=== PATIENT | female | born 1950 | race Caucasian/White ===

== ENCOUNTER 2017-10-30 11:18 | Outpatient (REF) | payer MEDICARE, MEDICAID, SELFPAY ==
[2017-10-30 11:32] LABS: Absolute Basophil Count 0.03 k/cumm (0.0-0.2); Absolute Eosinophil Count 0.26 k/cumm (0.0-0.7); Absolute Lymphocyte Count 3.15 k/cumm (1.2-3.4); Absolute Monocyte Count 0.71 k/cumm (0.11-0.7); Absolute Neutrophil Count 4.14 k/cumm (1.2-6.7); Basophils % 0.4; Eosinophils % 3.1; HCT 36.1 % (36.0-46.0); HGB 11.9 g/dL (12.0-15.5); Immature Grans % 1.2; Lymphocytes % 37.5; Mean Corpuscular Hemoglobin 35.2 pg (27.0-33.0); Mean Corpuscular Volume 106.8 fL (80-95); Mean Platelet Volume 10.6 fL (8.0-11.0); Monocytes % 8.5; Neutrophils % 49.3; Platelet Count 249 x1000/uL (130-400); RBC 3.38 m/cumm (4.00-5.20); RBC Distribution Width 13.7 % (11.7-14.6); White Blood Cell Count 8.39 k/cumm (4.4-10.8)
[2017-10-30 11:48] LABS: Diff Comment RBC Morph Reviewed
[2017-10-30 11:49] LABS: Anisocytosis 1+; Macrocytosis 2+
[2017-10-30 11:54] LABS: ALT 10 U/L (12-78); AST 18 U/L (15-37); Albumin 2.5 g/dL (3.4-5.0); Alkaline Phosphatase 109 U/L (46-116); Anion Gap 1.9 mmol/L (3-11); BUN 26 mg/dL (7-18); Bilirubin, Total 0.2 mg/dL (0.2-1.0); CO2 34.1 mmol/L (21.0-32.0); CREATININE 1.15 mg/dL (0.55-1.02); Calcium 9.2 mg/dL (8.5-10.1); Chloride 98 mmol/L (98-107); Estimated GFR 47.07 (mL/min/1.73m2); Glucose 184 mg/dL (70-100); Magnesium 2.1 mg/dL (1.8-2.4); Potassium 4.7 mmol/L (3.5-5.1); Sodium 134 mmol/L (136-145); Total Protein 6.6 g/dL (6.4-8.2)
== END 2017-10-30 11:19 ==
LOC: LBN 11:18
PROVIDERS: PCP Family Medicine; Visit Provider Family Medicine
DX: I10 Essential (primary) hypertension (principal); R53.83 Other fatigue; R25.2 Cramp and spasm
CPT/HCPCS: 80053; 83735; 85025

== ENCOUNTER 2017-11-04 13:49 | Outpatient (REF) | payer MEDICARE, MEDICAID, SELFPAY | END 2017-11-04 14:09 | LOC: LBN 13:49 | PROVIDERS: PCP Family Medicine; Visit Provider Family Medicine | DX: R19.7 Diarrhea, unspecified (principal) | CPT/HCPCS: 87324 ==

== ENCOUNTER 2018-01-25 22:28 | Outpatient (REF) | payer MEDICARE, MEDICAID, SELFPAY | END 2018-01-25 22:48 | LOC: LBN 22:28 | PROVIDERS: PCP Family Medicine; Visit Provider Family Medicine | DX: N39.0 Urinary tract infection, site not specified (principal) | CPT/HCPCS: 87077; 87086; 87186 ==

== ENCOUNTER 2018-01-26 12:44 | Outpatient (REF) | payer MEDICARE, MEDICAID, SELFPAY ==
[2018-01-26 13:08] LABS: Abs Immature Grans 0.06 k/cumm (0.0-0.09); Absolute Basophil Count 0.05 k/cumm (0.0-0.2); Absolute Eosinophil Count 0.08 k/cumm (0.0-0.7); Absolute Monocyte Count 0.92 k/cumm (0.11-0.7); Absolute Neutrophil Count 11.52 k/cumm (1.2-6.7); Basophils % 0.3; Eosinophils % 0.5; HCT 40.6 % (36.0-46.0); HGB 12.8 g/dL (12.0-15.5); Immature Grans % 0.4; Lymphocytes % 20.1; Mean Corp. HGB Concentration 31.5 g/dL (32.0-36.0); Mean Corpuscular Hemoglobin 32.9 pg (27.0-33.0); Mean Corpuscular Volume 104.4 fL (80-95); Mean Platelet Volume 11.3 fL (8.0-11.0); Monocytes % 5.8; Neutrophils % 72.9; Platelet Count 306 x1000/uL (130-400); RBC 3.89 m/cumm (4.00-5.20); RBC Distribution Width 13.1 % (11.7-14.6)
[2018-01-26 13:09] LABS: Absolute Lymphocyte Count 3.18 k/cumm (1.2-3.4)
[2018-01-26 13:28] LABS: ALT 14 U/L (12-78); AST 9 U/L (15-37); Albumin 3.1 g/dL (3.4-5.0); Alkaline Phosphatase 173 U/L (46-116); Anion Gap 10.2 mmol/L (3-11); BUN 36 mg/dL (7-18); Bilirubin, Total 0.3 mg/dL (0.2-1.0); CO2 29.8 mmol/L (21.0-32.0); CREATININE 1.36 mg/dL (0.55-1.02); Chloride 106 mmol/L (98-107); Estimated GFR 38.78 (mL/min/1.73m2); Glucose 370 mg/dL (70-100); Potassium 4.3 mmol/L (3.5-5.1); Sodium 146 mmol/L (136-145); Total Protein 7.8 g/dL (6.4-8.2)
[2018-01-26 14:37] LABS: ESR 72 MM/HR (0-30)
[2018-01-27 08:18] LABS: Hemoglobin A1C 8.1 % (4.5-6.2)
== END 2018-01-26 13:04 ==
LOC: LBN 12:44
PROVIDERS: PCP Family Medicine; Visit Provider Family Medicine
DX: I10 Essential (primary) hypertension (principal); F31.9 Bipolar disorder, unspecified; R73.09 Other abnormal glucose; R53.81 Other malaise; R63.4 Abnormal weight loss; M79.604 Pain in right leg; M79.605 Pain in left leg
CPT/HCPCS: 80053; 85652; 83036; 84443; 85025

== ENCOUNTER 2018-02-03 17:39 | Inpatient (IN) | payer MEDICARE, MEDICAID, SELFPAY ==
[2018-02-03] VITALS (105 sets, daily range): BP systolic 53–106; BP diastolic 30–71; PULSE 94–164; RESP 10–41; TEMP 36.4–37.3; O2SAT 73–98
--- NOTE | 2018-02-03 17:44 | DI.CT_ITS ---
SYMPTOM/DIAGNOSIS: UNRESPONSIVE, R/O ACUTE CVA NONCONTRAST HEAD CT: No intracranial hemorrhage or skull fracture is seen. A tube is seen in the nasal cavity and oral pharynx. Atrophy is again noted, grossly stable. IMPRESSION: No acute abnormality.
--- NOTE | 2018-02-03 17:52 | ED.GENADUL_ITS ---
Discharge Plan Disposition Patient Disposition: [facility] INPATIENT Condition: Critical Discharge Details Chief Complaint: Diabetes Clinical Impression: Hyperglycemic hyperosmolar nonketotic coma, HCAP (healthcare-associated pneumonia), Hypoxia, Altered mental status, UTI (urinary tract infection), Septic shock Reason For Visit: non responsive Primary Care Provider: Chasity Vidal ED Provider: [place] Home Meds and New Rx's Prescriptions: No Action lorazepam [Ativan] 0.5 MG tablet 0.5 mg PO TID Qty: 75 RF: 4 quetiapine [Seroquel] 200 MG tablet 300 tab PO BID RF: 0 tiotropium bromide [Spiriva with HandiHaler] 18 MCG capsule, w/inhalation device 1 puff Inhalation DAILY RF: 0 sennosides [senna] 8.6 MG tablet 1 tab PO QAM RF: 0 budesonide-formoterol [Symbicort] 10.2 GM HFA aerosol inhaler 1 inh PO BID RF: 0 nystatin 60 GM powder 2 gm Topical TID Qty: 1 RF: 0 valproic acid 250 mg Capsule 250 mg PO HS RF: 0 citalopram 20 mg Tablet 20 mg PO DAILY RF: 0 ergocalciferol (vitamin D2) [Vitamin D2] 50,000 unit Capsule 50,000 unit PO DIRECTED RF: 0 nitrofurantoin monohyd/m-cryst [Macrobid] 100 mg Capsule 100 mg PO BID RF: 0 divalproex [Depakote ER] 500 MG tablet extended release 24 hr 500 mg PO QAM RF: 0 multivit, iron, min no.8, FA [Therapeutic-M] 1 TAB tablet 1 tab PO DAILY RF: 0 Medical Decision Making 67-year-old female with history of dementia, schizophrenia and diabetes who presents from the [facility] after being found unresponsive with shallow respirations and hypotension. EMS states blood sugar read as high. Vitals per EMS heart rate 120s, blood pressure 80s/40s, O2 sat 80s. Patient arrived to the ED arousable to voice and pain and following some commands. Heart rate 120s, systolic blood pressure 60s, respiratory rate 30s, difficult to obtain O2 sat in the 80s-90s at times. Patient placed on nonrebreather initially. Accucheck HI. 2 IVs placed, bolus IV fluids, labs, urinalysis, stat CT head, chest x-ray. EKG notes a rate of 147, sinus tachycardia, T wave inversion in V2 [address] depression in V2. No acute ST elevation. QTc 547. QRS 122. Stat CT head negative. ABG notes a pH of 7.29, PCO2 45, PO2 61, O2 sat 80%, bicarb 22. Pt placed on nasal bipap - O2 sat 94%. 1844 -- Labs reviewed and noted a white blood cell count of 20, hemoglobin 13, bands 4 INR 2, sodium 136, potassium 4.9, chloride 113, bicarb 25, anion gap 17 , BUN 115, creatinine 3.97, lactate 5.7, troponin 0.13. 1899 -- Delay in obtaining glucose read, lab called and was 1220. Presentation appears consistent with hyperosmolar hyperglycemic state. Patient on second liter and SBP 70s, will place central line. Insulin bolus and drip ordered. 1929 -- central line placed. JANIE Quintanilla d/eleni hospitalist while I was placing central line - pt accepted for admission to ICU. Will start levophed for septic shock due to UTI, pneumonia and associated HHS. Patient O2 sat remains low 88% on nasal BiPAP. Had been as high as 91% on nasal BiPAP. Will give albuterol neb and placed on BiPAP to see if patient tolerates. 2024 -- O2 sat 96% on bipap/neb. No history of CHF endorsed by EMS on patient arrival. Upon search of patient's records, there is a history of CHF. Patient was given 2 L of normal saline due to hypotension. Her lung sounds were diminished at the bases but no obvious crackles were noted. Medical Records Medical records reviewed: Yes I reviewed the patient's medical records. Lab Data Lab results reviewed: Yes I reviewed the patient's lab results. 02/03/18 19:40 Blood Blood Culture - Pending 02/03/18 19:00 Urine - Reflex from Ua Urine Culture - Pending 02/03/18 19:13 Blood Blood Culture - Pending Laboratory Tests Range/Units 02/03/18 02/03/18 02/03/18 18:00 18:00 18:00 WBC (4.4-10.8) k/cumm 20.84 H RBC (4.00-5.20) m/cumm 4.18 Hgb (12.0-15.5) g/dL 13.8 Hct (36.0-46.0) % 44.5 MCV (80-95) fL 106.5 H MCH (27.0-33.0) pg 33.0 MCHC (32.0-36.0) g/dL 31.0 L RDW (11.7-14.6) % 14.2 Plt Count (130-400) x1000/uL 236 MPV (8.0-11.0) fL 13.0 H Immature Gran % 0.0 Neutrophils % 75.0 Lymphocytes % 19.0 Monocytes % 2.0 Eosinophils % 0.0 Basophils % 0.0 Absolute Neutrophils (1.2-6.7) k/cumm 16.46 H Band Neutrophils % 4.0 Absolute Lymphocytes (1.2-3.4) k/cumm 3.96 H Absolute Monocytes (0.11-0.7) k/cumm 0.42 Absolute Eosinophils (0.0-0.7) k/cumm 0.00 Absolute Basophils (0.0-0.2) k/cumm 0.00 Differential Comment Manual differential Atypical Lymphocytes 0 RBC Morphology See below Polychromasia Present Macrocytosis 1+ PT (9.3-10.8) sec INR (1.0-3.5) APTT (21.0-31.4) sec Sample Site pCO2 (34-47) mmHg pO2 (83-108) mmHg O2 Saturation (94-98) % ABG pH (7.35-7.45) ABG HCO3 (22-28) mmol/L ABG Total CO2 (22-29) mmol/L ABG Base Excess (-3-3) mmol/L Oxygen Liter Flow L FiO2 % Sodium (136-145) mmol/L 156 H* Potassium (3.5-5.1) mmol/L 4.9 Chloride (98-107) mmol/L 113 H Carbon Dioxide (21.0-32.0) mmol/L 25.8 Anion Gap (3-11) mmol/L 17.2 H BUN (7-18) mg/dL 115 H* Creatinine (0.55-1.02) mg/dL 3.97 H* Estimated GFR/1.73 m2 (mL/min/1.73m2) 11.27 Glucose (70-100) mg/dL 1220 H* Lactate (0.6-1.4) mmol/L 5.7 H Calcium (8.5-10.1) mg/dL 10.2 H Magnesium (1.8-2.4) mg/dL 3.0 H Total Bilirubin (0.2-1.0) mg/dL 0.2 AST (15-37) U/L 10 L ALT (12-78) U/L 16 Alkaline Phosphatase (46-116) U/L 201 H Ammonia (11-32) umol/L Troponin I (0.00-0.06) ng/mL 0.13 H Total Protein (6.4-8.2) g/dL 8.1 Albumin (3.4-5.0) g/dL 2.4 L Lipase (73-393) U/L 98 TSH (0.358-3.74) uIU/mL Urine Color (Yellow) Urine Clarity Urine pH (5-8) Ur Specific [place] (1.005-1.025) Urine Protein (Negative) mg/dL Urine Ketones (Negative) mg/dL Urine Blood (Negative) Urine Nitrite (Negative) Urine Bilirubin (Negative) Urine Urobilinogen (Up TO 0.2) EU/dL Ur Leukocyte Esterase (Negative) Urine RBC (0-2) Urine WBC (0-5) HPF Ur Epithelial Cells (Negative) HPF Urine Crystals (Negative) HPF Urine Bacteria (Negative) HPF Urine Casts (Negative) LPF Urine Mucus (Negative) Urine Other (Negative) Ur Culture Indicated? Urine Glucose (Negative) mg/dL Range/Units 02/03/18 02/03/18 02/03/18 18:00 18:00 18:00 WBC (4.4-10.8) k/cumm RBC (4.00-5.20) m/cumm Hgb (12.0-15.5) g/dL Hct (36.0-46.0) % MCV (80-95) fL MCH (27.0-33.0) pg MCHC (32.0-36.0) g/dL RDW (11.7-14.6) % Plt Count (130-400) x1000/uL MPV (8.0-11.0) fL Immature Gran % Neutrophils % Lymphocytes % Monocytes % Eosinophils % Basophils % Absolute Neutrophils (1.2-6.7) k/cumm Band Neutrophils % Absolute Lymphocytes (1.2-3.4) k/cumm Absolute Monocytes (0.11-0.7) k/cumm Absolute Eosinophils (0.0-0.7) k/cumm Absolute Basophils (0.0-0.2) k/cumm Differential Comment Atypical Lymphocytes RBC Morphology Polychromasia Macrocytosis PT (9.3-10.8) sec 18.7 H INR (1.0-3.5) 2.0 APTT (21.0-31.4) sec 26.1 Sample Site Left radial pCO2 (34-47) mmHg 45 pO2 (83-108) mmHg 61 L O2 Saturation (94-98) % 88 L ABG pH (7.35-7.45) 7.29 L ABG HCO3 (22-28) mmol/L 22 ABG Total CO2 (22-29) mmol/L 23 ABG Base Excess (-3-3) mmol/L -4.0 L Oxygen Liter Flow L Nrb FiO2 % 15 Sodium (136-145) mmol/L Potassium (3.5-5.1) mmol/L Chloride (98-107) mmol/L Carbon Dioxide (21.0-32.0) mmol/L Anion Gap (3-11) mmol/L BUN (7-18) mg/dL Creatinine (0.55-1.02) mg/dL Estimated GFR/1.73 m2 (mL/min/1.73m2) Glucose (70-100) mg/dL Lactate (0.6-1.4) mmol/L Calcium (8.5-10.1) mg/dL Magnesium (1.8-2.4) mg/dL Total Bilirubin (0.2-1.0) mg/dL AST (15-37) U/L ALT (12-78) U/L Alkaline Phosphatase (46-116) U/L Ammonia (11-32) umol/L Troponin I (0.00-0.06) ng/mL Total Protein (6.4-8.2) g/dL Albumin (3.4-5.0) g/dL Lipase (73-393) U/L TSH (0.358-3.74) uIU/mL 0.54 Urine Color (Yellow) Urine Clarity Urine pH (5-8) Ur Specific [place] (1.005-1.025) Urine Protein (Negative) mg/dL Urine Ketones (Negative) mg/dL Urine Blood (Negative) Urine Nitrite (Negative) Urine Bilirubin (Negative) Urine Urobilinogen (Up TO 0.2) EU/dL Ur Leukocyte Esterase (Negative) Urine RBC (0-2) Urine WBC (0-5) HPF Ur Epithelial Cells (Negative) HPF Urine Crystals (Negative) HPF Urine Bacteria (Negative) HPF Urine Casts (Negative) LPF Urine Mucus (Negative) Urine Other (Negative) Ur Culture Indicated? Urine Glucose (Negative) mg/dL Range/Units 02/03/18 02/03/18 19:00 19:55 WBC (4.4-10.8) k/cumm RBC (4.00-5.20) m/cumm Hgb (12.0-15.5) g/dL Hct (36.0-46.0) % MCV (80-95) fL MCH (27.0-33.0) pg MCHC (32.0-36.0) g/dL RDW (11.7-14.6) % Plt Count (130-400) x1000/uL MPV (8.0-11.0) fL Immature Gran % Neutrophils % Lymphocytes % Monocytes % Eosinophils % Basophils % Absolute Neutrophils (1.2-6.7) k/cumm Band Neutrophils % Absolute Lymphocytes (1.2-3.4) k/cumm Absolute Monocytes (0.11-0.7) k/cumm Absolute Eosinophils (0.0-0.7) k/cumm Absolute Basophils (0.0-0.2) k/cumm Differential Comment Atypical Lymphocytes RBC Morphology Polychromasia Macrocytosis PT (9.3-10.8) sec INR (1.0-3.5) APTT (21.0-31.4) sec Sample Site pCO2 (34-47) mmHg pO2 (83-108) mmHg O2 Saturation (94-98) % ABG pH (7.35-7.45) ABG HCO3 (22-28) mmol/L ABG Total CO2 (22-29) mmol/L ABG Base Excess (-3-3) mmol/L Oxygen Liter Flow L FiO2 % Sodium (136-145) mmol/L Potassium (3.5-5.1) mmol/L Chloride (98-107) mmol/L Carbon Dioxide (21.0-32.0) mmol/L Anion Gap (3-11) mmol/L BUN (7-18) mg/dL Creatinine (0.55-1.02) mg/dL Estimated GFR/1.73 m2 (mL/min/1.73m2) Glucose (70-100) mg/dL Lactate (0.6-1.4) mmol/L Calcium (8.5-10.1) mg/dL Magnesium (1.8-2.4) mg/dL Total Bilirubin (0.2-1.0) mg/dL AST (15-37) U/L ALT (12-78) U/L Alkaline Phosphatase (46-116) U/L Ammonia (11-32) umol/L 53 H Troponin I (0.00-0.06) ng/mL Total Protein (6.4-8.2) g/dL Albumin (3.4-5.0) g/dL Lipase (73-393) U/L TSH (0.358-3.74) uIU/mL Urine Color (Yellow) Yellow Urine Clarity Sl cloudy Urine pH (5-8) 5.5 Ur Specific [place] (1.005-1.025) 1.010 Urine Protein (Negative) mg/dL Negative Urine Ketones (Negative) mg/dL Negative Urine Blood (Negative) Moderate H Urine Nitrite (Negative) Positive H Urine Bilirubin (Negative) Negative Urine Urobilinogen (Up TO 0.2) EU/dL 0.2 Ur Leukocyte Esterase (Negative) Trace H Urine RBC (0-2) >50 H Urine WBC (0-5) HPF 5-10 Ur Epithelial Cells (Negative) HPF Few Urine Crystals (Negative) HPF Negative Urine Bacteria (Negative) HPF Many Urine Casts (Negative) LPF Negative Urine Mucus (Negative) Negative Urine Other (Negative) Negative Ur Culture Indicated? Yes Urine Glucose (Negative) mg/dL >=1000 H ECG Data Attestation: I personally reviewed and interpreted this ECG (s) as follows: HPI General Mode of arrival: EMS . Date/Time Provider Initiated Documentation: 02/03/18 17:44 . Limitations to Documentation: altered mental status . Information obtained by: EMS . HPI Narrative: Patient is a 67-year-old female with history of dementia, diabetes, schizophrenia who presents from the [facility] after found unresponsive with shallow respirations. Patient was noted to have a high blood sugar reading. Per EMS, HR 120s, BP per EMS 80/60s. Unable to obtain IV per EMS. Patient was placed on nonrebreather for O2 sat 80s. Related Data Home Medications Medication Instructions Recorded Confirmed quetiapine [Seroquel] 300 tab PO BID 07/04/13 02/03/18 sennosides [senna] 1 tab PO QAM 07/04/13 02/03/18 tiotropium bromide [Spiriva with 1 puff INHALATION DAILY 07/04/13 02/03/18 HandiHaler] divalproex [Depakote ER] 500 mg PO QAM 10/03/16 02/03/18 multivit, iron, min no.8, FA 1 tab PO DAILY 10/03/16 02/03/18 [Therapeutic-M] budesonide-formoterol [Symbicort] 1 inh PO BID 01/16/17 02/03/18 nystatin 2 gm TOPICAL TID #1 jar 01/19/17 lorazepam [Ativan] 0.5 mg PO TID #75 tab-cap 04/20/17 02/03/18 citalopram 20 mg PO DAILY 02/03/18 02/03/18 ergocalciferol (vitamin D2) 50,000 unit PO DIRECTED 02/03/18 02/03/18 [Vitamin D2] nitrofurantoin monohyd/m-cryst 100 mg PO BID 02/03/18 02/03/18 [Macrobid] valproic acid 250 mg PO HS 02/03/18 02/03/18 Previous Rx's Medication Instructions Recorded nystatin 2 gm TOPICAL TID #1 jar 01/19/17 Allergies Allergy/AdvReac Type Severity Reaction Status Date / Time No Known Allergies Allergy Unverified 02/03/18 19:10 General Stated Complaint: AMS/LOC BHAVESH: 2 Review of Systems Review of Systems Unobtainable due to mental status PFSH Alzheimer's dementia (Chronic) Diabetes (Chronic) Schizophrenia (Chronic) History of ankle surgery (Acute) Medical History Alzheimer's dementia (Chronic) Diabetes (Chronic) Schizophrenia (Chronic) Social History Smoking/Tobacco Use Status: Former Tobacco Use Surgical History History of ankle surgery (Acute) Social History Smoking/Tobacco Use Status: Former Tobacco Use Exam Const General: ill appearing Orientation: other (arousable to voice and pain) HENDC Head: normal to inspection Ears: external ears normal Face and sinus: normal facial exam Mouth: mucous membranes dry Eyes Conjunctivae: conjunctival abnormality bilaterally discharge purulent Pupils: PERRL Neck Neck: normal visual inspection Lymphatic: no lymphadenopathy noted Chest Chest: normal inspection of the chest Resp Auscultation: clear to auscultation bilaterally Cardio Rate: tachycardic Rhythm: regular rhythm GI Inspection: normal to inspection Palpation: soft, not firm, no guarding, no hepatosplenomegaly, no masses and nontender Skin General skin exam: no rashes or lesions noted Neuro General: moves all extremities and other (unresponsive but arousable to voice and pain) Extrem General: normal to inspection and no edema Psych Thought Process: normal Course Vital Signs Temperature 97.5 F L 02/03/18 17:40 Pulse 126 H 02/03/18 17:40 Respiratory Rate 38 H 02/03/18 17:40 Blood Pressure 106/58 L 02/03/18 17:40 Pulse Oximetry 93 L 02/03/18 17:40 Temperature 97.5 F L 02/03/18 17:40 Pulse 126 H 02/03/18 17:40 Respiratory Rate 38 H 02/03/18 17:40 Respiratory Effort 02/03/18 17:44 Blood Pressure 106/58 L 02/03/18 17:40 Pulse Oximetry 93 L 02/03/18 17:40 Oxygen Delivery Method Non-Rebreather 02/03/18 17:40 Procedures Central Line Placement Right Femoral: Time Out Performed: Yes Patient Placed on Monitor/Pulse Ox: Yes Prep: mask, gown and gloves Central Line Prep: Chlorhexidine scrub Local Anesthetic: Lidocaine 1% Central Line Lumen Inserted: triple Post Procedure: good blood return, all ports aspirated, flushed, capped and sutured in place with 3-0 nylon Patient Tolerated Procedure: well Complications: none Critical Care Time Critical Care Time: Yes Total Critical Care Time: 120
[2018-02-03] MEDS: Normal Saline 1,000 ML 1000 ML IV ×3 (18:00→22:18)
[2018-02-03 18:07] LABS: Lactate-non-spesis 5.7 mmol/L (0.6-1.4)
[2018-02-03 18:10] LABS: Abs Immature Grans 0.05 k/cumm (0.0-0.09); FIO2 15 %; FIO2L NRB L; HCT 44.5 % (36.0-46.0); HGB 13.8 g/dL (12.0-15.5); Mean Corpuscular Volume 106.5 fL (80-95); Platelet Count 236 x1000/uL (130-400); RBC 4.18 m/cumm (4.00-5.20); RBC Distribution Width 14.2 % (11.7-14.6); Site Left Radial; White Blood Cell Count 20.84 k/cumm (4.4-10.8)
[2018-02-03 18:11] LABS: HCO3 22 mmol/L (22-28); pCO2 45 mmHg (34-47); pH 7.29 (7.35-7.45); pO2 61 mmHg (83-108); sO2 88 % (94-98); tCO2 23 mmol/L (22-29)
--- NOTE | 2018-02-03 18:14 | DI.RAD_ITS ---
SYMPTOM/DIAGNOSIS: UNRESPONSIVE PORTABLE CHEST: Comparison is made with 18 Mar 2016. Multiple leads are seen overlying the chest. The heart size is normal. Increased densities are again noted at the left lung base which could represent a combination of infiltrate, effusion or atelectasis. The lungs are not well inflated. IMPRESSION: Limited exam. Question of left lower lobe infiltrate.
[2018-02-03 18:25] LABS: PTT Activated 26.1 sec (21.0-31.4); Prothrombin Time 18.7 sec (9.3-10.8)
[2018-02-03 18:26] LABS: ALT 16 U/L (12-78); AST 10 U/L (15-37); Albumin 2.4 g/dL (3.4-5.0); Alkaline Phosphatase 201 U/L (46-116); Anion Gap 17.2 mmol/L (3-11); Bilirubin, Total 0.2 mg/dL (0.2-1.0); CO2 25.8 mmol/L (21.0-32.0); Calcium 10.2 mg/dL (8.5-10.1); Chloride 113 mmol/L (98-107); Estimated GFR 11.27 (mL/min/1.73m2); Lipase 98 U/L (73-393); Potassium 4.9 mmol/L (3.5-5.1); Total Protein 8.1 g/dL (6.4-8.2)
[2018-02-03 18:29] LABS: Absolute Lymphocyte Count 3.96 k/cumm (1.2-3.4); Atypical Lymphocytes % 0
[2018-02-03 18:30] LABS: Absolute Monocyte Count 0.42 k/cumm (0.11-0.7); Diff Comment Manual Differential; Macrocytosis 1+; Polychromasia Present
--- NOTE | 2018-02-03 18:30 | RESPIRATORY ---
Patient placed on nasal CPAP to provide some form of positive pressure. Patient unable to protect airway, not following command and only responds to sternal rub and for this reason, BiPAP not considered. CPAP pressure set to 16 with a 10Lpm oxygen bleed in, small nasal mask used. SpO2 via ear probe 94%
[2018-02-03 18:32] LABS: BUN 115 mg/dL (7-18); CREATININE 3.97 mg/dL (0.55-1.02)
[2018-02-03 18:33] LABS: Sodium 156 mmol/L (136-145)
--- NOTE | 2018-02-03 18:33 | DI.VRAD_ITS ---
EXAM: CT Head Without Contrast EXAM DATE/TIME: 02/03/2018 5:46 PM CLINICAL HISTORY: 67 years old, female; Signs and symptoms; Coma or unconsciousness and other: Unresponsive; Additional info: R/O acute CVA TECHNIQUE: Axial computed tomography images of the head/brain without contrast. Coronal and sagittal reformatted images were created and reviewed. COMPARISON: CT HEAD WITHOUT CONTRAST 10/03/2016 2:18 PM FINDINGS: Brain: Chronic lacunar infarct versus prominent VR space within the inferior right basal ganglia. Age-related involutional changes and chronic microvascular ischemic disease. No evidence for acute transcortical infarct. No mass effect or midline shift. No extra-axial collection. No acute intracranial hemorrhage. Basal cisterns are patent. Ventricles: Normal. No ventriculomegaly. Bones/joints: Normal. No acute fracture. Sinuses: Normal as visualized. No acute sinusitis. Mastoid air cells: Tympanomastoid cavities are clear. Orbits: Bilateral cataract surgery. Soft tissues: Normal. IMPRESSION: No evidence for acute transcortical infarct, acute intracranial hemorrhage, or mass effect. [place] Stroke Program Early CT Score (ASPECTS) = 10 Dictated and Authenticated by: Ugo Osorio MD. Ordering:RUDY SHEETS MD
[2018-02-03 18:52] LABS: Glucose 1220 mg/dL (70-100)
[2018-02-03] MEDS: Insulin REGULAR-Human 100 UNITS/ML UNIT 7 UNITS IV (19:02)
--- NOTE | 2018-02-03 19:03 | DI.VRAD_ITS ---
EXAM: XR Chest, 1 View EXAM DATE/TIME: 02/03/2018 6:14 PM CLINICAL HISTORY: 67 years old, female; Condition or disease; Other: Unresponsive TECHNIQUE: XR of the chest, 1 view. COMPARISON: [place] PORTABLE CHEST ONE VIEW 01/16/2017 9:32 PM FINDINGS: Lungs: Left lower lobe airspace opacity may represent atelectasis, pneumonia, or combination of both. Pleural space: No pneumothorax. No sizable pleural effusion. Heart/Mediastinum: Mild cardiomegaly. Bones/joints: Unremarkable. IMPRESSION: Left lower lobe airspace opacity may represent atelectasis, pneumonia, or combination of both. Dictated and Authenticated by: Ugo Osorio MD. Ordering:STALIN ROOT MD
[2018-02-03 19:30] LABS: Bilirubin Negative (Negative); Blood Moderate (Negative); Clarity Sl Cloudy; Glucose >=1000 mg/dL (Negative); Ketones Negative (Negative); Leukocyte Esterase Trace (Negative); Nitrite Positive (Negative); Urobilinogen 0.2 EU/dL (Up TO 0.2); pH 5.5 (5-8)
[2018-02-03 19:39] LABS: Bacteria Many HPF (Negative); C & S Indicated? Yes; Casts Negative LPF (Negative); Crystals Negative HPF (Negative); Epithelial Cells Few HPF (Negative); Mucus Negative (Negative); Other Cells Negative (Negative); RBC >50 (0-2)
[2018-02-03] MEDS: Albuterol/Ipratropium 3 ML UPD VIAL UPD (19:40)
[2018-02-03] MEDS: PIPERACILLIN/TAZO 3.375 GM in Normal Saline 50 ML IVPB (19:53)
[2018-02-03] MEDS: Normal Saline Flush 10 ML SYR IVP ×3 (19:54→22:29)
[2018-02-03] MEDS: Albuterol 2.5 MG/3 ML INH SOLN VIAL ×2 (20:04→20:07)
[2018-02-03 20:13] LABS: TSH 0.54 uIU/mL (0.358-3.74)
[2018-02-03 20:23] LABS: Ammonia 53 umol/L (11-32)
[2018-02-03 20:24] LABS: Anion Gap 17.4 mmol/L (3-11); CO2 20.6 mmol/L (21.0-32.0); CREATININE 3.48 mg/dL (0.55-1.02); Calcium 8.4 mg/dL (8.5-10.1); Chloride 123 mmol/L (98-107); Estimated GFR 13.12 (mL/min/1.73m2)
[2018-02-03 20:33] LABS: NT-proBNP 2212 pg/mL
[2018-02-03 20:38] LABS: BUN 103 mg/dL (7-18); Glucose 839 mg/dL (70-100); Sodium 161 mmol/L (136-145)
[2018-02-03 20:39] LABS: Potassium 2.9 mmol/L (3.5-5.1)
[2018-02-03] MEDS: POTASSIUM CHLORIDE 10 MEQ/100 ML BAG 100 MEQ IVPB (20:48)
[2018-02-03 20:50] LABS: HCO3 17 mmol/L (22-28); pCO2 41 mmHg (34-47); pH 7.23 (7.35-7.45); pO2 69 mmHg (83-108); sO2 90 % (94-98); tCO2 16 mmol/L (22-29)
[2018-02-03 20:52] LABS: FIO2 60 %; FIO2L BiPAP L; Site Left Radial
--- NOTE | 2018-02-03 21:22 | HPE_ITS ---
Date of service: 02/03/18 Time of Service: 21:18 Assessment and Plan (1) Sepsis: Current visit: Yes Status: Acute Patient meets criteria for sepsis and has required vasopressors in addition to high volume iv fluids. Blood and urine cultures have been sent and patient has been started on Zosyn and Vancomycin for treatment of HCAP. Continue hemodynamic support, aggressive iv fluid hydration for her HHNK, and LUIS. Monitor hourly urine output, repeat her BMP every couple hours w/ repeat troponin and lactate levels. Respiratory support w/ BIPAP and if she fails this then proceed w/ intubation. Add stress dose hydrocortison per surviving sepsis campaing findings. (2) Diabetic hyperosmolar non-ketotic state: Current visit: Yes Status: Acute not clear as to why she was not on any diabetic meds at the long term except a note from Dr. Ronquillo in Dec 02, 2017 indicating that she has been diet controlled w/ reported A1c of 6.9% in July 2017. It could be that her infections caused her to precipitously elevate her glucose and d/t her dementia she was not able to communicate or be aware of how dehydrated she was getting to go into gluocse over 1200 and severe hyperosmolar state w/ LUIS. I will continue aggressive iv fluid hydration however I will repeat her BMP every couple hours and will change her fluids to hypotonic solutions w/ add KCL. I will continue her insulin drip although her UA was negative for ketones. (3) HCAP (healthcare-associated pneumonia): Current visit: Yes Status: Acute continue suportive care w/ BIPAP, aerosolized bronchodilators, iv antibiotics (Vancomycin and Zosyn). If needed proceed w/ intubation and mechanical ventilation. She remains a full code and apparently no guardian was ever set up for her. (4) UTI (urinary tract infection): Current visit: Yes Status: Acute iv fluids and antibiotics as above. (5) Acute kidney injury (nontraumatic): Current visit: Yes Status: Acute monitoring of UO hourly, monitor BMP every couple hours, aggressive iv fluid hydration. if not improving then check renal ultrasound. (6) Elevated troponin I level: Current visit: Yes Status: Acute Probably due to demand ischemia. We will follow her troponin levels and check an echocardiogram in the morning. Treat her underlying sepsis and hyperosmolar hyperglycemic nonketotic state. History of Present Illness Chief Complaint: altered LOC, hyperglycemia, hypotension, hypoxemia Narrative: 67-year-old female resident of the [facility] in [facility] with a past medical history significant for dementia, schizophrenia, diabetes mellitus (not currently on medical treatment) presented to the emergency room after being found unresponsive with shallow respirations and hypotension. EMS report her blood sugars is reading high and her vital signs and showing tachycardia in the 120s and a low blood pressure of 80s over 40s and hypoxemia with oxygen saturation in the 80s. Upon arrival to emergency department she was found to be arousable to voice and pain and follow some simple commands but was not coherent. Heart rate was in the 120 sinus tachycardia and her systolic blood pressure was in the 60s and her respirations were labored and tachypneic in the 30s. Further workup in the emergency room included routine labs including a CBC demonstrating a leukocytosis of 20,000 with 4 bands and elevated INR of 2 and severe hyperglycemia with glucose of 1220 mg/dL and a CMP that showed severe hyponatremia with a serum sodium of 156, chloride 113, CO2 25.8, anion gap of 17.2, and acute kidney injury with a BUN of 115 and creatinine 3.97. Urinalysis was suggestive of UTI with many bacteria with 5-10 white blood cells and positive nitrites but the urinalysis was negative for ketones. Urine glucose was greater than 1000. Blood lactate was elevated at 5.7. Arterial blood gas showed a pH of 7.29 with a PCO2 of 45 PO2 of 61 and bicarbonate of 22. Cardiac troponin I level was elevated at 0.13. Transaminases and lipase are all normal. Alkaline phosphatase was elevated at 201. Total bilirubin was normal at 0.2. Radiologic studies include a chest x-ray and a CT scan of the head. Noncontrast CT scan of the head showed old chronic lacunar infarcts within the inferior right basal ganglia as well as age-related involutional changes and chronic microvascular ischemic disease but no evidence for acute transcortical infarct and no mass-effect or midline shift. No acute intracranial hemorrhage was seen. Chest x-ray was suggestive of a left lower lobe pneumonia versus atelectasis. Treatment in the emergency room included a bolus of IV fluids and initiation of an insulin drip and initiation of nasal BiPAP. Oxygen saturation came up to 96 % patient was started on a norepinephrine drip for hemodynamic support after placement of central line by Dr. [place]. Patient is now admitted to the intensive care unit for treatment of sepsis and healthcare acquired pneumonia as well as hypovolemic shock and hyperosmolar non-ketotic hyperglycemia. Review of Systems Review of Systems Unobtainable due to mental status PFSH COPD (chronic obstructive pulmonary disease) (Chronic) Essential hypertension (Chronic) Breast cancer (Inactive) Alzheimer's dementia (Chronic) Diabetes (Chronic) Schizophrenia (Chronic) History of ankle surgery (Acute) Medical History Alzheimer's dementia (Chronic) Diabetes (Chronic) Schizophrenia (Chronic) Social History Smoking/Tobacco Use Status: Former Tobacco Use Surgical History History of ankle surgery (Acute) Social History Smoking/Tobacco Use Status: Former Tobacco Use Meds Home Medications Medication Instructions Recorded Confirmed Type quetiapine [Seroquel] 300 tab PO BID 07/04/13 02/03/18 History sennosides [senna] 1 tab PO QAM 07/04/13 02/03/18 History tiotropium bromide [Spiriva with 1 puff INHALATION DAILY 07/04/13 02/03/18 History HandiHaler] divalproex [Depakote ER] 500 mg PO QAM 10/03/16 02/03/18 History multivit, iron, min no.8, FA 1 tab PO DAILY 10/03/16 02/03/18 History [Therapeutic-M] budesonide-formoterol [Symbicort] 1 inh PO BID 01/16/17 02/03/18 History nystatin 2 gm TOPICAL TID #1 jar 01/19/17 Rx lorazepam [Ativan] 0.5 mg PO TID #75 tab-cap 04/20/17 02/03/18 History citalopram 20 mg PO DAILY 02/03/18 02/03/18 History ergocalciferol (vitamin D2) 50,000 unit PO DIRECTED 02/03/18 02/03/18 History [Vitamin D2] nitrofurantoin monohyd/m-cryst 100 mg PO BID 02/03/18 02/03/18 History [Macrobid] valproic acid 250 mg PO HS 02/03/18 02/03/18 History Allergies Allergy/AdvReac Type Severity Reaction Status Date / Time No Known Allergies Allergy Unverified 02/03/18 19:10 Exam Const General: acute distress moderate (tachypneic and tachycardic) and combative Nutritional Appearance: average body habitus Orientation: obtunded Limitations: altered mental status [facility] Head: normal to inspection, no palpable skull fracture, normocephalic and atraumatic General nose exam: external nose normal and nares normal Face and sinus: normal facial exam Mouth: other (dry mucous membranes) Teeth and gingiva: edentulous Eyes Periorbital: periorbital findings normal Eyelids: eyelids normal Conjunctivae: conjunctivae normal Sclera: sclerae normal Cornea: corneas normal Pupils: PERRL Neck Neck: normal visual inspection, full ROM, no lymphadenopathy, no meningeal signs , trachea midline and supple Carotids: normal carotid upstroke Chest Chest: normal inspection of the chest and normal palpation of entire chest wall Resp Effort & Inspection: respiratory distress, tachypneic and uses accessory muscles Auscultation: bronchovesicular breath sounds bilaterally and crackles bilaterally Cardio Jugular venous pressure: no JVD Palpation: normal PMI Rate: tachycardic Rhythm: regular rhythm Heart Sounds: no gallops and no murmurs Pulses: brachial pulses present, radial pulses present, posterior tibial pulses present bilaterally 1+ and diminished and dorsalis pedis pulses present bilaterally 1+ and diminished GI Inspection: normal to inspection Palpation: soft and no hepatosplenomegaly Percussion: normal to percussion Auscultation: hypoactive bowel sounds Skin General skin exam: excoriation(s) (right pretibia) Neuro General: moves all extremities and no focal motor deficits Cranial Nerves: no nystagmus, facial strength normal, tongue midline, gag reflex normal, able to rotate head bilaterally and able to elevate shoulders bilaterally Cognition: abnormal cognition (moans to noxious stimuli but does not answer questions nor does she spontaneously open her eyes and does not regard the examiner; GCS=8 ([id number])) Speech: abnormal speech garbled Motor: muscle tone normal throughout Sensory Exam: no sensory deficits noted Extrem General: no joint enlargement, no clubbing, cyanosis or edema, no pedal edema and vascular access (right femoral CVP present) Psych Appearance: disheveled Mental Status: other (agitated and restless) Speech and Movement: other (incoherent noises; no intelligible speech) Mood: other (agitated and restless) Other: obtunded Results Imaging Chest x-ray: image reviewed (IMPRESSION: Left lower lobe airspace opacity may represent atelectasis, pneumonia, or combination of both. Dictated and Authenticated by: Ugo Osorio MD.) Additional studies: CT chest: IMPRESSION: No evidence for acute transcortical infarct, acute intracranial hemorrhage, or mass effect. [place] Stroke Program Early CT Score (ASPECTS) = 10 Dictated and Authenticated by: Ugo Osorio MD. EKG: image reviewed (Sinus tachycardia at a rate of 127 bpm with right bundle branch block with concordant ST T wave changes across the anterior precordial leads similar to previous ECG dated January 16, 2017 with the exception that the heart rate is now faster) Labs : 02/03/18 18:00 02/04/18 04:05 Laboratory Results - last 24 hr 02/03/18 02/03/18 02/03/18 18:00 18:00 18:00 WBC 20.84 H RBC 4.18 Hgb 13.8 Hct 44.5 MCV 106.5 H MCH 33.0 MCHC 31.0 L RDW 14.2 Plt Count 236 MPV 13.0 H Immature Gran % 0.0 Neutrophils % 75.0 Lymphocytes % 19.0 Monocytes % 2.0 Eosinophils % 0.0 Basophils % 0.0 Absolute Neutrophils 16.46 H Band Neutrophils 4.0 Absolute Lymphocytes 3.96 H Absolute Monocytes 0.42 Absolute Eosinophils 0.00 Absolute Basophils 0.00 Differential Comment Manual differential Atypical Lymphocytes 0 RBC Morphology See below Polychromasia Present Macrocytosis 1+ PT INR APTT Sample Site pCO2 pO2 O2 Saturation ABG pH ABG HCO3 ABG Total CO2 ABG Base Excess Oxygen Liter Flow FiO2 Sodium 156 H* Potassium 4.9 Chloride 113 H Carbon Dioxide 25.8 Anion Gap 17.2 H BUN 115 H* Creatinine 3.97 H* Estimated GFR/1.73 m2 11.27 Glucose 1220 H* Lactate 5.7 H Calcium 10.2 H Magnesium 3.0 H Total Bilirubin 0.2 AST 10 L ALT 16 Alkaline Phosphatase 201 H Ammonia Troponin I 0.13 H NT-Pro-B Natriuret Pep Total Protein 8.1 Albumin 2.4 L Lipase 98 TSH Urine Color Urine Clarity Urine pH Ur Specific [place] Urine Protein Urine Ketones Urine Blood Urine Nitrite Urine Bilirubin Urine Urobilinogen Ur Leukocyte Esterase Urine RBC Urine WBC Ur Epithelial Cells Urine Crystals Urine Bacteria Urine Casts Urine Mucus Urine Other Ur Culture Indicated? Urine Glucose 02/03/18 02/03/18 02/03/18 18:00 18:00 18:00 WBC RBC Hgb Hct MCV MCH MCHC RDW Plt Count MPV Immature Gran % Neutrophils % Lymphocytes % Monocytes % Eosinophils % Basophils % Absolute Neutrophils Band Neutrophils Absolute Lymphocytes Absolute Monocytes Absolute Eosinophils Absolute Basophils Differential Comment Atypical Lymphocytes RBC Morphology Polychromasia Macrocytosis PT 18.7 H INR 2.0 APTT 26.1 Sample Site Left radial pCO2 45 pO2 61 L O2 Saturation 88 L ABG pH 7.29 L ABG HCO3 22 ABG Total CO2 23 ABG Base Excess -4.0 L Oxygen Liter Flow Nrb FiO2 15 Sodium Potassium Chloride Carbon Dioxide Anion Gap BUN Creatinine Estimated GFR/1.73 m2 Glucose Lactate Calcium Magnesium Total Bilirubin AST ALT Alkaline Phosphatase Ammonia Troponin I NT-Pro-B Natriuret Pep Total Protein Albumin Lipase TSH 0.54 Urine Color Urine Clarity Urine pH Ur Specific [place] Urine Protein Urine Ketones Urine Blood Urine Nitrite Urine Bilirubin Urine Urobilinogen Ur Leukocyte Esterase Urine RBC Urine WBC Ur Epithelial Cells Urine Crystals Urine Bacteria Urine Casts Urine Mucus Urine Other Ur Culture Indicated? Urine Glucose 02/03/18 02/03/18 02/03/18 19:00 19:55 19:55 WBC RBC Hgb Hct MCV MCH MCHC RDW Plt Count MPV Immature Gran % Neutrophils % Lymphocytes % Monocytes % Eosinophils % Basophils % Absolute Neutrophils Band Neutrophils Absolute Lymphocytes Absolute Monocytes Absolute Eosinophils Absolute Basophils Differential Comment Atypical Lymphocytes RBC Morphology Polychromasia Macrocytosis PT INR APTT Sample Site pCO2 pO2 O2 Saturation ABG pH ABG HCO3 ABG Total CO2 ABG Base Excess Oxygen Liter Flow FiO2 Sodium 161 H* Potassium 2.9 L* D Chloride 123 H Carbon Dioxide 20.6 L Anion Gap 17.4 H BUN 103 H* Creatinine 3.48 H Estimated GFR/1.73 m2 13.12 Glucose 839 H* D Lactate Calcium 8.4 L Magnesium Total Bilirubin AST ALT Alkaline Phosphatase Ammonia Troponin I NT-Pro-B Natriuret Pep 2212 H Total Protein Albumin Lipase TSH Urine Color Yellow Urine Clarity Sl cloudy Urine pH 5.5 Ur Specific [place] 1.010 Urine Protein Negative Urine Ketones Negative Urine Blood Moderate H Urine Nitrite Positive H Urine Bilirubin Negative Urine Urobilinogen 0.2 Ur Leukocyte Esterase Trace H Urine RBC >50 H Urine WBC 5-10 Ur Epithelial Cells Few Urine Crystals Negative Urine Bacteria Many Urine Casts Negative Urine Mucus Negative Urine Other Negative Ur Culture Indicated? Yes Urine Glucose >=1000 H 02/03/18 02/03/18 19:55 20:47 WBC RBC Hgb Hct MCV MCH MCHC RDW Plt Count MPV Immature Gran % Neutrophils % Lymphocytes % Monocytes % Eosinophils % Basophils % Absolute Neutrophils Band Neutrophils Absolute Lymphocytes Absolute Monocytes Absolute Eosinophils Absolute Basophils Differential Comment Atypical Lymphocytes RBC Morphology Polychromasia Macrocytosis PT INR APTT Sample Site Left radial pCO2 41 pO2 69 L O2 Saturation 90 L ABG pH 7.23 L ABG HCO3 17 L ABG Total CO2 16 L ABG Base Excess Oxygen Liter Flow Bipap FiO2 60 Sodium Potassium Chloride Carbon Dioxide Anion Gap BUN Creatinine Estimated GFR/1.73 m2 Glucose Lactate Calcium Magnesium Total Bilirubin AST ALT Alkaline Phosphatase Ammonia 53 H Troponin I NT-Pro-B Natriuret Pep Total Protein Albumin Lipase TSH Urine Color Urine Clarity Urine pH Ur Specific [place] Urine Protein Urine Ketones Urine Blood Urine Nitrite Urine Bilirubin Urine Urobilinogen Ur Leukocyte Esterase Urine RBC Urine WBC Ur Epithelial Cells Urine Crystals Urine Bacteria Urine Casts Urine Mucus Urine Other Ur Culture Indicated? Urine Glucose Last Vital Signs Temp 36.4 C L 02/03/18 17:40 Pulse 103 H 02/03/18 20:31 Resp 31 H 02/03/18 20:31 BP 94/54 L 02/03/18 20:31 Pulse Ox 95 02/03/18 21:10
[2018-02-03] MEDS: VANCOMYCIN 1,000 MG in Normal Saline 250 ML 250 MG IV (22:12)
[2018-02-03 22:17] LABS: Lactate-non-spesis 6.2 mmol/L (0.6-1.4)
[2018-02-03 22:34] LABS: Anion Gap 16.9 mmol/L (3-11); CO2 19.1 mmol/L (21.0-32.0); CREATININE 3.32 mg/dL (0.55-1.02); Calcium 8.9 mg/dL (8.5-10.1); Chloride 124 mmol/L (98-107); Estimated GFR 13.85 (mL/min/1.73m2); Potassium 3.5 mmol/L (3.5-5.1)
[2018-02-03 22:47] LABS: BUN 103 mg/dL (7-18); Glucose 707 mg/dL (70-100); Sodium 160 mmol/L (136-145)
[2018-02-03 22:51] LABS: Troponin I 0.13 ng/mL (0.00-0.06)
[2018-02-03] MEDS: POTASSIUM CHLORIDE/0.45% NACL 1,000 ML 1000 MEQ IV (23:27)
[2018-02-04] VITALS (111 sets, daily range): BP systolic 83–132; BP diastolic 46–89; PULSE 92–128; RESP 5–41; TEMP 36.1–37.3; O2SAT 85–98
[2018-02-04 00:33] LABS: Anion Gap 16.4 mmol/L (3-11); CO2 20.6 mmol/L (21.0-32.0); CREATININE 3.29 mg/dL (0.55-1.02); Calcium 8.8 mg/dL (8.5-10.1); Chloride 126 mmol/L (98-107); Estimated GFR 13.99 (mL/min/1.73m2); Potassium 3.5 mmol/L (3.5-5.1)
[2018-02-04 00:36] LABS: BUN 99 mg/dL (7-18); Glucose 568 mg/dL (70-100)
[2018-02-04 00:37] LABS: Sodium 163 mmol/L (136-145)
[2018-02-04] MEDS: Hydrocortisone SOD SUC. 100 MG VIAL 50 MG IVP ×5 (00:40→23:34)
[2018-02-04] MEDS: Normal Saline Flush 10 ML SYR IVP ×5 (00:41→23:37)
[2018-02-04 01:15] LABS: Glucose 472 mg/dL (70-100)
[2018-02-04 02:30] LABS: CREATININE 3.03 mg/dL (0.55-1.02); Calcium 8.9 mg/dL (8.5-10.1); Chloride 126 mmol/L (98-107); Estimated GFR 15.39 (mL/min/1.73m2); Glucose 425 mg/dL (70-100); Potassium 4.4 mmol/L (3.5-5.1)
[2018-02-04 02:37] LABS: BUN 95 mg/dL (7-18); Sodium 162 mmol/L (136-145); Troponin I 0.18 ng/mL (0.00-0.06)
[2018-02-04 04:22] LABS: Anion Gap 13.2 mmol/L (3-11); CO2 22.8 mmol/L (21.0-32.0); CREATININE 2.87 mg/dL (0.55-1.02); Calcium 8.5 mg/dL (8.5-10.1); Chloride 125 mmol/L (98-107); Estimated GFR 16.38 (mL/min/1.73m2); Glucose 378 mg/dL (70-100); Potassium 4.2 mmol/L (3.5-5.1)
[2018-02-04 04:24] LABS: BUN 91 mg/dL (7-18); Sodium 161 mmol/L (136-145)
[2018-02-04] MEDS: PIPERACILLIN/TAZO 3.375 GM in Normal Saline 50 ML IVPB ×2 (05:49→18:53)
[2018-02-04] MEDS: POTASSIUM CHLORIDE/0.45% NACL 1,000 ML 250 MEQ IV (05:49)
[2018-02-04 07:45] LABS: Prothrombin Time 19.5 sec (9.3-10.8)
[2018-02-04 09:28] LABS: HCT 37.5 % (36.0-46.0); HGB 11.5 g/dL (12.0-15.5); Mean Corp. HGB Concentration 30.7 g/dL (32.0-36.0); Mean Corpuscular Hemoglobin 32.6 pg (27.0-33.0); Mean Corpuscular Volume 106.2 fL (80-95); Platelet Count 195 x1000/uL (130-400); RBC 3.53 m/cumm (4.00-5.20); RBC Distribution Width 13.7 % (11.7-14.6)
[2018-02-04 09:29] LABS: HCO3 19 mmol/L (22-28); pCO2 42 mmHg (34-47); pH 7.26 (7.35-7.45); pO2 86 mmHg (83-108); sO2 97 % (94-98); tCO2 18 mmol/L (22-29)
[2018-02-04 09:31] LABS: Site Right Radial
[2018-02-04 09:33] LABS: FIO2 60 %
[2018-02-04 09:35] LABS: Lactate-non-spesis 2.6 mmol/L (0.6-1.4)
[2018-02-04 09:53] LABS: Calcium 8.2 mg/dL (8.5-10.1); Glucose 292 mg/dL (70-100)
[2018-02-04 09:55] LABS: Albumin 1.6 g/dL (3.4-5.0); Alkaline Phosphatase 117 U/L (46-116); BUN 86 mg/dL (7-18); Bilirubin, Total 0.2 mg/dL (0.2-1.0); CREATININE 2.61 mg/dL (0.55-1.02); Estimated GFR 18.28 (mL/min/1.73m2); Potassium 4.8 mmol/L (3.5-5.1); Sodium 159 mmol/L (136-145); Total Protein 6.2 g/dL (6.4-8.2)
[2018-02-04 09:56] LABS: ALT 13 U/L (12-78); AST 20 U/L (15-37); Anion Gap 12.4 mmol/L (3-11); CO2 21.6 mmol/L (21.0-32.0); Chloride 125 mmol/L (98-107); Troponin I 0.14 ng/mL (0.00-0.06)
[2018-02-04 09:58] LABS: White Blood Cell Count 26.93 k/cumm (4.4-10.8)
[2018-02-04 09:59] LABS: Absolute Neutrophil Count 18.58 k/cumm (1.2-6.7)
--- NOTE | 2018-02-04 10:02 | NUR.NOTE ---
0950 hrs, 04 Feb 2018; I received a call from [facility] Lab r/t Critical lab results for Kalina; Na 159, BUN 86, CR 2,61, Trop 0.14 WBC 26.93. Temo of Lab notes that the cells are morphining, like a Septic type reaction. I passed this information to Dr Canas and Desmond RN/ICU.Nursing Note:
[2018-02-04 10:04] LABS: Absolute Lymphocyte Count 2.96 k/cumm (1.2-3.4); Absolute Monocyte Count 0.54 k/cumm (0.11-0.7)
[2018-02-04 10:05] LABS: Diff Comment Manual Differential; Nucleated RBC 1 /100WBC
[2018-02-04 10:06] LABS: Hypochromasia 1+; Macrocytosis 1+
--- NOTE | 2018-02-04 10:40 | DI.RAD_ITS ---
SYMPTOM/DIAGNOSIS: R/O CHF, PATIENT IN SEPTIC SHOCK PORTABLE CHEST: Comparison is made with portable chest dated 03 Feb 2018. Multiple lines are again noted over chest. The lungs are not well inflated. There has been interval increase in densities seen at the right lower lobe. The left basilar densities also appear to have increased which could represent an increase in effusion. The pulmonary nodule is visible in the inferior aspect of the right upper lobe. IMPRESSION: Increasing bibasilar densities, infiltrates and/or effusions.
[2018-02-04] MEDS: POTASSIUM CHLORIDE/0.45% NACL 1,000 ML 150 MEQ IV (10:47)
--- NOTE | 2018-02-04 12:03 | PHARADMIT ---
Addendum entered by Wilmer Stinson III 02/11/18 09:59: PATIENT IS UNRESPONSIVE, ON COMFORT MEASURES No VS No Labs Received one dose Morphine 4mg sc @0011 Original Note: Addendum entered by Ashlyn Connolly 02/10/18 10:47: patient has been transitioned to [employer] palliative consult done pt comfortable per nursing Original Note: Addendum entered by Fern Mott 02/09/18 17:12: Pharmacy Note Subjective Objective BP-88/57 HR-103 RR-27 K+3.4(up) Na-147 Cl-111 WBC-20.13(up) Assessment oxacillin (day3) and meropenem (day4) continue 1 time furosemide dose ivp today, IV K+ replacement blood and sputum cultures from yesterday still pending Plan continue to watch VS, labs, culture results, and for med changes possible VILMA and repeat swallow eval once more stable discussion about addressing nutritional needs (PEG tube ?) Original Note: Addendum entered by Fern Mott 02/08/18 15:51: Pharmacy Note Subjective still has a wet congested cough per morning report Objective BP-105/55 HR-100 RR-30 K+2.7(down) Na-150(down) Cl-114(down) SCr-1.53(down) Assessment vanco changed to oxacillin yesterday to cover MSSA (day 2 today) meropenem continues (day 3) hydrocortisone dose decreased to 25 mg q12h IV K+ and mag replacement Plan continue to watch VS and labs and culture results- new blood culture done today discussion about addressing nutritional needs (PEG tube ?) Patient will need VILMA ([facility] ?) and swallow evaluation once more stable Original Note: Addendum entered by Wilmer Stinson III 02/07/18 11:02: Pharmacy Note Subjective Patient is slow recovery from sepsis. BP & K+ are still low, Sodium high. is running D5W to bring sodium down, but with her also on IV steroids FSBS are high Objective Temp:37.6C BP-109/54 K+2.8 Na-153 FSBS-357 SCr-1.70 WBC-=11.39 H&H-10.2/32 Albumin-1.2 Assessment Vancomycin trough at 9PM tonight (day 5) Merpenem for ESBL E.Coli continues. MD to ordered PPi Plan MD is wanting for sepsis to clear before addresing nutritional needs (PEG tube ?) Patient will need VILMA ([facility] ?) and swallow evaluation once able. Watch Vancomycin Original Note: Addendum entered by Wilmer Stinson III 02/06/18 12:38: Pharmacy Note Subjective ESBL E.Coli detected, Zosyn DC'd Meropenem started. HHNK-resolved Objective VS-OK BP-106/53 Temp-38.1C Na-157 Cl- 119 K+2.6 SCr-2.02 WBC-14.66 H&H-OK Plts-133 (dropping), wgt-69.5 kg (up 6.5 kg since admission) No BM Assessment Vasopresin & Levophed was used to maintain BP, dc'd now. Vancomycin for HCAP, Heparin SC for DVT roph. Plan Patient appears to be improving, Watch Lytes, SCr, Vanvco trough Original Note: Addendum entered by Fern Mott 02/05/18 16:56: Pharmacy Note Subjective Objective BP-111/56 HR-93 Tmax-38 Na-158 [id number] BUN-88(up) SCr-2.32(down) WBC-22.15(down) BG-463 Assessment zosyn and vanco continue hydrocortisone dose decreased to 25 mg Q6H 30 mg total insulin glargine ordered this morning, 20 mg insulin glargine ordered BID blood cultures growing gram positive cocci, urine culture grew E.coli and gram negative storm Plan continue to watch VS, labs and for med changes, order vanco trough when needed Original Note: Admission Pharmacy Clinical Review hypovolemic shock, HHNK, pneumonia Code Status Full Code Current Weight 63 kg Renally Cleared and Narrow Therapeutic Index Meds crcl ~16ml/min QTc Value / Action Taken 547. pip/kita listed as CR BP Control, Fever 109/69 afebrile Electrolytes reviewed Na 162, DVT Prophylaxis no, will ask MD Opiate Usage / Scheduled Bowel Regimen Ordered na Plt/SCr for Heparin / Enoxaparin 195/3.03 INR for Warfarin 2.0 H/H stable, WBC/Bands 11.5/37.5 Antibiotic appropriateness vanco, pip/tazo for HAP Cultures and Sensitivities UC prelim dram neg storm, BC pending Surgical ABX d/c within 24 hr na DM control / Insulin Dosing FS 255, on insulin infusion Heart Failure (Check EF%) ([id number]'s, B-Block, Diuretics) IV to PO Switch Home Meds Reviewed Tiotropium prescribing information cautions that concurrent use of any other anticholinergic drugs should be avoided due to the risk for additive/excessive anticholinergic effects.1 valproate-induced augmentation of lorazepam effects. Home Meds Not Ordered quetiapine [Seroquel] 300 tab PO BID 07/04/13 [History Confirmed 02/03/18] sennosides [senna] 1 tab PO QAM 07/04/13 [History Confirmed 02/03/18] tiotropium bromide [Spiriva with HandiHaler] 1 puff INHALATION DAILY divalproex [Depakote ER] 500 mg PO QAM 10/03/16 multivit, iron, min no.8, FA [Therapeutic-M] 1 tab PO DAILY 10/03/16 budesonide-formoterol [Symbicort] 1 inh PO BID 01/16/17 nystatin 2 gm TOPICAL TID #1 jar 01/19/17 [Rx] lorazepam [Ativan] 0.5 mg PO TID #75 tab-cap 04/20/17 citalopram 20 mg PO DAILY 02/03/18 [History Confirmed 02/03/18] ergocalciferol (vitamin D2) [Vitamin D2] 50,000 unit PO DIRECTED 02/03/18 nitrofurantoin monohyd/m-cryst [Macrobid] 100 mg PO BID 02/03/18 valproic acid 250 mg PO HS 02/03/18 [History Confirmed 02/03/18] Comments
--- NOTE | 2018-02-04 12:30 | MERGE_ITS ---
*[facility]* *[facility]* [address] [place] [address] Date of study: 02/04/2018 Transthoracic Echocardiography M-mode, complete 2D, complete spectral Doppler, and color Doppler *STUDY CONCLUSIONS* Summary: 1. Left ventricle: The cavity size was normal. Wall thickness was at the upper limits of normal. Systolic function was normal. The estimated ejection fraction was 60-65%. Wall motion was normal; there were no regional wall motion abnormalities. 2. Right ventricle: The cavity size was dilated. Systolic function was low normal. 3. Ventricular septum: The contour showed systolic flattening. These changes are consistent with RV pressure overload. 4. Pulmonary arteries: Pulmonary systolic pressure was increased, in the range of 50mm Hg to 55mm Hg. 5. Inferior vena cava: The vessel was normal in size. The respirophasic diameter changes were in the normal range (greater than or equal to 50%), consistent with normal central venous pressure. *PATIENT PRESENTATION* Height: 162.6cm ((64in) ) S/D Pressure: 126 / 72 Weight: 62.6kg ((137.7lb) ) BSA: 1.69m^2 Test start time: 12:40 PM. Test stop time: 01:40 PM. PERFORMING Unknown PERFORMING [facility] ORDERING Vickey Staton REFERRING Vickey Staton ASSEMBLY PERSON RT Tato (R)(CT), WAGNER *PROCEDURE DATA* Procedure information: The patient was identified by two identifiers. This study was interpreted by [facility]. Pertinent images and digital data are archived for permanent storage and are available for subsequent review. Comparison was made to the study of 02/16/2014. Study status: Routine. Transthoracic echocardiography. M-mode, complete 2D, complete spectral Doppler, and color Doppler. A Transthoracic Echocardiogram was performed. Scanning was performed from the parasternal, apical, subcostal, and suprasternal notch acoustic windows. Images were obtained using an [id number] cardiac ultrasound machine. Image quality was adequate. Study completion: The patient tolerated the procedure well. There were no complications. History: PMH: Evaluate LV function. Patient with hypovolemic shock. *CARDIAC ANATOMY* Left ventricle: The cavity size was normal. Wall thickness was at the upper limits of normal. Systolic function was normal. The estimated ejection fraction was 60-65%. Wall motion was normal; there were no regional wall motion abnormalities. Findings consistent with diastolic dysfunction. There was no evidence of elevated ventricular filling pressure by Doppler parameters. Aortic valve: Trileaflet; mildly thickened leaflets. Mobility was not restricted. Doppler: Transvalvular velocity was within the normal range. There was no stenosis. There was no significant regurgitation. VTI ratio of LVOT to aortic valve: 0.56. Valve area (VTI): 1.7cm^2. Indexed valve area (VTI): 1cm^2/m^2. Peak velocity ratio of LVOT to aortic valve: 0.59. Valve area (Vmax): 1.8cm^2. Indexed valve area (Vmax): 1.1cm^2/m^2. Mean velocity ratio of LVOT to aortic valve: 0.56. Valve area (Vmean): 1.7cm^2. Indexed valve area (Vmean): 1cm^2/m^2. Mean gradient (S): 6.8mm Hg. Peak gradient (S): 12.2mm Hg. Aorta: Aortic root: The aortic root was normal in size. Ascending aorta: The ascending aorta was normal in size. Mitral valve: Structurally normal valve. Mobility was not restricted. Doppler: Transvalvular velocity was within the normal range. There was no evidence for stenosis. There was no significant regurgitation. Valve area by pressure half-time: 4.1cm^2. Indexed valve area by pressure half-time: 2.4cm^2/m^2. Left atrium: The atrium was normal in size. Right ventricle: The cavity size was dilated. Systolic function was low normal. Ventricular septum: The contour showed systolic flattening. These changes are consistent with RV pressure overload. Pulmonic valve: Poorly visualized. Doppler: Transvalvular velocity was within the normal range. There was no evidence for stenosis. There was no significant regurgitation. Tricuspid valve: Structurally normal valve. Doppler: Transvalvular velocity was within the normal range. There was no evidence for stenosis. There was mild regurgitation. Pulmonary artery: Poorly visualized. Pulmonary systolic pressure was increased, in the range of 50mm Hg to 55mm Hg. Right atrium: The atrium was normal in size. Pericardium: There was no pericardial effusion. Systemic veins: Inferior vena cava: The vessel was normal in size. The respirophasic diameter changes were in the normal range (greater than or equal to 50%), consistent with normal central venous pressure. Measurements Left ventricle Value Reference LV ID, ED, PLAX 4.0 cm 3.5 - 6.0 LV ID, ES, PLAX 2.6 cm 2.1 - 4.0 LV PW thickness, ED, PLAX 1.0 cm LV end-diastolic volume, 1-p A4C 70 ml LV ejection fraction, 1-p A4C 65 % LV e', lateral 0.086 m/sec LV E/e', lateral 8 Ventricular septum Value Reference IVS thickness, ED, PLAX 1.0 cm LVOT Value Reference LVOT ID, A-P 2.0 cm LVOT area 3.1 cm^2 LVOT peak velocity, S 1.03 m/sec LVOT mean velocity, S 0.69 m/sec LVOT VTI, S 14.5 cm LVOT peak gradient, S 4.2 mm Hg LVOT mean gradient, S 2.2 mm Hg Stroke volume (SV), LVOT DP 45 ml Stroke index (SV/bsa), LVOT DP 27 ml/m^2 Aortic valve Value Reference Aortic valve peak velocity, S 1.7 m/sec Aortic valve mean velocity, S 1.23 m/sec Aortic valve VTI, S 26.0 cm Aortic mean gradient, S 6.8 mm Hg Aortic peak gradient, S 12.2 mm Hg VTI ratio, LVOT/AV 0.56 Aortic valve area, VTI 1.7 cm^2 Velocity ratio, peak, LVOT/AV 0.59 Aortic valve area, peak velocity 1.8 cm^2 Velocity ratio, mean, LVOT/AV 0.56 Aortic valve area, mean velocity 1.7 cm^2 Aortic valve area/bsa, mean velocity 1 cm^2/m^2 Aorta Value Reference Aortic root ID, ED 3.0 cm Ascending aorta ID, A-P, S 3.1 cm RVOT Value Reference RVOT VTI, S 15.8 cm Left atrium Value Reference LA ID, A-P, ES 3.6 cm LA ID/bsa, A-P 2.1 cm/m^2 <=2.2 LA area, ES, A4C 12.2 cm^2 8.8 - 23.4 LA area, ES, A2C 12 cm^2 LA volume, ES, 2-p 32 ml LA volume/bsa, ES, 2-p 19 ml/m^2 LA/aortic root ratio 1.22 Mitral valve Value Reference Mitral E-wave peak velocity 0.7 m/sec Mitral A-wave peak velocity 0.92 m/sec Mitral deceleration time 187 ms 150 - 230 Mitral pressure half-time 54 ms Mitral E/A ratio, peak 0.76 Mitral valve area, PHT, DP 4.1 cm^2 Tricuspid valve Value Reference Tricuspid regurg peak velocity 3.5 m/sec Tricuspid peak RV-RA gradient 49.1 mm Hg Right atrium Value Reference RA area, ES, A4C 12.2 cm^2 8.3 - 19.5 Legend: (L) and (H) chayito values outside specified reference range. I have personally reviewed the images and have reviewed and edited the reported findings. Electronically signed by Gavin Keane 02/04/2018 14:59
--- NOTE | 2018-02-04 13:22 | PDOC.CMIN ---
- If Service Date Differs Date of service: 02/04/18 Time of Service: 08:30 Care Management Initial Assess REASON FOR HOSPITALIZATION:: Sepsis, DKA, HCAP, LUIS, elevated troponin, UTI PAST MEDICAL HISTORY/PAST SURGICAL HISTORY:: DM, Dementia, schizophrenia, hypercalcemia. anemia, breast cancer, lung nodules, COPD. PREVIOUS FUNCTIONAL STATUS/SOCIAL/FAMILY SUPPORTS:: Pt resides at [facility] in [place]. Pt previously resided at [place], until she could no longer be managed there. Pt has been a resident of The [facility] since 2016. CM contacted the [facility] and identified pending guardian and current DPOA which is brother Miguelito. His number is [phone]. Kalina can be physcially agressive at times. CURRENT FUNCTIONAL STATUS:: Kalina is not alert at the time of CM visit. She is on bipap when CM enters the room. CM contacted the [facility] and reviewed code status last Advance directive on file is that she is a full code. CM contacted agent Miguelito Perez and he would like his sister to have full treatment including intubation. Miguelito has questions r/t care he states that he will be here this evening to visit the patient. CM did review clinical status and treatment with Brother and he agrees to current plan. He would like to be notified if there are any changes. ADVANCE DIRECTIVES:: On file - son Wilver is not available, Her second agent is Miguelito her brother. Has patient been provided with information about the portal?: No Did the patient sign up for the portal?: No CODE STATUS:: Full Code INSURANCE COVERAGE / FINANCIAL ISSUES:: Medicare, Medicaid CURRENT HOME/COMMUNITY SERVICES/EQUIPMENT:: Tri lives at the [facility] and will return there when she is medically ready. PRIMARY CARE PHYSICIAN:: POTENTIAL DISCHARGE NEEDS:: Transition to the [facility] when medically ready, will need transportation PATIENT/FAMILY EDUCATION NEEDS:: Education, limitations and discharge planning. ANTICIPATED BARRIERS TO DISCHARGE:: None at this time. TRANSPORTATION:: To be determined prior to disposition and coordinated by CM PLAN:: Tri is currently receiving care in the ICU she is not verbal with CM at this time. She is receiving broad spectrim antibiotics and medications to support her blood pressure. She is currently on BIPAP. The [facility] has been updated and advance directives placed in chart. Brother Miguelito is here with her and has been updated by primary nurse and CM. CM to continue to provide support to patient, family and care team ongoing discharge planning and disposition.
--- NOTE | 2018-02-04 14:10 | INITIAL_ITS ---
- If Service Date Differs Date of service: 02/04/18 Time of Service: 08:30 Care Management Initial Assess REASON FOR HOSPITALIZATION:: Sepsis, DKA, HCAP, LUIS, elevated troponin, UTI PAST MEDICAL HISTORY/PAST SURGICAL HISTORY:: DM, Dementia, schizophrenia, hypercalcemia. anemia, breast cancer, lung nodules, COPD. PREVIOUS FUNCTIONAL STATUS/SOCIAL/FAMILY SUPPORTS:: Pt resides at [facility] in [place]. Pt previously resided at [place], until she could no longer be managed there. Pt has been a resident of The [facility] since 2016. CM contacted the [facility] and identified pending guardian and current DPOA which is brother Miguelito. His number is [phone]. Kalina can be physcially agressive at times. CURRENT FUNCTIONAL STATUS:: Kalina is not alert at the time of CM visit. She is on bipap when CM enters the room. CM contacted the [facility] and reviewed code status last Advance directive on file is that she is a full code. CM contacted agent Miguelito Perez and he would like his sister to have full treatment including intubation. Miguelito has questions r/t care he states that he will be here this evening to visit the patient. CM did review clinical status and treatment with Brother and he agrees to current plan. He would like to be notified if there are any changes. ADVANCE DIRECTIVES:: On file - son Wilver is not available, Her second agent is Miguelito her brother. Has patient been provided with information about the portal?: No Did the patient sign up for the portal?: No CODE STATUS:: Full Code INSURANCE COVERAGE / FINANCIAL ISSUES:: Medicare, Medicaid CURRENT HOME/COMMUNITY SERVICES/EQUIPMENT:: Tri lives at the [facility] and will return there when she is medically ready. PRIMARY CARE PHYSICIAN:: POTENTIAL DISCHARGE NEEDS:: Transition to the [facility] when medically ready, will need transportation PATIENT/FAMILY EDUCATION NEEDS:: Education, limitations and discharge planning. ANTICIPATED BARRIERS TO DISCHARGE:: None at this time. TRANSPORTATION:: To be determined prior to disposition and coordinated by CM PLAN:: Tri is currently receiving care in the ICU she is not verbal with CM at this time. She is receiving broad spectrim antibiotics and medications to support her blood pressure. She is currently on BIPAP. The [facility] has been updated and advance directives placed in chart. Brother Miguelito is here with her and has been updated by primary nurse and CM. CM to continue to provide support to patient, family and care team ongoing discharge planning and disposition.
[2018-02-04 15:26] LABS: Lactate-non-spesis 1.6 mmol/L (0.6-1.4)
[2018-02-04] MEDS: Albuterol/Ipratropium 3 ML UPD VIAL UPD ×2 (15:29→23:37)
[2018-02-04 16:18] LABS: Anion Gap 13.3 mmol/L (3-11); CO2 22.7 mmol/L (21.0-32.0); CREATININE 2.39 mg/dL (0.55-1.02); Calcium 8.2 mg/dL (8.5-10.1); Chloride 126 mmol/L (98-107); Estimated GFR 20.23 (mL/min/1.73m2); Glucose 88 mg/dL (70-100); Magnesium 1.8 mg/dL (1.8-2.4); Potassium 4.9 mmol/L (3.5-5.1)
[2018-02-04 16:23] LABS: BUN 84 mg/dL (7-18)
[2018-02-04 16:24] LABS: Sodium 162 mmol/L (136-145)
[2018-02-04] MEDS: Furosemide 20 MG/2 ML VIAL 10 MG IV (16:43)
[2018-02-04] MEDS: DEXTROSE 5%-WATER 1,000 ML 75 ML IV (16:44)
[2018-02-04] MEDS: Enoxaparin 30 MG/0.3 ML SYR SC (16:45)
--- NOTE | 2018-02-04 18:03 | PGE_ITS ---
Date of Service Date of service: 02/04/18 Time of Service: 09:00 Assessment and Plan (1) Septic shock: Current visit: Yes Status: Resolved Required 2 pressors. Blood cultures pending. Urince C&S w/ GNR >100,000 CFU. Continue broad spectrum antibiotics. Monitor lactates, WBC, vitals. (2) Sepsis: Current visit: Yes Status: Acute As above. Continue broad spectrum antibiotics (zosyn, vancomycin, stress dose steroids). Bandemia is rather impressive - and, if continues to worsen, I would consult hem/onc. (3) UTI (urinary tract infection): Current visit: Yes Status: Acute As above. Has a benítez. (4) HCAP (healthcare-associated pneumonia): Current visit: Yes Status: Acute As above. Keep on BiPAP tonight. (5) Diabetic hyperosmolar non-ketotic state: Current visit: Yes Status: Resolved Off of insulin gtt as of the time I am writing this note at 6 pm. Transitioned to sliding scale insulin. A1C of 10 indicates that the patient will likely require insulin on discharge. (6) Elevated troponin I level: Current visit: Yes Status: Acute In setting of LUIS and sepsis, unlikely to be of clinical significance. No further ischemic workup at this time. (7) COPD (chronic obstructive pulmonary disease): Current visit: No Status: Chronic In Acute exacerbation. Continue BiPAP, steroids, nebs, antibiotics (8) Acute kidney injury (nontraumatic): Current visit: Yes Status: Acute with multiple acid-base disorder, due to sepsis, dehydration of HHNK. Baseline creatinine is closer to 1.2. IVF presently on hold as the patient is clinically fluid overloaded. Will monitor serial creatinines and volume status. (9) Toxic metabolic encephalopathy: Current visit: Yes Status: Acute Likely part of sepsis, seems to be improving. Continue to monitor. (10) Dementia: Current visit: No Status: Chronic Resident of retirement at baseline. Will monitor behaviors. (11) Anemia: Current visit: No Status: Chronic Macrocytic. H/H near baseline. Checking B12 levels now would not yield is clinically significant results (inflammatory marker). (12) Breast cancer: Current visit: No Status: Inactive Follow up as outpatient (13) DVT prophylaxis: Current visit: Yes Status: Acute Lovenox (14) Discharge planning issues: Current visit: Yes Status: Acute Guardianship in process of application. Full code. Subjective Interval history since last seen: The patient remains on BiPAP, withdraws from pain/noxious stimuli. She was on both levophed and vasopressin, but was able to be weaned off of both pressors. Nursing notes several wounds (present on admission): R heel pressure wound, R tibial surface, R thigh burn, L coccyx wound. The patient is nonverbal with us. Exam Narrative Exam Narrative: General: Middle aged female, appears older than her stated age, laying in bed, on BiPAP, not following commands, withdraws from pain ; tracking HEENT: Tracking, EOMI; dry yellow crust in Bilateral eyes Heart: RRR, no m/r/g, tachycardic Lungs: Ronchi and rales B GI: abdomen soft, nontender, nondistended Extremities: trace edema B feet, +1 pedal pulses B, feet warm, pale, no clubbing /cyanosis. Long toenails. R heel pressure wound. R thigh wound (?ca), R tibial surface excoriations. Objective Objective Clinical Data: Abnormal lab results 02/03/18 02/03/18 02/03/18 Range/Units 18:00 18:00 18:00 WBC 20.84 H (4.4-10.8) k/cumm RBC (4.00-5.20) m/cumm Hgb (12.0-15.5) g/dL MCV 106.5 H (80-95) fL MCHC 31.0 L (32.0-36.0) g/dL MPV 13.0 H (8.0-11.0) fL Absolute Neutrophils 16.46 H (1.2-6.7) k/cumm Absolute Lymphocytes 3.96 H (1.2-3.4) k/cumm PT (9.3-10.8) sec pO2 (83-108) mmHg O2 Saturation (94-98) % ABG pH (7.35-7.45) ABG HCO3 (22-28) mmol/L ABG Total CO2 (22-29) mmol/L ABG Base Excess (-3-3) mmol/L Sodium 156 H* (136-145) mmol/L Potassium (3.5-5.1) mmol/L Chloride 113 H (98-107) mmol/L Carbon Dioxide (21.0-32.0) mmol/L Anion Gap 17.2 H (3-11) mmol/L BUN 115 H* (7-18) mg/dL Creatinine 3.97 H* (0.55-1.02) mg/dL Glucose 1220 H* (70-100) mg/dL Hemoglobin A1c (4.5-6.2) % Lactate 5.7 H (0.6-1.4) mmol/L Calcium 10.2 H (8.5-10.1) mg/dL Magnesium 3.0 H (1.8-2.4) mg/dL AST 10 L (15-37) U/L Alkaline Phosphatase 201 H (46-116) U/L Ammonia (11-32) umol/L Troponin I 0.13 H (0.00-0.06) ng/mL NT-Pro-B Natriuret Pep ( - 299) pg/mL Total Protein (6.4-8.2) g/dL Albumin 2.4 L (3.4-5.0) g/dL Urine Blood (Negative) Urine Nitrite (Negative) Ur Leukocyte Esterase (Negative) Urine RBC (0-2) Urine Glucose (Negative) mg/dL Total Valproic Acid (50-100) ug/mL 02/03/18 02/03/18 02/03/18 Range/Units 18:00 18:00 19:00 WBC (4.4-10.8) k/cumm RBC (4.00-5.20) m/cumm Hgb (12.0-15.5) g/dL MCV (80-95) fL MCHC (32.0-36.0) g/dL MPV (8.0-11.0) fL Absolute Neutrophils (1.2-6.7) k/cumm Absolute Lymphocytes (1.2-3.4) k/cumm PT 18.7 H (9.3-10.8) sec pO2 61 L (83-108) mmHg O2 Saturation 88 L (94-98) % ABG pH 7.29 L (7.35-7.45) ABG HCO3 (22-28) mmol/L ABG Total CO2 (22-29) mmol/L ABG Base Excess -4.0 L (-3-3) mmol/L Sodium (136-145) mmol/L Potassium (3.5-5.1) mmol/L Chloride (98-107) mmol/L Carbon Dioxide (21.0-32.0) mmol/L Anion Gap (3-11) mmol/L BUN (7-18) mg/dL Creatinine (0.55-1.02) mg/dL Glucose (70-100) mg/dL Hemoglobin A1c (4.5-6.2) % Lactate (0.6-1.4) mmol/L Calcium (8.5-10.1) mg/dL Magnesium (1.8-2.4) mg/dL AST (15-37) U/L Alkaline Phosphatase (46-116) U/L Ammonia (11-32) umol/L Troponin I (0.00-0.06) ng/mL NT-Pro-B Natriuret Pep ( - 299) pg/mL Total Protein (6.4-8.2) g/dL Albumin (3.4-5.0) g/dL Urine Blood Moderate H (Negative) Urine Nitrite Positive H (Negative) Ur Leukocyte Esterase Trace H (Negative) Urine RBC >50 H (0-2) Urine Glucose >=1000 H (Negative) mg/dL Total Valproic Acid (50-100) ug/mL 02/03/18 02/03/18 02/03/18 Range/Units 19:55 19:55 19:55 WBC (4.4-10.8) k/cumm RBC (4.00-5.20) m/cumm Hgb (12.0-15.5) g/dL MCV (80-95) fL MCHC (32.0-36.0) g/dL MPV (8.0-11.0) fL Absolute Neutrophils (1.2-6.7) k/cumm Absolute Lymphocytes (1.2-3.4) k/cumm PT (9.3-10.8) sec pO2 (83-108) mmHg O2 Saturation (94-98) % ABG pH (7.35-7.45) ABG HCO3 (22-28) mmol/L ABG Total CO2 (22-29) mmol/L ABG Base Excess (-3-3) mmol/L Sodium 161 H* (136-145) mmol/L Potassium 2.9 L* D (3.5-5.1) mmol/L Chloride 123 H (98-107) mmol/L Carbon Dioxide 20.6 L (21.0-32.0) mmol/L Anion Gap 17.4 H (3-11) mmol/L BUN 103 H* (7-18) mg/dL Creatinine 3.48 H (0.55-1.02) mg/dL Glucose 839 H* D (70-100) mg/dL Hemoglobin A1c (4.5-6.2) % Lactate (0.6-1.4) mmol/L Calcium 8.4 L (8.5-10.1) mg/dL Magnesium (1.8-2.4) mg/dL AST (15-37) U/L Alkaline Phosphatase (46-116) U/L Ammonia 53 H (11-32) umol/L Troponin I (0.00-0.06) ng/mL NT-Pro-B Natriuret Pep 2212 H ( - 299) pg/mL Total Protein (6.4-8.2) g/dL Albumin (3.4-5.0) g/dL Urine Blood (Negative) Urine Nitrite (Negative) Ur Leukocyte Esterase (Negative) Urine RBC (0-2) Urine Glucose (Negative) mg/dL Total Valproic Acid (50-100) ug/mL 02/03/18 02/03/18 02/03/18 Range/Units 20:47 21:55 22:00 WBC (4.4-10.8) k/cumm RBC (4.00-5.20) m/cumm Hgb (12.0-15.5) g/dL MCV (80-95) fL MCHC (32.0-36.0) g/dL MPV (8.0-11.0) fL Absolute Neutrophils (1.2-6.7) k/cumm Absolute Lymphocytes (1.2-3.4) k/cumm PT (9.3-10.8) sec pO2 69 L (83-108) mmHg O2 Saturation 90 L (94-98) % ABG pH 7.23 L (7.35-7.45) ABG HCO3 17 L (22-28) mmol/L ABG Total CO2 16 L (22-29) mmol/L ABG Base Excess (-3-3) mmol/L Sodium 160 H* (136-145) mmol/L Potassium (3.5-5.1) mmol/L Chloride 124 H (98-107) mmol/L Carbon Dioxide 19.1 L (21.0-32.0) mmol/L Anion Gap 16.9 H (3-11) mmol/L BUN 103 H* (7-18) mg/dL Creatinine 3.32 H (0.55-1.02) mg/dL Glucose 707 H* (70-100) mg/dL Hemoglobin A1c (4.5-6.2) % Lactate 6.2 H (0.6-1.4) mmol/L Calcium (8.5-10.1) mg/dL Magnesium (1.8-2.4) mg/dL AST (15-37) U/L Alkaline Phosphatase (46-116) U/L Ammonia (11-32) umol/L Troponin I 0.13 H (0.00-0.06) ng/mL NT-Pro-B Natriuret Pep ( - 299) pg/mL Total Protein (6.4-8.2) g/dL Albumin (3.4-5.0) g/dL Urine Blood (Negative) Urine Nitrite (Negative) Ur Leukocyte Esterase (Negative) Urine RBC (0-2) Urine Glucose (Negative) mg/dL Total Valproic Acid (50-100) ug/mL 02/04/18 02/04/18 02/04/18 Range/Units 00:10 01:02 02:00 WBC (4.4-10.8) k/cumm RBC (4.00-5.20) m/cumm Hgb (12.0-15.5) g/dL MCV (80-95) fL MCHC (32.0-36.0) g/dL MPV (8.0-11.0) fL Absolute Neutrophils (1.2-6.7) k/cumm Absolute Lymphocytes (1.2-3.4) k/cumm PT (9.3-10.8) sec pO2 (83-108) mmHg O2 Saturation (94-98) % ABG pH (7.35-7.45) ABG HCO3 (22-28) mmol/L ABG Total CO2 (22-29) mmol/L ABG Base Excess (-3-3) mmol/L Sodium 163 H* (136-145) mmol/L Potassium (3.5-5.1) mmol/L Chloride 126 H (98-107) mmol/L Carbon Dioxide 20.6 L (21.0-32.0) mmol/L Anion Gap 16.4 H (3-11) mmol/L BUN 99 H* (7-18) mg/dL Creatinine 3.29 H (0.55-1.02) mg/dL Glucose 568 H* 472 H (70-100) mg/dL Hemoglobin A1c (4.5-6.2) % Lactate (0.6-1.4) mmol/L Calcium (8.5-10.1) mg/dL Magnesium (1.8-2.4) mg/dL AST (15-37) U/L Alkaline Phosphatase (46-116) U/L Ammonia (11-32) umol/L Troponin I 0.18 H (0.00-0.06) ng/mL NT-Pro-B Natriuret Pep ( - 299) pg/mL Total Protein (6.4-8.2) g/dL Albumin (3.4-5.0) g/dL Urine Blood (Negative) Urine Nitrite (Negative) Ur Leukocyte Esterase (Negative) Urine RBC (0-2) Urine Glucose (Negative) mg/dL Total Valproic Acid (50-100) ug/mL 02/04/18 02/04/18 02/04/18 Range/Units 02:00 04:05 06:23 WBC (4.4-10.8) k/cumm RBC (4.00-5.20) m/cumm Hgb (12.0-15.5) g/dL MCV (80-95) fL MCHC (32.0-36.0) g/dL MPV (8.0-11.0) fL Absolute Neutrophils (1.2-6.7) k/cumm Absolute Lymphocytes (1.2-3.4) k/cumm PT 19.5 H (9.3-10.8) sec pO2 (83-108) mmHg O2 Saturation (94-98) % ABG pH (7.35-7.45) ABG HCO3 (22-28) mmol/L ABG Total CO2 (22-29) mmol/L ABG Base Excess (-3-3) mmol/L Sodium 162 H* 161 H* (136-145) mmol/L Potassium (3.5-5.1) mmol/L Chloride 126 H 125 H (98-107) mmol/L Carbon Dioxide (21.0-32.0) mmol/L Anion Gap 15.0 H 13.2 H (3-11) mmol/L BUN 95 H* 91 H* (7-18) mg/dL Creatinine 3.03 H 2.87 H (0.55-1.02) mg/dL Glucose 425 H 378 H (70-100) mg/dL Hemoglobin A1c (4.5-6.2) % Lactate (0.6-1.4) mmol/L Calcium (8.5-10.1) mg/dL Magnesium (1.8-2.4) mg/dL AST (15-37) U/L Alkaline Phosphatase (46-116) U/L Ammonia (11-32) umol/L Troponin I (0.00-0.06) ng/mL NT-Pro-B Natriuret Pep ( - 299) pg/mL Total Protein (6.4-8.2) g/dL Albumin (3.4-5.0) g/dL Urine Blood (Negative) Urine Nitrite (Negative) Ur Leukocyte Esterase (Negative) Urine RBC (0-2) Urine Glucose (Negative) mg/dL Total Valproic Acid (50-100) ug/mL 02/04/18 02/04/18 02/04/18 Range/Units 09:10 09:10 09:10 WBC 26.93 H* (4.4-10.8) k/cumm RBC 3.53 L (4.00-5.20) m/cumm Hgb 11.5 L D (12.0-15.5) g/dL MCV 106.2 H (80-95) fL MCHC 30.7 L (32.0-36.0) g/dL MPV 13.0 H (8.0-11.0) fL Absolute Neutrophils 18.58 H (1.2-6.7) k/cumm Absolute Lymphocytes (1.2-3.4) k/cumm PT (9.3-10.8) sec pO2 (83-108) mmHg O2 Saturation (94-98) % ABG pH (7.35-7.45) ABG HCO3 (22-28) mmol/L ABG Total CO2 (22-29) mmol/L ABG Base Excess (-3-3) mmol/L Sodium 159 H* (136-145) mmol/L Potassium (3.5-5.1) mmol/L Chloride 125 H (98-107) mmol/L Carbon Dioxide (21.0-32.0) mmol/L Anion Gap 12.4 H (3-11) mmol/L BUN 86 H* (7-18) mg/dL Creatinine 2.61 H (0.55-1.02) mg/dL Glucose 292 H (70-100) mg/dL Hemoglobin A1c 10.0 H (4.5-6.2) % Lactate (0.6-1.4) mmol/L Calcium 8.2 L (8.5-10.1) mg/dL Magnesium (1.8-2.4) mg/dL AST (15-37) U/L Alkaline Phosphatase 117 H (46-116) U/L Ammonia (11-32) umol/L Troponin I 0.14 H (0.00-0.06) ng/mL NT-Pro-B Natriuret Pep ( - 299) pg/mL Total Protein 6.2 L (6.4-8.2) g/dL Albumin 1.6 L (3.4-5.0) g/dL Urine Blood (Negative) Urine Nitrite (Negative) Ur Leukocyte Esterase (Negative) Urine RBC (0-2) Urine Glucose (Negative) mg/dL Total Valproic Acid (50-100) ug/mL 02/04/18 02/04/18 02/04/18 Range/Units 09:10 09:15 09:31 WBC (4.4-10.8) k/cumm RBC (4.00-5.20) m/cumm Hgb (12.0-15.5) g/dL MCV (80-95) fL MCHC (32.0-36.0) g/dL MPV (8.0-11.0) fL Absolute Neutrophils (1.2-6.7) k/cumm Absolute Lymphocytes (1.2-3.4) k/cumm PT (9.3-10.8) sec pO2 (83-108) mmHg O2 Saturation (94-98) % ABG pH 7.26 L (7.35-7.45) ABG HCO3 19 L (22-28) mmol/L ABG Total CO2 18 L (22-29) mmol/L ABG Base Excess (-3-3) mmol/L Sodium (136-145) mmol/L Potassium (3.5-5.1) mmol/L Chloride (98-107) mmol/L Carbon Dioxide (21.0-32.0) mmol/L Anion Gap (3-11) mmol/L BUN (7-18) mg/dL Creatinine (0.55-1.02) mg/dL Glucose (70-100) mg/dL Hemoglobin A1c (4.5-6.2) % Lactate 2.6 H (0.6-1.4) mmol/L Calcium (8.5-10.1) mg/dL Magnesium (1.8-2.4) mg/dL AST (15-37) U/L Alkaline Phosphatase (46-116) U/L Ammonia (11-32) umol/L Troponin I (0.00-0.06) ng/mL NT-Pro-B Natriuret Pep ( - 299) pg/mL Total Protein (6.4-8.2) g/dL Albumin (3.4-5.0) g/dL Urine Blood (Negative) Urine Nitrite (Negative) Ur Leukocyte Esterase (Negative) Urine RBC (0-2) Urine Glucose (Negative) mg/dL Total Valproic Acid 12.0 L (50-100) ug/mL 02/04/18 02/04/18 Range/Units 15:20 15:20 WBC (4.4-10.8) k/cumm RBC (4.00-5.20) m/cumm Hgb (12.0-15.5) g/dL MCV (80-95) fL MCHC (32.0-36.0) g/dL MPV (8.0-11.0) fL Absolute Neutrophils (1.2-6.7) k/cumm Absolute Lymphocytes (1.2-3.4) k/cumm PT (9.3-10.8) sec pO2 (83-108) mmHg O2 Saturation (94-98) % ABG pH (7.35-7.45) ABG HCO3 (22-28) mmol/L ABG Total CO2 (22-29) mmol/L ABG Base Excess (-3-3) mmol/L Sodium 162 H* (136-145) mmol/L Potassium (3.5-5.1) mmol/L Chloride 126 H (98-107) mmol/L Carbon Dioxide (21.0-32.0) mmol/L Anion Gap 13.3 H (3-11) mmol/L BUN 84 H* (7-18) mg/dL Creatinine 2.39 H (0.55-1.02) mg/dL Glucose (70-100) mg/dL Hemoglobin A1c (4.5-6.2) % Lactate 1.6 H (0.6-1.4) mmol/L Calcium 8.2 L (8.5-10.1) mg/dL Magnesium (1.8-2.4) mg/dL AST (15-37) U/L Alkaline Phosphatase (46-116) U/L Ammonia (11-32) umol/L Troponin I (0.00-0.06) ng/mL NT-Pro-B Natriuret Pep ( - 299) pg/mL Total Protein (6.4-8.2) g/dL Albumin (3.4-5.0) g/dL Urine Blood (Negative) Urine Nitrite (Negative) Ur Leukocyte Esterase (Negative) Urine RBC (0-2) Urine Glucose (Negative) mg/dL Total Valproic Acid (50-100) ug/mL Vital Signs Temperature 37.2 C 02/04/18 12:47 Temperature Source Temporal Artery Scan 02/04/18 12:47 Pulse 120 H 02/04/18 17:00 Pulse 119 H 02/04/18 17:00 Respiratory Rate 27 H 02/04/18 17:00 Respiratory Effort 02/04/18 12:47 Respiratory Depth Normal 02/04/18 12:47 Respiratory Pattern Tachypnea 02/04/18 12:47 Blood Pressure 116/67 02/04/18 17:00 Blood Pressure Mean 77 02/04/18 17:00 Blood Pressure Position Left Lateral 02/04/18 12:47 Pulse Oximetry 95 02/04/18 17:00 Oxygen Delivery Method Bi-pap 02/04/18 15:29 Oxygen Flow Rate 10 02/03/18 21:30 Fraction of Inspired Oxygen (FIO2) 70 02/04/18 15:35 Pain Level 0 02/04/18 00:00 Intake & Output 02/03/18 02/04/18 02/04/18 23:59 11:59 23:59 Intake Total 4178.205 / 4178.205 1247.997 / 1247.997 385.560 / 385.560 Output Total 435 / 435 375 / 375 Balance 4178.205 / 4178.205 812.997 / 812.997 10.560 / 10.560 Weight 63 kg 63 kg Intake: IV 4178.205 / 4178.205 1247.997 / 1247.997 385.560 / 385.560 Oral 0 / 0 Output: Urine 435 / 435 375 / 375 Other: Urine Color Pale Yellow Yellow Yellow Urine Appearance Cloudy Clear Clear Sediment Comment h/o breast cancer with left sided mastectomy Benítez intact and draining clear concentrated yellow urine with sediment. Benítez intact and draining clear concentrated yellow urine with sediment. Laboratory Results WBC 26.93 k/cumm (4.4-10.8) H* 02/04/18 09:10 RBC 3.53 m/cumm (4.00-5.20) L 02/04/18 09:10 Hgb 11.5 g/dL (12.0-15.5) L D 02/04/18 09:10 Hct 37.5 % (36.0-46.0) 02/04/18 09:10 MCV 106.2 fL (80-95) H 02/04/18 09:10 MCH 32.6 pg (27.0-33.0) 02/04/18 09:10 MCHC 30.7 g/dL (32.0-36.0) L 02/04/18 09:10 RDW 13.7 % (11.7-14.6) 02/04/18 09:10 Plt Count 195 x1000/uL (130-400) 02/04/18 09:10 MPV 13.0 fL (8.0-11.0) H 02/04/18 09:10 Immature Gran % See Differential 02/04/18 09:10 Neutrophils % 3.0 02/04/18 09:10 Lymphocytes % 11.0 02/04/18 09:10 Monocytes % 2.0 02/04/18 09:10 Eosinophils % 0.0 02/04/18 09:10 Basophils % 0.0 02/04/18 09:10 Absolute Neutrophils 18.58 k/cumm (1.2-6.7) H 02/04/18 09:10 Band Neutrophils 66.0 % 02/04/18 09:10 Absolute Lymphocytes 2.96 k/cumm (1.2-3.4) 02/04/18 09:10 Absolute Monocytes 0.54 k/cumm (0.11-0.7) 02/04/18 09:10 Absolute Eosinophils 0.00 k/cumm (0.0-0.7) 02/04/18 09:10 Absolute Basophils 0.00 k/cumm (0.0-0.2) 02/04/18 09:10 Metamyelocytes 14.0 % 02/04/18 09:10 Myelocytes 4.0 % 02/04/18 09:10 Nucleated RBCs 1 /100WBC 02/04/18 09:10 Differential Comment Manual differential 02/04/18 09:10 Atypical Lymphocytes 0 02/03/18 18:00 RBC Morphology See below 02/04/18 09:10 Polychromasia Present 02/03/18 18:00 Hypochromasia 1+ 02/04/18 09:10 Macrocytosis 1+ 02/04/18 09:10 PT 19.5 sec (9.3-10.8) H 02/04/18 06:23 INR 2.0 (1.0-3.5) 02/04/18 06:23 APTT 26.1 sec (21.0-31.4) 02/03/18 18:00 Sample Site Right radial 02/04/18 09:31 pCO2 42 mmHg (34-47) 02/04/18 09:31 pO2 86 mmHg (83-108) 02/04/18 09:31 O2 Saturation 97 % (94-98) 02/04/18 09:31 ABG pH 7.26 (7.35-7.45) L 02/04/18 09:31 ABG HCO3 19 mmol/L (22-28) L 02/04/18 09:31 ABG Total CO2 18 mmol/L (22-29) L 02/04/18 09:31 ABG Base Excess mmol/L (-3-3) 02/04/18 09:31 Oxygen Liter Flow Bipap L 02/03/18 20:47 FiO2 60 % 02/04/18 09:31 Sodium 162 mmol/L (136-145) H* 02/04/18 15:20 Potassium 4.9 mmol/L (3.5-5.1) 02/04/18 15:20 Chloride 126 mmol/L (98-107) H 02/04/18 15:20 Carbon Dioxide 22.7 mmol/L (21.0-32.0) 02/04/18 15:20 Anion Gap 13.3 mmol/L (3-11) H 02/04/18 15:20 BUN 84 mg/dL (7-18) H* 02/04/18 15:20 Creatinine 2.39 mg/dL (0.55-1.02) H 02/04/18 15:20 Estimated GFR/1.73 m2 20.23 (mL/min/1.73m2) 02/04/18 15:20 Glucose 88 mg/dL (70-100) D 02/04/18 15:20 Hemoglobin A1c 10.0 % (4.5-6.2) H 02/04/18 09:10 Lactate 1.6 mmol/L (0.6-1.4) H 02/04/18 15:20 Calcium 8.2 mg/dL (8.5-10.1) L 02/04/18 15:20 Magnesium 1.8 mg/dL (1.8-2.4) 02/04/18 15:20 Total Bilirubin 0.2 mg/dL (0.2-1.0) 02/04/18 09:10 AST 20 U/L (15-37) 02/04/18 09:10 ALT 13 U/L (12-78) 02/04/18 09:10 Alkaline Phosphatase 117 U/L (46-116) H 02/04/18 09:10 Ammonia 53 umol/L (11-32) H 02/03/18 19:55 Troponin I 0.14 ng/mL (0.00-0.06) H 02/04/18 09:10 NT-Pro-B Natriuret Pep 2212 pg/mL (-299) H 02/03/18 19:55 Total Protein 6.2 g/dL (6.4-8.2) L 02/04/18 09:10 Albumin 1.6 g/dL (3.4-5.0) L 02/04/18 09:10 Lipase 98 U/L (73-393) 02/03/18 18:00 TSH 0.54 uIU/mL (0.358-3.74) 02/03/18 18:00 Urine Color Yellow (Yellow) 02/03/18 19:00 Urine Clarity Sl cloudy 02/03/18 19:00 Urine pH 5.5 (5-8) 02/03/18 19:00 Ur Specific [place] 1.010 (1.005-1.025) 02/03/18 19:00 Urine Protein Negative mg/dL (Negative) 02/03/18 19:00 Urine Ketones Negative mg/dL (Negative) 02/03/18 19:00 Urine Blood Moderate (Negative) H 02/03/18 19:00 Urine Nitrite Positive (Negative) H 02/03/18 19:00 Urine Bilirubin Negative (Negative) 02/03/18 19:00 Urine Urobilinogen 0.2 EU/dL (Up TO 0.2) 02/03/18 19:00 Ur Leukocyte Esterase Trace (Negative) H 02/03/18 19:00 Urine RBC >50 (0-2) H 02/03/18 19:00 Urine WBC 5-10 HPF (0-5) 02/03/18 19:00 Ur Epithelial Cells Few HPF (Negative) 02/03/18 19:00 Urine Crystals Negative HPF (Negative) 02/03/18 19:00 Urine Bacteria Many HPF (Negative) 02/03/18 19:00 Urine Casts Negative LPF (Negative) 02/03/18 19:00 Urine Mucus Negative (Negative) 02/03/18 19:00 Urine Other Negative (Negative) 02/03/18 19:00 Ur Culture Indicated? Yes 02/03/18 19:00 Urine Glucose >=1000 mg/dL (Negative) H 02/03/18 19:00 Total Valproic Acid 12.0 ug/mL (50-100) L 02/04/18 09:10 Echo 18: 1. Left ventricle: The cavity size was normal. Wall thickness was at the upper limits of normal. Systolic function was normal. The estimated ejection fraction was 60-65%. Wall motion was normal; there were no regional wall motion abnormalities. 2. Right ventricle: The cavity size was dilated. Systolic function was low normal. 3. Ventricular septum: The contour showed systolic flattening. These changes are consistent with RV pressure overload. 4. Pulmonary arteries: Pulmonary systolic pressure was increased, in the range of 50mm Hg to 55mm Hg. 5. Inferior vena cava: The vessel was normal in size. The respirophasic diameter changes were in the normal range (greater than or equal to 50%), consistent with normal central venous pressure. CXR: IMPRESSION: Increasing bibasilar densities, infiltrates and/or effusions. urine C&S 02/03/18: GNR >100,000 CFU
[2018-02-04] MEDS: Insulin Aspart 300 UNITS/3 ML PEN SC (18:26)
--- NOTE | 2018-02-04 19:37 | NUR.NOTE ---
At approximately 0900 this morning this nurse noted a crusty area around left nare. Upon closer examination a nasal trumpet was noted in left nare beyond/imbedded the opening of the nare. Nasal trumpet was removed with with a pair of tweezers by this nurse. The nasal trumped was slightly imbedded in the left nare, it was discolored, and had old dried blood mixed with dried nasal secretions on the nasopharnyx end. It was noted the patient's oxygenation was higher after removal of nasal trumpet. This nurse, Margarette from respiratory therapy, and Kristi ANDREWS were in the room at the time of removal of nasal trumpet.
[2018-02-04] MEDS: VANCOMYCIN 500 MG in Normal Saline 100 ML 100 MG IVPB (23:38)
[2018-02-05] VITALS (101 sets, daily range): BP systolic 70–150; BP diastolic 37–86; PULSE 85–121; RESP 5–37; TEMP 33–38; O2SAT 87–100
[2018-02-05] MEDS: Insulin Aspart 300 UNITS/3 ML PEN SC ×4 (02:19→18:15)
[2018-02-05] MEDS: PIPERACILLIN/TAZO 3.375 GM in Normal Saline 50 ML IVPB ×2 (06:25→18:09)
[2018-02-05] MEDS: Normal Saline Flush 10 ML SYR IVP ×3 (06:27→12:16)
[2018-02-05] MEDS: Hydrocortisone SOD SUC. 100 MG VIAL 50 MG IVP (06:27)
[2018-02-05] MEDS: DEXTROSE 5%-WATER 1,000 ML 75 ML IV ×2 (06:28→20:38)
[2018-02-05 07:16] LABS: Abs Immature Grans 0.68 k/cumm (0.0-0.09); HCT 35.1 % (36.0-46.0); HGB 10.9 g/dL (12.0-15.5); Mean Corp. HGB Concentration 31.1 g/dL (32.0-36.0); Mean Corpuscular Hemoglobin 32.2 pg (27.0-33.0); Mean Corpuscular Volume 103.5 fL (80-95); Mean Platelet Volume 13.6 fL (8.0-11.0); Platelet Count 148 x1000/uL (130-400); RBC 3.39 m/cumm (4.00-5.20); RBC Distribution Width 13.7 % (11.7-14.6); White Blood Cell Count 22.15 k/cumm (4.4-10.8)
[2018-02-05 07:22] LABS: Lactate-non-spesis 1.9 mmol/L (0.6-1.4)
[2018-02-05 07:51] LABS: Absolute Neutrophil Count 18.61 k/cumm (1.2-6.7)
[2018-02-05 07:52] LABS: Absolute Lymphocyte Count 2.22 k/cumm (1.2-3.4); Absolute Monocyte Count 0.44 k/cumm (0.11-0.7); Diff Comment Manual Differential; Macrocytosis 1+
[2018-02-05 08:05] LABS: Anion Gap 12.8 mmol/L (3-11); CO2 21.2 mmol/L (21.0-32.0); CREATININE 2.32 mg/dL (0.55-1.02); Calcium 8.7 mg/dL (8.5-10.1); Chloride 124 mmol/L (98-107); Estimated GFR 20.94 (mL/min/1.73m2); Glucose 463 mg/dL (70-100); Magnesium 1.9 mg/dL (1.8-2.4); Potassium 4.2 mmol/L (3.5-5.1)
[2018-02-05 08:16] LABS: BUN 88 mg/dL (7-18); Sodium 158 mmol/L (136-145)
[2018-02-05] MEDS: Albuterol/Ipratropium 3 ML UPD VIAL UPD (08:46)
[2018-02-05] MEDS: Furosemide 20 MG/2 ML VIAL IVP ×2 (09:27→15:59)
[2018-02-05] MEDS: Nystatin POWDER 60 GM JAR TP ×3 (09:28→20:52)
[2018-02-05] MEDS: Moxifloxacin 0.5% 3 ML BTL OU ×3 (09:28→20:50)
[2018-02-05] MEDS: Insulin Glargine 300 UNITS/3 ML PEN 10 UNITS SC (09:53)
[2018-02-05 10:06] LABS: Absolute Neutrophil Count 16.88 k/cumm (1.2-6.7)
--- NOTE | 2018-02-05 10:45 | PT.INIE ---
Date of service: 02/05/18 Time of Service: 10:45 PT Notes Inpatient Physical Therapy Evaluation Date: 02/05/2018 Referring Doctor: Oralia Canas PT Orders: PT CONSULT: Eval/treat Precautions: Fall precautions Patient Profile/Admitting Diagnosis: Patient is a 67-year-old female admitted with sepsis, pneumonia, urinary tract infection, acute kidney injury PMHX: Schizophrenia, Alzheimer dementia, chronic obstructive pulmonary disease, asthma, osteopenia, diabetes mellitus, breast cancer status post left mastectomy, hyperlipidemia, bilateral ankle fracture Social History/Home Situation: Resident of the [facility], baseline mobility stand pivot transfers to wheelchair, non-ambulatory, total assist ADLs. Equipment Owned/DME: Wheelchair at the [facility] Subjective: Patient lying in bed eyes closed, does not respond to verbal or tactile stimulus, does not follow commands for squeezing hand, lifting extremities or any cues provided by therapist to engage. Opens eyes intermittently. Objective: General Observation: 15 L high flow nasal cannula on AIRVO 2 machine 47% O2, 35 L/min settings, telemetry, right upper extremity IV, De León catheter, MIKE hose, heel protectors, SCDs, BP and O2 monitors Mental Status: A and O x0, nonverbal unable to answer questions or engage in conversation Pain: No signs of pain noticed no grimacing, withdrawing or avoiding movement Vital Signs: See nursing notes ROM: Right Upper Extremity: PROM right shoulder 50 degrees flexion resist further movement, right elbow -10 degrees extension, right wrist mid range only resisting movement Left Upper Extremity: PROM left shoulder 50 degrees of flexion resisting further movement, elbow WNL, left wrist mid range resisting movement Right Lower Extremity: PROM right hip flexion 40 degrees, abduction 20 degrees, knee flexion 60 degrees, ankle -10 degrees dorsiflexion Left Lower Extremity: PROM left hip flexion 50 degrees, abduction 15 degrees, knee flexion 60 degrees, ankle -10 degrees dorsiflexion Strength: Patient unable to follow manual muscle testing, observed actively reaching hands to face throughout session. Slight active motor control noted in head and neck with sitting position, patient able to hold head unsupported for 20 seconds before going into cervical flexion, this appears to be due more to decrease alertness than weakness. Able to main sitting balance unsupported for 10 seconds before requiring assist, unclear if primarily due to fatigue or decreased alertness rather than weakness. Bed Mobility/Transfers: Supine to sit: HOB 35 degrees, max assist x2 Sat at edge of bed for 10 minutes focusing on sitting trunk control, patient requiring max assist initially to maintain sitting balance. Weight shifting activity performed by therapist forward and backward positioning, patient able to engage in active sitting to CGA level. Patient able to sit unsupported for 10 seconds. Patient not actively engaging with sitting balance activities or therapy intervention, primarily keeping eyes closed. O2 sats 93-96% on 15 L high flow nasal cannula, heart rate 112-121 bpm Sit to stand: Unable Bed to chair: Unable. Patient would be a dependent Shavon lift to chair at this time. Sit to supine: HOB 20 degrees max assist x2 for trunk and lower extremities to supine position. Max assist for rolling and positioning in bed. Gait: Unable. due to weakness, decreased alertness, decreased participation in therapy session. Patient is non-ambulatory at baseline performing assisted stand pivot transfers to wheelchair only at the [facility]. Balance: Static Sitting: Poor Dynamic Sitting: Poor Static Standing: Not tested Dynamic Standing: Not tested Special Tests: Mobility Limitations Standardized Measure [facility] 6 clicks Basic Mobility Inpatient Short Form: Raw Score: 6 standardized Score: 23.55 CMS Score: 100% CMS Modifier: CN Informed Consent/Education: Patient instructed in purpose of PT consult and plan of care. Assessment: Patient is a 67-year-old female admitted with sepsis, pneumonia, urinary tract infection, acute kidney injury in setting of Schizophrenia, Alzheimer dementia, chronic obstructive pulmonary disease, asthma, osteopenia, diabetes mellitus. Patient presents with the following impairment level findings: Decreased alertness and ability to participate in therapy session, decreased range of motion all extremities, decreased strength in upper and lower extremities, trunk and cervical spine, decreased strength with bed mobility requiring 2 person assist, decreased strength with supine <> sitting transfers requiring 2 person assist, poor static and dynamic sitting balance at edge of bed with poor head and trunk control unable to sit unsupported, unable to perform bed to wheelchair chair transfers at this time due to stated weakness and decreased alertness. Will initiate physical therapy intervention for functional strengthening transfers to sitting position focusing on head and trunk control in order to progress to stand pivot transfers to wheelchair which is her baseline level of function. At this time recommend nursing Shavon lift to chair if out of bed positioning is required. Prognosis with therapy intervention is poor due to baseline of Alzheimer dementia and schizophrenia patient may not be able to actively participate or follow instruction. Will monitor progress and patient's ability to participate in therapy sessions. Anticipate return to [facility] when medically stable. Impairments are contributing to the following functional limitations: AMPAC score CMS Score: 100% Patient is assessed as a High [id number] complexity based on the following: History: See above Examination: See above Presentation: Unstable Decision Making: AMPAC score CMS Score: 100% Goals: Goals X1 week 1. Supine-Sit: Min assist x1 2. Sit-Supine: Min assist x1 3. Sit-Stand: Mod assist x2 4. Stand-Sit: Min assist x2 5. Bed-Chair: Max assist Shavon lift 6. Chair-Bed: Max assist Shavon lift 7. Balance: Improved sitting balance to fair Plan of Care/Treatment Plan: 1-2x/day, 7 days/week x 1 week. Plan of care has been reviewed with the AIRPLANE ELECTRICIAN providing the service under Physical Therapy direction. Initiate Physical Therapy intervention for strengthening, bed mobility, transfers, gait, balance training, use of assistive device. DISCHARGE RECOMMENDATIONS: Return to the [facility] TREATMENT CODE/TIME: 25 minutes IE 10:40 G Codes in the area mobility of walking and moving around: current status [id number] []; projected status GP [id number]-[]. Discharge status (if discharging) GP [id number] CN based on AMPAC score CMS Score: 100% Betty Harper PT
[2018-02-05] MEDS: Insulin Glargine 300 UNITS/3 ML PEN 20 UNITS SC ×2 (11:00→20:39)
--- NOTE | 2018-02-05 11:07 | IN_ITS ---
Date of service: 02/05/18 Time of Service: 10:45 PT Notes Inpatient Physical Therapy Evaluation Date: 02/05/2018 Referring Doctor: Oralia Canas PT Orders: PT CONSULT: Eval/treat Precautions: Fall precautions Patient Profile/Admitting Diagnosis: Patient is a 67-year-old female admitted with sepsis, pneumonia, urinary tract infection, acute kidney injury PMHX: Schizophrenia, Alzheimer dementia, chronic obstructive pulmonary disease, asthma, osteopenia, diabetes mellitus, breast cancer status post left mastectomy , hyperlipidemia, bilateral ankle fracture Social History/Home Situation: Resident of the [facility], baseline mobility stand pivot transfers to wheelchair, non-ambulatory, total assist ADLs. Equipment Owned/DME: Wheelchair at the [facility] Subjective: Patient lying in bed eyes closed, does not respond to verbal or tactile stimulus, does not follow commands for squeezing hand, lifting extremities or any cues provided by therapist to engage. Opens eyes intermittently. Objective: General Observation: 15 L high flow nasal cannula on AIRVO 2 machine 47% O2, 35 L/min settings, telemetry, right upper extremity IV, De León catheter, MIKE hose, heel protectors, SCDs, BP and O2 monitors Mental Status: A and O x0, nonverbal unable to answer questions or engage in conversation Pain: No signs of pain noticed no grimacing, withdrawing or avoiding movement Vital Signs: See nursing notes ROM: Right Upper Extremity: PROM right shoulder 50 degrees flexion resist further movement, right elbow -10 degrees extension, right wrist mid range only resisting movement Left Upper Extremity: PROM left shoulder 50 degrees of flexion resisting further movement, elbow WNL, left wrist mid range resisting movement Right Lower Extremity: PROM right hip flexion 40 degrees, abduction 20 degrees, knee flexion 60 degrees, ankle -10 degrees dorsiflexion Left Lower Extremity: PROM left hip flexion 50 degrees, abduction 15 degrees, knee flexion 60 degrees, ankle -10 degrees dorsiflexion Strength: Patient unable to follow manual muscle testing, observed actively reaching hands to face throughout session. Slight active motor control noted in head and neck with sitting position, patient able to hold head unsupported for 20 seconds before going into cervical flexion, this appears to be due more to decrease alertness than weakness. Able to main sitting balance unsupported for 10 seconds before requiring assist, unclear if primarily due to fatigue or decreased alertness rather than weakness. Bed Mobility/Transfers: Supine to sit: HOB 35 degrees, max assist x2 Sat at edge of bed for 10 minutes focusing on sitting trunk control, patient requiring max assist initially to maintain sitting balance. Weight shifting activity performed by therapist forward and backward positioning, patient able to engage in active sitting to CGA level. Patient able to sit unsupported for 10 seconds. Patient not actively engaging with sitting balance activities or therapy intervention, primarily keeping eyes closed. O2 sats 93-96% on 15 L high flow nasal cannula, heart rate 112-121 bpm Sit to stand: Unable Bed to chair: Unable. Patient would be a dependent Shavon lift to chair at this time. Sit to supine: HOB 20 degrees max assist x2 for trunk and lower extremities to supine position. Max assist for rolling and positioning in bed. Gait: Unable. due to weakness, decreased alertness, decreased participation in therapy session. Patient is non-ambulatory at baseline performing assisted stand pivot transfers to wheelchair only at the [facility]. Balance: Static Sitting: Poor Dynamic Sitting: Poor Static Standing: Not tested Dynamic Standing: Not tested Special Tests: Mobility Limitations Standardized Measure [facility] 6 clicks Basic Mobility Inpatient Short Form: Raw Score: 6 standardized Score: 23.55 CMS Score: 100% CMS Modifier: CN Informed Consent/Education: Patient instructed in purpose of PT consult and plan of care. Assessment: Patient is a 67-year-old female admitted with sepsis, pneumonia, urinary tract infection, acute kidney injury in setting of Schizophrenia, Alzheimer dementia, chronic obstructive pulmonary disease, asthma, osteopenia, diabetes mellitus. Patient presents with the following impairment level findings: Decreased alertness and ability to participate in therapy session, decreased range of motion all extremities, decreased strength in upper and lower extremities, trunk and cervical spine, decreased strength with bed mobility requiring 2 person assist, decreased strength with supine <> sitting transfers requiring 2 person assist, poor static and dynamic sitting balance at edge of bed with poor head and trunk control unable to sit unsupported, unable to perform bed to wheelchair chair transfers at this time due to stated weakness and decreased alertness. Will initiate physical therapy intervention for functional strengthening transfers to sitting position focusing on head and trunk control in order to progress to stand pivot transfers to wheelchair which is her baseline level of function. At this time recommend nursing Shavon lift to chair if out of bed positioning is required. Prognosis with therapy intervention is poor due to baseline of Alzheimer dementia and schizophrenia patient may not be able to actively participate or follow instruction. Will monitor progress and patient' s ability to participate in therapy sessions. Anticipate return to [facility] when medically stable. Impairments are contributing to the following functional limitations: AMPAC score CMS Score: 100% Patient is assessed as a High [id number] complexity based on the following: History: See above Examination: See above Presentation: Unstable Decision Making: AMPAC score CMS Score: 100% Goals: Goals X1 week 1. Supine-Sit: Min assist x1 2. Sit-Supine: Min assist x1 3. Sit-Stand: Mod assist x2 4. Stand-Sit: Min assist x2 5. Bed-Chair: Max assist Shavon lift 6. Chair-Bed: Max assist Shavon lift 7. Balance: Improved sitting balance to fair Plan of Care/Treatment Plan: 1-2x/day, 7 days/week x 1 week. Plan of care has been reviewed with the LEARNING CENTER INSTRUCTOR providing the service under Physical Therapy direction. Initiate Physical Therapy intervention for strengthening, bed mobility, transfers, gait, balance training, use of assistive device. DISCHARGE RECOMMENDATIONS: Return to the [facility] TREATMENT CODE/TIME: 25 minutes IE 10:40 G Codes in the area mobility of walking and moving around: current status [id number] []; projected status GP [id number]-[]. Discharge status (if discharging) GP [id number] CN based on AMPAC score CMS Score: 100% Betty Harper PT
[2018-02-05] MEDS: Hydrocortisone SOD SUC. 100 MG VIAL 25 MG IVP ×2 (12:15→18:10)
--- NOTE | 2018-02-05 12:20 | PDOC.CMPRO ---
- If Service Date Differs Date of service: 02/05/18 Time of Service: 12:20 Care Management Progress Note S/O: Tri remains in the ICU she continues on Bipap. She is more alert today she can become agitated at times per report. Tri has positive blood cultures and remains on IV antibiotics. She will return to the [facility] when medically ready. Brother Miguelito is the contact lens manufacturer and is aware of her ICU admission. He did spend some time with her yesterday at the bedside. A: Kalina is a 67 year old female admitted from the [facility] with septic shock P:Tri is currently receiving care in the ICU she is not verbal with CM at this time.antibiotics and medications to support her blood pressure. She is currently on BIPAP. [facility] was updated today by CM. CM to continue to provide support to patient, family and care team ongoing discharge planning and disposition.Tri will return to the [facility] when medically ready via wheelchair van versus ambulance.
--- NOTE | 2018-02-05 12:33 | DI.RAD_ITS ---
SYMPTOM/DIAGNOSIS: F/U PNEUMONIA PORTABLE AP CHEST: Comparison is made with 02/04/18. There is poor inspiration with low lung volumes. Cardiac size and pulmonary vasculature are stable. There are again seen bilateral basilar opacities which may reflect infiltrates and/or effusions. Overall there does not appear to be any significant change in appearance of the chest xray compared to the prior examinations. IMPRESSION: Persistent bilateral basilar opacities. These areas may represent pneumonia and/or pleural effusions.
--- NOTE | 2018-02-05 12:55 | CMPROGNOTE_ITS ---
- If Service Date Differs Date of service: 02/05/18 Time of Service: 12:20 Care Management Progress Note S/O: Tri remains in the ICU she continues on Bipap. She is more alert today she can become agitated at times per report. Tri has positive blood cultures and remains on IV antibiotics. She will return to the [facility] when medically ready. Brother Miguelito is the men's and boys' clothing salesperson and is aware of her ICU admission. He did spend some time with her yesterday at the bedside. A: Kalina is a 67 year old female admitted from the [facility] with septic shock P:Tri is currently receiving care in the ICU she is not verbal with CM at this time.antibiotics and medications to support her blood pressure. She is currently on BIPAP. [facility] was updated today by CM. CM to continue to provide support to patient, family and care team ongoing discharge planning and disposition.Tri will return to the [facility] when medically ready via wheelchair van versus ambulance.
--- NOTE | 2018-02-05 14:17 | W.SPEECHEVAL ---
Date of service: 02/05/18 Time of Service: 13:30 Speech Therapy Evaluation Note: REFERRING PROVIDER: Dr. Canas BACKGROUND This is a 67 year old female who is a resident of the [facility] facilt[facility]. On 02/03/18 she presented to the ED with a report of unresponsiveness. A CXR showed bilateral basilar opacities which were felt to represent either pneumonia or pleural effusions. She was subsequently admitted to the ICU for further care of HCAP, UTI, sepsis and acute kidney injury. Because of questions regarding possible aspiration pneumonia, a swallow consult was requested. PMH: dementia, schizophrenia, DM OBJECTIVE Nursing reports the following: - Temp: 36.8 - O2 sat: 94% on Hi-Flow - LS: bilateral rhonchi, left greater than right in the presence of an IV antibiotic - Patient is currently NPO. The patient is reclined in bed. Her eyes are closed and she is using mouth-breathing. She shows occasional spontaneous upper extremity movements. She does not respond to my repeated verbal greeting. Multiple types of sensory stimuli are used in an attempt to increase her alertness level (auditory, tactile, thermal-tactile, olfactory, gustatory). Initally she shows no response. With repeated trials, she then averts her head each time and attempts to bat my hand away with her arm. During this time, she keeps her eyes closed with the exception of one point when she opens her right eye minimally. (No direct eye contact is made.) ASSESSMENT Due to her lack of alertness and participation, the patient is felt to be unsafe for any oral introduction of liquid or food. Consequently, the p. o. portion of this evaluation visit is not done. RECOMMENDATIONS The case is discussed with today's hospitalist, Dr. Canas. It is recommended that the patient remain NPO due to high risk of aspiration in a setting of decreased alertness/participation. It is decided that if the patiient improves to the point of showing sustained alertness/participation, I will be notified in order to reattempt a full swallow evaluaton. Nursing is instructed in these recommendations. Thank you for referring this patient.
--- NOTE | 2018-02-05 14:37 | WOUNDCARE ---
Wound Care Report: This nurse was consulted to recommend care for wound on patient's coccyx and RLE wounds. Patient is a 67 year old female admitted to ICU 2 days ago with an admitting diagnosis of hypovolemic shock, HHNK, and pneumonia. Vital signs, labratory values, history and physical were reviewed. Patient lives at the [facility] and is wheelchair bound. A chart review revealed that wounds were present on admission. Patient is nonverbal and disoriented and unable to sign consent for wound photography. To patient's right medial thigh is noted to be a wound 10.3 x 4 x < 0.1cm. Patient's family reported to nursing that patient sustained a burn from hot coffee at the [facility]. Wound bed is noted to be 100% red nongranulating tissue, with a popped, partially drained fluid filled blister covered the superior half of the wound. A small amount of serous fluid noted to dressing upon removal. Periwound skin is noted to be slightly reddened and warm and dry. This nurse recommends the following: cleansing wound with skintegrity wound cleanser and gauze. Apply telfa nonadherant gauze to wound and then apply 4x4 gauze over telfa. Secure dressing with gauze roll and tape. Change QD and PRN. To patient's right anterior thigh is noted to be a scabbed area measuring 3.5 x 13 cm. No drainage coming from this wound. Leslie wound skin is pink, warm and dry. This nurse recommends applying mepilex with borders and changing Q3D and PRN. To patient's sacrum is noted to be a wound measuring 3.5 x 6.2 <0.1cm. Wound bed is 100% red nongranulating tissue. This wound appears to be a blister that had popped. Small amount of flap noted to superior wound edge, which is not able to be reapproximated. Periwound skin is deep purple and nonblanchable. This nurse recommends cleansing wound with skintegrity wound cleanser and gauze and applying vaseline gauze and telfa nonadherant gauze to wound, secure with tape, and change QD and PRN. To patient's right anterior lower leg is noted to be multiple scabbed abrasions measuring 10.5 x 3.3 cm. Some bruising noted to periwound skin. This nurse recommends leaving these DEANNE. To patient's right heel is noted to be a dark purple area measuring 3 x 3.2 cm. Periwound area is noted to be reddened but blanchable. To patient's left heel is noted to be a dark purple area measuring 1.5 x 1.3 cm. Periwound area is noted to be reddened but blanchable. This nurse recommends applying skin prep to heels and applying mepilex with borders to heel and changing QD and PRN. This nurse also recommends applying heel protectors and floating heels as tolerated. Also recommended to avoid friction and shearing as much as possible. This nurse also recommends consulting podiatry to manage toenails.
--- NOTE | 2018-02-05 14:42 | EVALE_ITS ---
Date of service: 02/05/18 Time of Service: 13:30 Speech Therapy Evaluation Note: REFERRING PROVIDER: Dr. Canas BACKGROUND This is a 67 year old female who is a resident of the [facility] faciltiy. On 02/03/18 she presented to the ED with a report of unresponsiveness. A CXR showed bilateral basilar opacities which were felt to represent either pneumonia or pleural effusions. She was subsequently admitted to the ICU for further care of HCAP, UTI, sepsis and acute kidney injury. Because of questions regarding possible aspiration pneumonia, a swallow consult was requested. PMH: dementia, schizophrenia, DM OBJECTIVE Nursing reports the following: - Temp: 36.8 - O2 sat: 94% on Hi-Flow - LS: bilateral rhonchi, left greater than right in the presence of an IV antibiotic - Patient is currently NPO. The patient is reclined in bed. Her eyes are closed and she is using mouth- breathing. She shows occasional spontaneous upper extremity movements. She does not respond to my repeated verbal greeting. Multiple types of sensory stimuli are used in an attempt to increase her alertness level (auditory, tactile, thermal-tactile, olfactory, gustatory). Initally she shows no response. With repeated trials, she then averts her head each time and attempts to bat my hand away with her arm. During this time, she keeps her eyes closed with the exception of one point when she opens her right eye minimally. (No direct eye contact is made.) ASSESSMENT Due to her lack of alertness and participation, the patient is felt to be unsafe for any oral introduction of liquid or food. Consequently, the p. o. portion of this evaluation visit is not done. RECOMMENDATIONS The case is discussed with today's hospitalist, Dr. Canas. It is recommended that the patient remain NPO due to high risk of aspiration in a setting of decreased alertness/participation. It is decided that if the patiient improves to the point of showing sustained alertness/participation, I will be notified in order to reattempt a full swallow evaluaton. Nursing is instructed in these recommendations. Thank you for referring this patient.
[2018-02-05] MEDS: Enoxaparin 30 MG/0.3 ML SYR SC (15:59)
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
[2018-02-05] MEDS: VANCOMYCIN 500 MG in Normal Saline 100 ML 100 MG IVPB (22:20)
[2018-02-06] VITALS (51 sets, daily range): BP systolic 85–125; BP diastolic 40–69; PULSE 64–126; RESP 5–43; TEMP 34–38.1; O2SAT 87–98
[2018-02-06] MEDS: Hydrocortisone SOD SUC. 100 MG VIAL 25 MG IVP ×5 (00:29→23:42)
[2018-02-06] MEDS: Insulin Aspart 300 UNITS/3 ML PEN SC ×5 (00:37→23:44)
[2018-02-06] MEDS: Albuterol/Ipratropium 3 ML UPD VIAL UPD ×3 (02:15→13:25)
--- NOTE | 2018-02-06 04:04 | DI.RAD_ITS ---
SYMPTOM/DIAGNOSIS: INCREASED RESPIRATORY RATE, HYPOXIA PORTABLE CHEST: Comparison is made with 05 February 2018. Blunting at both costophrenic angles are again noted. Densities remain present at both lung bases. Basilar densities have worsened when compared with 03 Feb 2018. IMPRESSION: Mild interval worsening of bibasilar opacities.
[2018-02-06] MEDS: LORazepam 2 MG/ML VIAL 0.5 MG IVP (04:13)
[2018-02-06] MEDS: Normal Saline Flush 10 ML SYR IVP ×2 (04:13→17:59)
--- NOTE | 2018-02-06 04:49 | DI.VRAD_ITS ---
EXAM: XR Chest, 1 View EXAM DATE/TIME: 02/06/2018 4:05 AM CLINICAL HISTORY: 67 years old, female; Signs and symptoms; Other: Increased resp rate, hupoxia TECHNIQUE: XR of the chest, 1 view. COMPARISON: CR XR PORTABLE CHEST AP 02/05/2018 12:33 PM FINDINGS: Lungs: Stable basilar pleural-parenchymal opacities. Pleural space: See above. Heart/Mediastinum: Unremarkable. No cardiomegaly. Bones/joints: Disc osteophyte of the spine. IMPRESSION: No significant interval change. Dictated and Authenticated by: Truman Beasley MD. Ordering:.[facility] CONCEPCION GORDON MD
[2018-02-06] MEDS: MORPHine 2 MG/ML SYR IVP (05:35)
--- NOTE | 2018-02-06 05:54 | PGE_ITS ---
Date of Service Date of service: 02/06/18 Time of Service: 05:40 Subjective Interval history since last seen: Called for agitation, tachypnea, tachycardia and hypoxia. Chart reviewed, in with sepsis, HCAP and UTI, has been weaned from pressors and now on Vanco and Zosyn. Staff noted fairly abrupt agitation as above. Patient unable to provide any history. Initial exam shows rr in 30s, pulse 120, bp99/sys. Lungs bibasilar rales, heart tachy/regular, abdomen soft and NT, extr w/o edema, calves non-tender, SCDs in place. Benítez draining. CXR unchanged or(to my eye) perha[ps a little better, with persisitent bibasilar opacities. EKG sinus tach without sig STTW changes. finger stick 281 A/P:Unclear. No objective signs acute cardiopulmonary issue. PE could manifest with this constellation though patient has been on appropriate prophylaxis. No obvious source of acute pain. Patient has been off various psychoactive meds. could be a psychiatric issue. Patient given 0.5 Ativan with little effect. MS 2 mg, repeat x one with good effect, RR decrease 20, pulse 100, appears calm. Will continue prn MS. Will add on d-Dimer to AM labs though will likely be elevated due to multiple ongoing issues. If situation remains unclear would consider CTA, will give single dose full dose Lovenox in interim. Will continue prn MS and consider prn Haldol. Objective Objective Clinical Data: Abnormal lab results 02/03/18 02/04/18 02/05/18 Range/Units 18:00 09:10 07:00 WBC 26.93 H* 22.15 H (4.4-10.8) k/cumm RBC 3.53 L 3.39 L (4.00-5.20) m/cumm Hgb 11.5 L D 10.9 L (12.0-15.5) g/dL Hct 35.1 L (36.0-46.0) % MCV 106.2 H 103.5 H (80-95) fL MCHC 30.7 L 31.1 L (32.0-36.0) g/dL MPV 13.0 H 13.6 H (8.0-11.0) fL Absolute Neutrophils 16.88 H 18.58 H 18.61 H (1.2-6.7) k/cumm Sodium (136-145) mmol/L Chloride (98-107) mmol/L Anion Gap (3-11) mmol/L BUN (7-18) mg/dL Creatinine (0.55-1.02) mg/dL Glucose (70-100) mg/dL Lactate (0.6-1.4) mmol/L 02/05/18 02/05/18 Range/Units 07: 07:10 WBC (4.4-10.8) k/cumm RBC (4.00-5.20) m/cumm Hgb (12.0-15.5) g/dL Hct (36.0-46.0) % MCV (80-95) fL MCHC (32.0-36.0) g/dL MPV (8.0-11.0) fL Absolute Neutrophils (1.2-6.7) k/cumm Sodium 158 H* (136-145) mmol/L Chloride 124 H (98-107) mmol/L Anion Gap 12.8 H (3-11) mmol/L BUN 88 H* (7-18) mg/dL Creatinine 2.32 H (0.55-1.02) mg/dL Glucose 463 H D (70-100) mg/dL Lactate 1.9 H (0.6-1.4) mmol/L Vital Signs Temperature 37.5 C 02/06/18 00:00 Temperature Source Temporal Artery Scan 02/06/18 00:00 Pulse 105 H 02/06/18 04:25 Pulse 108 H 02/06/18 04:25 Respiratory Rate 29 H 02/06/18 04:25 Respiratory Effort 02/06/18 00:00 Respiratory Depth Normal 02/06/18 00:00 Respiratory Pattern Tachypnea 02/06/18 00:00 Blood Pressure 99/48 L 02/06/18 04:25 Blood Pressure Mean 60 02/06/18 04:25 Blood Pressure Position Supine 02/06/18 00:00 Pulse Oximetry 90 L 02/06/18 04:25 Oxygen Delivery Method Hi Flow System 02/06/18 00:00 Oxygen Flow Rate 35 02/06/18 00:00 Fraction of Inspired Oxygen (FIO2) 45 02/06/18 00:00 Pain Level 0 02/05/18 20:24 Intake & Output 02/05/18 02/05/18 02/06/18 11:59 23:59 11:59 Intake Total 2150 / 2150 1208.75 / 1208.75 222.5 / 222.5 Output Total 1425 / 1425 2450 / 2450 Balance 725 / 725 -1241.25 / -1241.25 222.5 / 222.5 Weight 67.4 kg Intake: IV 2150 / 2150 1208.75 / 1208.75 222.5 / 222.5 Oral 0 / 0 0 / 0 Output: Urine 1425 / 1425 2450 / 2450 Other: Urine Color Yellow Pale Yellow Urine Appearance Clear Clear Comment Benítez intact and draining well. indwelling benítez benítez cath in place draining yellow urine. Laboratory Results WBC 22.15 k/cumm (4.4-10.8) H 02/05/18 07:00 RBC 3.39 m/cumm (4.00-5.20) L 02/05/18 07:00 Hgb 10.9 g/dL (12.0-15.5) L 02/05/18 07:00 Hct 35.1 % (36.0-46.0) L 02/05/18 07:00 MCV 103.5 fL (80-95) H 02/05/18 07:00 MCH 32.2 pg (27.0-33.0) 02/05/18 07:00 MCHC 31.1 g/dL (32.0-36.0) L 02/05/18 07:00 RDW 13.7 % (11.7-14.6) 02/05/18 07:00 Plt Count 148 x1000/uL (130-400) 02/05/18 07:00 MPV 13.6 fL (8.0-11.0) H 02/05/18 07:00 Immature Gran % See Differential 02/05/18 07:00 Neutrophils % 64.0 02/05/18 07:00 Lymphocytes % 10.0 02/05/18 07:00 Monocytes % 2.0 02/05/18 07:00 Eosinophils % 0.0 02/05/18 07:00 Basophils % 0.0 02/05/18 07:00 Absolute Neutrophils 18.61 k/cumm (1.2-6.7) H 02/05/18 07:00 Band Neutrophils 20.0 % 02/05/18 07:00 Absolute Lymphocytes 2.22 k/cumm (1.2-3.4) 02/05/18 07:00 Absolute Monocytes 0.44 k/cumm (0.11-0.7) 02/05/18 07:00 Absolute Eosinophils 0.00 k/cumm (0.0-0.7) 02/05/18 07:00 Absolute Basophils 0.00 k/cumm (0.0-0.2) 02/05/18 07:00 Metamyelocytes 4.0 % 02/05/18 07:00 Myelocytes 4.0 % 02/04/18 09:10 Nucleated RBCs 1 /100WBC 02/04/18 09:10 Differential Comment Manual differential 02/05/18 07:00 Atypical Lymphocytes 0 02/03/18 18:00 RBC Morphology See below 02/05/18 07:00 Polychromasia Present 02/03/18 18:00 Hypochromasia 1+ 02/04/18 09:10 Macrocytosis 1+ 02/05/18 07:00 PT 19.5 sec (9.3-10.8) H 02/04/18 06:23 INR 2.0 (1.0-3.5) 02/04/18 06:23 APTT 26.1 sec (21.0-31.4) 02/03/18 18:00 Sample Site Right radial 02/04/18 09:31 pCO2 42 mmHg (34-47) 02/04/18 09:31 pO2 86 mmHg (83-108) 02/04/18 09:31 O2 Saturation 97 % (94-98) 02/04/18 09:31 ABG pH 7.26 (7.35-7.45) L 02/04/18 09:31 ABG HCO3 19 mmol/L (22-28) L 02/04/18 09:31 ABG Total CO2 18 mmol/L (22-29) L 02/04/18 09:31 ABG Base Excess mmol/L (-3-3) 02/04/18 09:31 Oxygen Liter Flow Bipap L 02/03/18 20:47 FiO2 60 % 02/04/18 09:31 Sodium 158 mmol/L (136-145) H* 02/05/18 07:10 Potassium 4.2 mmol/L (3.5-5.1) 02/05/18 07:10 Chloride 124 mmol/L (98-107) H 02/05/18 07:10 Carbon Dioxide 21.2 mmol/L (21.0-32.0) 02/05/18 07:10 Anion Gap 12.8 mmol/L (3-11) H 02/05/18 07:10 BUN 88 mg/dL (7-18) H* 02/05/18 07:10 Creatinine 2.32 mg/dL (0.55-1.02) H 02/05/18 07:10 Estimated GFR/1.73 m2 20.94 (mL/min/1.73m2) 02/05/18 07:10 Glucose 463 mg/dL (70-100) H D 02/05/18 07:10 Hemoglobin A1c 10.0 % (4.5-6.2) H 02/04/18 09:10 Lactate 1.9 mmol/L (0.6-1.4) H 02/05/18 07:00 Calcium 8.7 mg/dL (8.5-10.1) 02/05/18 07:10 Magnesium 1.9 mg/dL (1.8-2.4) 02/05/18 07:10 Total Bilirubin 0.2 mg/dL (0.2-1.0) 02/04/18 09:10 AST 20 U/L (15-37) 02/04/18 09:10 ALT 13 U/L (12-78) 02/04/18 09:10 Alkaline Phosphatase 117 U/L (46-116) H 02/04/18 09:10 Ammonia 53 umol/L (11-32) H 02/03/18 19:55 Troponin I 0.14 ng/mL (0.00-0.06) H 02/04/18 09:10 NT-Pro-B Natriuret Pep 2212 pg/mL (-299) H 02/03/18 19:55 Total Protein 6.2 g/dL (6.4-8.2) L 02/04/18 09:10 Albumin 1.6 g/dL (3.4-5.0) L 02/04/18 09:10 Lipase 98 U/L (73-393) 02/03/18 18:00 TSH 0.54 uIU/mL (0.358-3.74) 02/03/18 18:00 Urine Color Yellow (Yellow) 02/03/18 19:00 Urine Clarity Sl cloudy 02/03/18 19:00 Urine pH 5.5 (5-8) 02/03/18 19:00 Ur Specific [place] 1.010 (1.005-1.025) 02/03/18 19:00 Urine Protein Negative mg/dL (Negative) 02/03/18 19:00 Urine Ketones Negative mg/dL (Negative) 02/03/18 19:00 Urine Blood Moderate (Negative) H 02/03/18 19:00 Urine Nitrite Positive (Negative) H 02/03/18 19:00 Urine Bilirubin Negative (Negative) 02/03/18 19:00 Urine Urobilinogen 0.2 EU/dL (Up TO 0.2) 02/03/18 19:00 Ur Leukocyte Esterase Trace (Negative) H 02/03/18 19:00 Urine RBC >50 (0-2) H 02/03/18 19:00 Urine WBC 5-10 HPF (0-5) 02/03/18 19:00 Ur Epithelial Cells Few HPF (Negative) 02/03/18 19:00 Urine Crystals Negative HPF (Negative) 02/03/18 19:00 Urine Bacteria Many HPF (Negative) 02/03/18 19:00 Urine Casts Negative LPF (Negative) 02/03/18 19:00 Urine Mucus Negative (Negative) 02/03/18 19:00 Urine Other Negative (Negative) 02/03/18 19:00 Ur Culture Indicated? Yes 02/03/18 19:00 Urine Glucose >=1000 mg/dL (Negative) H 02/03/18 19:00 Total Valproic Acid 12.0 ug/mL (50-100) L 02/04/18 09:10 Path Cons Comment 02/04/18 09:10
[2018-02-06] MEDS: PIPERACILLIN/TAZO 3.375 GM in Normal Saline 50 ML IVPB (06:25)
[2018-02-06] MEDS: Enoxaparin 60 MG/0.6 ML SYR SC (06:27)
[2018-02-06 06:34] LABS: Abs Immature Grans 0.04 k/cumm (0.0-0.09); HCT 34.3 % (36.0-46.0); HGB 10.9 g/dL (12.0-15.5); Mean Corp. HGB Concentration 31.8 g/dL (32.0-36.0); Mean Corpuscular Hemoglobin 31.7 pg (27.0-33.0); Mean Corpuscular Volume 99.7 fL (80-95); Mean Platelet Volume 13.1 fL (8.0-11.0); Platelet Count 133 x1000/uL (130-400); RBC 3.44 m/cumm (4.00-5.20); RBC Distribution Width 13.7 % (11.7-14.6); White Blood Cell Count 14.67 k/cumm (4.4-10.8)
[2018-02-06 06:47] LABS: Anion Gap 13.5 mmol/L (3-11); CO2 24.5 mmol/L (21.0-32.0); CREATININE 2.02 mg/dL (0.55-1.02); Calcium 9.3 mg/dL (8.5-10.1); Chloride 119 mmol/L (98-107); Estimated GFR 24.57 (mL/min/1.73m2); Glucose 340 mg/dL (70-100); Magnesium 1.8 mg/dL (1.8-2.4)
[2018-02-06 07:12] LABS: BUN 83 mg/dL (7-18); Sodium 157 mmol/L (136-145)
[2018-02-06 07:13] LABS: C-Reactive Protein > 25.00 mg/dL (0.0-0.3); Potassium 2.6 mmol/L (3.5-5.1)
[2018-02-06 07:16] LABS: D-Dimer 2213 ng/mlFEU (<500)
--- NOTE | 2018-02-06 07:37 | PDOC.CMPRO ---
Care Management Progress Note S/O: Tri remains in the ICU and she continues on Bipap. She has been evaluated by PT and OT and MD consulted the personal development educator, nutrition, podiatry, and wound care. She also had a chest xray last night. Kalina has been struggling with ongoing agitation but is unable to meaningfully communicate. Dr. Barcenas responded early this morning to access Kalina as she was agitated with tachycardia, tachypnea and hypoxia. Kalina was treated with Ativan. Kalina's brother is her medical decision maker. Per RN: Safia, guardianship is in process. Kalina is a resident at the [facility], if her health concerns become imminent per MD-CM will work with staff and family to coordinate next steps. A: Kalina is a 67 year old female admitted to [facility] from the [facility] on 02/03/18 with Hypolemic shock: HHNK: Pneumonia P: Tri continues to receive care in the ICU, is being treated with IV Medications and fluids and her labs are being closely monitored. She also remains on BIPAP. CM to continue to provide support to patient, family and care team.Tri will return to the [facility] when medically ready via W/C van vs EMS.
[2018-02-06] MEDS: DEXTROSE 5%-WATER 1,000 ML 75 ML IV (07:44)
--- NOTE | 2018-02-06 07:50 | CMPROGNOTE_ITS ---
Care Management Progress Note S/O: Tri remains in the ICU and she continues on Bipap. She has been evaluated by PT and OT and MD consulted the field installer, nutrition, podiatry, and wound care. She also had a chest xray last night. Kalina has been struggling with ongoing agitation but is unable to meaningfully communicate. Dr. Barcenas responded early this morning to access Kalina as she was agitated with tachycardia, tachypnea and hypoxia. Kalina was treated with Ativan. Kalina's brother is her medical decision maker. Per RN: Safia, guardianship is in process. Kalina is a resident at the [facility], if her health concerns become imminent per MD-CM will work with staff and family to coordinate next steps. A: Kalina is a 67 year old female admitted to [facility] from the [facility] on 02/03/18 with Hypolemic shock: HHNK: Pneumonia P: Tri continues to receive care in the ICU, is being treated with IV Medications and fluids and her labs are being closely monitored. She also remains on BIPAP. CM to continue to provide support to patient, family and care team.Tri will return to the [facility] when medically ready via W/C van vs EMS.
[2018-02-06 08:08] LABS: Absolute Monocyte Count 0.15 k/cumm (0.11-0.7); Absolute Neutrophil Count 12.18 k/cumm (1.2-6.7); Diff Comment Manual Differential; Macrocytosis 1+
[2018-02-06] MEDS: Moxifloxacin 0.5% 3 ML BTL OU ×3 (08:30→19:53)
[2018-02-06] MEDS: Insulin Glargine 300 UNITS/3 ML PEN 20 UNITS SC ×2 (08:54→19:54)
[2018-02-06] MEDS: POTASSIUM CHLORIDE 20 MEQ/100 ML BAG 50 MEQ IVPB ×2 (08:55→11:05)
[2018-02-06] MEDS: Nystatin POWDER 60 GM JAR TP ×3 (09:44→19:55)
--- NOTE | 2018-02-06 10:24 | PT.INTREAT ---
Date of service: 02/06/18 Time of Service: 10:10 PT Notes 02/06/18 As per discussion with nursing staff, held on PT services this morning due to unresponsiveness. Etelvina Carias, SHAREPOINT ENGINEER
--- NOTE | 2018-02-06 10:30 | PTTR_ITS ---
Date of service: 02/06/18 Time of Service: 10:10 PT Notes 02/06/18 As per discussion with nursing staff, held on PT services this morning due to unresponsiveness. Etelvina Carias, COMPLETION ENGINEER
[2018-02-06] MEDS: MEROPENEM 1 GM in Normal Saline 100 ML IVPB ×2 (11:04→23:43)
[2018-02-06 11:30] LABS: Sodium, Urine 7 mmol/L
--- NOTE | 2018-02-06 11:41 | PGE_ITS ---
Date of Service Date of service: 02/06/18 Time of Service: 11:40 Assessment and Plan (1) Sepsis: Current visit: Yes Status: Acute With Staph Aureus bacteremia as well as ESBL E. Coli by UTI - Initially required pressor support and BiPAP. Patient continues to be hypotensive and borderline tachycardic. Ms. Hollis had been maintained on Vancomycin and Zosyn - given presence of ESBL E.Coli on urine cultures will change treatment to Meropenem. Continue Vancomycin, now day #2. Continue to monitor cultures and await sensitivities on Staph Aureus, with Catheter Tip cultures still pending. Concerning that patient' s blood cultures were positive from both 02/03 and 02/05, and given negative TTE will very likely require a VILMA once more stable. Plan on discussion with cardiology when available. Repeat Blood Cultures today as well with Catheter removed. Will continue to need ICU level care. (2) UTI (urinary tract infection): Current visit: Yes Status: Acute Treatment as above. Continue Meropenem Day #1 for ESBL E.Coli. (3) HCAP (healthcare-associated pneumonia): Current visit: Yes Status: Acute Treatment as above. (4) Diabetic hyperosmolar non-ketotic state: Current visit: Yes Status: Resolved In setting of infection and dehydration - appears resolved. (5) Elevated troponin I level: Current visit: Yes Status: Acute In setting of LUIS and sepsis, Likely mild demand with poor renal clearance. Monitor. No indication for further work-up at this time. (6) COPD (chronic obstructive pulmonary disease): Current visit: No Status: Chronic Acute exacerbation in setting of pneumonia. Initially required BiPAP. Continue steroids and wean when able, nebs, and antibiotics as above. (7) Acute kidney injury (nontraumatic): Current visit: Yes Status: Acute with multiple acid-base disorder, due to sepsis, dehydration of HHNK. Baseline creatinine is approximately 1.2, today it is down to 2 from prior value of 2.32 and initial 3.97. Continue IVF as below. Continue to hold on imaging as creatinine improving daily. Continue benítez catheter but change today. (8) Hypernatremia: Current visit: Yes Status: Acute Previously calculated Free water deficit of approximately 4 L - had originally improved slightly, but now stagnant. Will continue but increase D5 with Water for planned gradual and gentle drop in sodium, with very close monitoring of sodium levels; previously received lasix, but discontinued. Monitor Sodium level very closely. Will also check Kyler and UOsm. (9) Toxic metabolic encephalopathy: Current visit: Yes Status: Acute In setting of baseline dementia, likely part of sepsis, initial HHNK, and continued and significant hypernatremia. Continue to monitor. Repeat swallow evaluation when able - however, if this behavior persists, would need to consider tube feeding/PEG tube placement. (10) Dementia: Current visit: No Status: Chronic Resident of shelter. (11) Anemia: Current visit: No Status: Chronic Macrocytic. Continue to monitor Hemoglobin. (12) DVT prophylaxis: Current visit: Yes Status: Acute Heparin SC (13) Advance directive on file: Current visit: Yes Status: Acute Guardianship in process of application with brother. Full code currently. May need a PEG tube. Subjective Interval history since last seen: 67-year-old female resident of the [facility] with a past medical history significant for dementia and schizophrenia, admitted on 02/03 from [facility] with a diagnosis of Sepsis with evidence of both UTI and Pneumonia. Ms. Hollis has a history of diabetes mellitus not currently on medical treatment, prior CVA by CT findings, prior history of Breast Ca, and early onset Dementia. She presented to the Emergency Department after being found unresponsive at the shelter with shallow respirations, hypotension, hyperglycemia, and tachycardia. She was also noted to be hypoxic by EMS. Initial evaluation in the ED was notable for significant leukocytosis, significant hyperglycemia, and profound hypernatremia. She also had evidence of an Acute Kidney Injury. Her Urinalysis was suggestive of UTI, and imaging showed evidence of a Left Lower Lobe infiltrate. The patient's lactate was also elevated. She was admitted to the ICU for sepsis. The patient initially required Pressor support and BiPap therapy, but had shown evidence of improvement. Last night however she experienced worsening confusion , and had evidence of hypotension, tachycardia, and hypoxia. She received IV Ativan and Morphine by the covering attending. This morning Ms. Hlolis continues to be hypotensive, and she is sedated following administration of medications last night. Review of blood cultures with evidence of Staph Aureus on 02/03, and GPC from 02/05, as well as E.Coli on Urinary Culture that is ESBL. She remains febrile. Exam Narrative Exam Narrative: General: Appears older than stated age, laying in bed and minimally responsive to verbal and tactile stimuli. Neck: Supple CV: Regular, nontachycardic at time of exam, no rubs murmurs or gallops. Pulmonary: Minimal rhonchi at the left base, otherwise clear GI: +BS, s/nt/nd Vasc: No LE edema Objective Objective Clinical Data: Abnormal lab results 02/03/18 02/06/18 02/06/18 Range/Units 19:00 06:25 06:25 WBC 14.67 H D (4.4-10.8) k/cumm RBC 3.44 L (4.00-5.20) m/cumm Hgb 10.9 L (12.0-15.5) g/dL Hct 34.3 L (36.0-46.0) % MCV 99.7 H D (80-95) fL MCHC 31.8 L (32.0-36.0) g/dL MPV 13.1 H (8.0-11.0) fL Absolute Neutrophils 12.18 H (1.2-6.7) k/cumm D-Dimer (<500) ng/mlFEU Sodium 157 H* (136-145) mmol/L Potassium 2.6 L* D (3.5-5.1) mmol/L Chloride 119 H (98-107) mmol/L Anion Gap 13.5 H (3-11) mmol/L BUN 83 H* (7-18) mg/dL Creatinine 2.02 H (0.55-1.02) mg/dL Glucose 340 H D (70-100) mg/dL C-Reactive Protein > 25.00 H (0.0-0.3) mg/dL Urine Blood Moderate H (Negative) Urine Nitrite Positive H (Negative) Ur Leukocyte Esterase Trace H (Negative) Urine RBC >50 H (0-2) Urine Glucose >=1000 H (Negative) mg/dL 02/06/18 Range/Units 06:25 WBC (4.4-10.8) k/cumm RBC (4.00-5.20) m/cumm Hgb (12.0-15.5) g/dL Hct (36.0-46.0) % MCV (80-95) fL MCHC (32.0-36.0) g/dL MPV (8.0-11.0) fL Absolute Neutrophils (1.2-6.7) k/cumm D-Dimer 2213 H (<500) ng/mlFEU Sodium (136-145) mmol/L Potassium (3.5-5.1) mmol/L Chloride (98-107) mmol/L Anion Gap (3-11) mmol/L BUN (7-18) mg/dL Creatinine (0.55-1.02) mg/dL Glucose (70-100) mg/dL C-Reactive Protein (0.0-0.3) mg/dL Urine Blood (Negative) Urine Nitrite (Negative) Ur Leukocyte Esterase (Negative) Urine RBC (0-2) Urine Glucose (Negative) mg/dL Vital Signs Temperature 38.1 C H 02/06/18 08:21 Temperature Source Temporal Artery Scan 02/06/18 08:21 Pulse 91 H 02/06/18 11:00 Pulse 92 H 02/06/18 11:00 Respiratory Rate 21 02/06/18 11:00 Respiratory Effort 02/06/18 08:21 Respiratory Depth Normal 02/06/18 08:21 Respiratory Pattern Normal 02/06/18 08:21 Blood Pressure 106/53 L 02/06/18 11:00 Blood Pressure Mean 65 02/06/18 11:00 Blood Pressure Position Right Lateral 02/06/18 08:21 Pulse Oximetry 93 L 02/06/18 11:00 Oxygen Delivery Method Bi-pap 02/06/18 08:21 Oxygen Flow Rate 35 02/06/18 00:00 Fraction of Inspired Oxygen (FIO2) 36 02/06/18 08:21 Pain Level 0 02/06/18 08:21 Intake & Output 02/05/18 02/05/18 02/06/18 11:59 23:59 11:59 Intake Total 2150 / 2150 1208.75 / 1208.75 873.75 / 873.75 Output Total 1425 / 1425 2450 / 2450 500 / 500 Balance 725 / 725 -1241.25 / -1241.25 373.75 / 373.75 Weight 67.4 kg 69.5 kg Intake: IV 2150 / 2150 1208.75 / 1208.75 873.75 / 873.75 Oral 0 / 0 0 / 0 Output: Urine 1425 / 1425 2450 / 2450 500 / 500 Other: Urine Color Yellow Pale Yellow Yellow Straw Urine Appearance Clear Clear Clear Comment Benítez intact and draining well. indwelling benítez [place] bed pad soaked with urine. Benítez catheter changed at time, will continue to monitor. Laboratory Results WBC 14.67 k/cumm (4.4-10.8) H D 02/06/18 06:25 RBC 3.44 m/cumm (4.00-5.20) L 02/06/18 06:25 Hgb 10.9 g/dL (12.0-15.5) L 02/06/18 06:25 Hct 34.3 % (36.0-46.0) L 02/06/18 06:25 MCV 99.7 fL (80-95) H D 02/06/18 06:25 MCH 31.7 pg (27.0-33.0) 02/06/18 06:25 MCHC 31.8 g/dL (32.0-36.0) L 02/06/18 06:25 RDW 13.7 % (11.7-14.6) 02/06/18 06:25 Plt Count 133 x1000/uL (130-400) 02/06/18 06:25 MPV 13.1 fL (8.0-11.0) H 02/06/18 06:25 Immature Gran % 0.0 02/06/18 06:25 Neutrophils % 65.0 12 06:25 Lymphocytes % 15.0 02/06/18 06:25 Monocytes % 1.0 02/06/18 06:25 Eosinophils % 0.0 02/06/18 06:25 Basophils % 0.0 02/06/18 06:25 Absolute Neutrophils 12.18 k/cumm (1.2-6.7) H 02/06/18 06:25 Band Neutrophils 18.0 % 02/06/18 06:25 Absolute Lymphocytes 2.20 k/cumm (1.2-3.4) 02/06/18 06:25 Absolute Monocytes 0.15 k/cumm (0.11-0.7) 02/06/18 06:25 Absolute Eosinophils 0.00 k/cumm (0.0-0.7) 02/06/18 06:25 Absolute Basophils 0.00 k/cumm (0.0-0.2) 02/06/18 06:25 Metamyelocytes 1.0 % 02/06/18 06:25 Myelocytes 4.0 % 02/04/18 09:10 Nucleated RBCs 1 /100WBC 02/04/18 09:10 Differential Comment Manual differential 02/06/18 06:25 Atypical Lymphocytes 0 12 18:00 RBC Morphology See below 02/06/18 06:25 Polychromasia Present 02/03/18 18:00 Hypochromasia 1+ 02/04/18 09:10 Macrocytosis 1+ 02/06/18 06:25 PT 19.5 sec (9.3-10.8) H 02/04/18 06:23 INR 2.0 (1.0-3.5) 02/04/18 06:23 APTT 26.1 sec (21.0-31.4) 02/03/18 18:00 D-Dimer 2213 ng/mlFEU (<500) H 02/06/18 06:25 Sample Site Right radial 02/04/18 09:31 pCO2 42 mmHg (34-47) 02/04/18 09:31 pO2 86 mmHg (83-108) 02/04/18 09:31 O2 Saturation 97 % (94-98) 02/04/18 09:31 ABG pH 7.26 (7.35-7.45) L 02/04/18 09:31 ABG HCO3 19 mmol/L (22-28) L 02/04/18 09:31 ABG Total CO2 18 mmol/L (22-29) L 02/04/18 09:31 ABG Base Excess mmol/L (-3-3) 02/04/18 09:31 Oxygen Liter Flow Bipap L 02/03/18 20:47 FiO2 60 % 02/04/18 09:31 Sodium 157 mmol/L (136-145) H* 02/06/18 06:25 Potassium 2.6 mmol/L (3.5-5.1) L* D 02/06/18 06:25 Chloride 119 mmol/L (98-107) H 02/06/18 06:25 Carbon Dioxide 24.5 mmol/L (21.0-32.0) 02/06/18 06:25 Anion Gap 13.5 mmol/L (3-11) H 02/06/18 06:25 BUN 83 mg/dL (7-18) H* 02/06/18 06:25 Creatinine 2.02 mg/dL (0.55-1.02) H 02/06/18 06:25 Estimated GFR/1.73 m2 24.57 (mL/min/1.73m2) 02/06/18 06:25 Glucose 340 mg/dL (70-100) H D 02/06/18 06:25 Hemoglobin A1c 10.0 % (4.5-6.2) H 02/04/18 09:10 Lactate 1.9 mmol/L (0.6-1.4) H 02/05/18 07:00 Calcium 9.3 mg/dL (8.5-10.1) 02/06/18 06:25 Magnesium 1.8 mg/dL (1.8-2.4) 02/06/18 06:25 Total Bilirubin 0.2 mg/dL (0.2-1.0) 02/04/18 09:10 AST 20 U/L (15-37) 02/04/18 09:10 ALT 13 U/L (12-78) 02/04/18 09:10 Alkaline Phosphatase 117 U/L (46-116) H 02/04/18 09:10 Ammonia 53 umol/L (11-32) H 02/03/18 19:55 Troponin I 0.14 ng/mL (0.00-0.06) H 02/04/18 09:10 C-Reactive Protein > 25.00 mg/dL (0.0-0.3) H 02/06/18 06:25 NT-Pro-B Natriuret Pep 2212 pg/mL (-299) H 02/03/18 19:55 Total Protein 6.2 g/dL (6.4-8.2) L 02/04/18 09:10 Albumin 1.6 g/dL (3.4-5.0) L 02/04/18 09:10 Lipase 98 U/L (73-393) 02/03/18 18:00 TSH 0.54 uIU/mL (0.358-3.74) 02/03/18 18:00 Urine Color Yellow (Yellow) 02/03/18 19:00 Urine Clarity Sl cloudy 02/03/18 19:00 Urine pH 5.5 (5-8) 02/03/18 19:00 Ur Specific [place] 1.010 (1.005-1.025) 02/03/18 19:00 Urine Protein Negative mg/dL (Negative) 02/03/18 19:00 Urine Ketones Negative mg/dL (Negative) 02/03/18 19:00 Urine Blood Moderate (Negative) H 02/03/18 19:00 Urine Nitrite Positive (Negative) H 02/03/18 19:00 Urine Bilirubin Negative (Negative) 02/03/18 19:00 Urine Urobilinogen 0.2 EU/dL (Up TO 0.2) 02/03/18 19:00 Ur Leukocyte Esterase Trace (Negative) H 02/03/18 19:00 Urine RBC >50 (0-2) H 02/03/18 19:00 Urine WBC 5-10 HPF (0-5) 02/03/18 19:00 Ur Epithelial Cells Few HPF (Negative) 02/03/18 19:00 Urine Crystals Negative HPF (Negative) 02/03/18 19:00 Urine Bacteria Many HPF (Negative) 02/03/18 19:00 Urine Casts Negative LPF (Negative) 02/03/18 19:00 Urine Mucus Negative (Negative) 02/03/18 19:00 Urine Other Negative (Negative) 02/03/18 19:00 Ur Culture Indicated? Yes 02/03/18 19:00 Urine Glucose >=1000 mg/dL (Negative) H 02/03/18 19:00 Total Valproic Acid 12.0 ug/mL (50-100) L 02/04/18 09:10 Path Cons Comment 02/04/18 09:10
[2018-02-06 12:13] LABS: Lactate-non-spesis 1.7 mmol/L (0.6-1.4)
[2018-02-06 12:45] LABS: Sodium 157 mmol/L (136-145)
[2018-02-06] MEDS: DEXTROSE 5%-WATER 1,000 ML 100 ML IV (17:48)
[2018-02-06 18:38] LABS: Sodium 155 mmol/L (136-145)
[2018-02-06] MEDS: VANCOMYCIN 500 MG in Normal Saline 100 ML 100 MG IVPB (22:17)
[2018-02-07] VITALS (39 sets, daily range): BP systolic 92–128; BP diastolic 39–81; PULSE 52–99; RESP 5–30; TEMP 34–37.9; O2SAT 87–98
[2018-02-07] MEDS: Albuterol/Ipratropium 3 ML UPD VIAL UPD ×4 (02:15→19:15)
[2018-02-07] MEDS: DEXTROSE 5%-WATER 1,000 ML 100 ML IV (04:52)
[2018-02-07] MEDS: Hydrocortisone SOD SUC. 100 MG VIAL 25 MG IVP ×3 (05:57→17:57)
[2018-02-07] MEDS: Insulin Aspart 300 UNITS/3 ML PEN SC ×3 (05:57→17:55)
[2018-02-07 07:06] LABS: Lactate-non-spesis 2.1 mmol/L (0.6-1.4)
[2018-02-07 07:11] LABS: Abs Immature Grans 0.03 k/cumm (0.0-0.09); Absolute Basophil Count 0.01 k/cumm (0.0-0.2); Absolute Lymphocyte Count 1.82 k/cumm (1.2-3.4); Absolute Neutrophil Count 9.23 k/cumm (1.2-6.7); Basophils % 0.1; HGB 10.2 g/dL (12.0-15.5); Immature Grans % 0.3; Mean Corp. HGB Concentration 31.9 g/dL (32.0-36.0); Mean Corpuscular Hemoglobin 31.4 pg (27.0-33.0); Mean Corpuscular Volume 98.5 fL (80-95); Mean Platelet Volume 13.2 fL (8.0-11.0); Monocytes % 2.6; Platelet Count 124 x1000/uL (130-400); RBC 3.25 m/cumm (4.00-5.20); RBC Distribution Width 13.6 % (11.7-14.6); White Blood Cell Count 11.39 k/cumm (4.4-10.8)
[2018-02-07 07:24] LABS: ALT 34 U/L (12-78); AST 32 U/L (15-37); Albumin 1.2 g/dL (3.4-5.0); Alkaline Phosphatase 142 U/L (46-116); Anion Gap 11.5 mmol/L (3-11); BUN 74 mg/dL (7-18); Bilirubin, Total 0.2 mg/dL (0.2-1.0); CO2 24.5 mmol/L (21.0-32.0); Calcium 8.8 mg/dL (8.5-10.1); Chloride 117 mmol/L (98-107); Estimated GFR 29.98 (mL/min/1.73m2); Glucose 359 mg/dL (70-100); Sodium 153 mmol/L (136-145); Total Protein 5.6 g/dL (6.4-8.2)
[2018-02-07 07:27] LABS: Potassium 2.8 mmol/L (3.5-5.1)
--- NOTE | 2018-02-07 07:43 | CMPROGNOTE_ITS ---
Care Management Progress Note S/O: Tri remains in the ICU-closely monitored at this time. She was lying in bed head turned to the side when CM observed her. Kalina's care was reviewed during interdisciplinary rounds meetings; per MD the focus is first on stabilizing Tri as she is not out of the [facility] yet. She will require steroid taper, VILMA, medical terminologist IV ABX and a swallow eval-possible PEG tube once stable enough per MD. She continues to struggle during the night behaviorally- when she becomes agitated her oxygen levels drop per nursing report-she continues to be closely monitored and treated. Kalina's brother is her medical decision maker. Per RN: Safia, guardianship is in process. Kalina is a resident at the [facility], if her health concerns become imminent per MD-CM will work with staff and family to coordinate next steps. A: Kalina is a 67 year old female admitted to [facility] from the [facility] on 02/03/18 with Hypolemic shock: HHNK: Pneumonia P: Tri continues to receive care in the ICU, is being treated with IV Medications and fluids and her labs are being closely monitored. She also remains on BIPAP. CM to continue to provide support to patient, family and care team. Tri will return to the [facility] when medically ready via W/C van vs EMS.
[2018-02-07] MEDS: Heparin 5,000 UNITS/ML VIAL 5000 UNITS SC ×2 (08:04→16:54)
[2018-02-07] MEDS: Moxifloxacin 0.5% 3 ML BTL OU ×3 (08:04→19:14)
[2018-02-07] MEDS: Insulin Glargine 300 UNITS/3 ML PEN 20 UNITS SC ×2 (08:05→19:15)
[2018-02-07] MEDS: POTASSIUM CHLORIDE 20 MEQ/100 ML BAG 50 MEQ IVPB ×2 (08:05→10:27)
[2018-02-07] MEDS: MAGNESIUM SULFATE 1 GM/100 ML BAG IVPB (08:06)
[2018-02-07] MEDS: Nystatin POWDER 60 GM JAR TP ×3 (09:48→19:20)
--- NOTE | 2018-02-07 12:03 | PGE_ITS ---
Date of Service Date of service: 02/07/18 Time of Service: 12:02 Assessment and Plan (1) Sepsis: Current visit: Yes Status: Acute With Staph Aureus bacteremia as well as ESBL E. Coli by UTI - Initially required pressor support and BiPAP. Patient continues to be febrile, hypotensive , hypoxic, and borderline tachycardic. Ms. Hollis had been maintained on Vancomycin and Zosyn - given presence of ESBL E.Coli on urine cultures antibiotic therapy was changed to Meropenem on 02/06. Staph with sensitivities indicating MSSA. Discontinue Vancomycin and initiate high dose Oxacillin, now day #1. Continue to monitor cultures and repeat surveillance set tomorrow. Patient's blood cultures continue to be positive from both 02/03, 02/05, and 02/06 likely due to inadequate coverage of MSSA. given negative TTE will very likely require a VILMA once more stable. Plan on discussion with cardiology when available. Continue Meropenem Day #2. (2) UTI (urinary tract infection): Current visit: Yes Status: Acute Treatment as above. Continue Meropenem Day #2 for ESBL E.Coli. (3) HCAP (healthcare-associated pneumonia): Current visit: Yes Status: Acute Treatment as above. (4) Diabetic hyperosmolar non-ketotic state: Current visit: Yes Status: Resolved In setting of infection and dehydration - appears resolved. (5) Elevated troponin I level: Current visit: Yes Status: Acute In setting of LUIS and sepsis, Likely mild demand with poor renal clearance. Monitor. No indication for further work-up at this time. (6) COPD (chronic obstructive pulmonary disease): Current visit: No Status: Chronic Acute exacerbation in setting of pneumonia. Initially required BiPAP. Continue steroids and wean when able, nebs, and antibiotics as above. (7) Acute kidney injury (nontraumatic): Current visit: Yes Status: Acute with multiple acid-base disorder, due to sepsis, dehydration of HHNK. Baseline creatinine is approximately 1.2, today it is down to 1.7 from values of 2, 2.32 and initial 3.97. Continue IVF as below. Continue to hold on imaging as creatinine improving daily. Continue benítez catheter, changed 02/06. (8) Hypernatremia: Current visit: Yes Status: Acute Previously calculated Free water deficit of approximately 4 L - had originally improved slightly by numbers, but corrected sodium given elevated sugars was significantly higher at presentation (180's) - unfortunately despite early improvement became stagnant. D5 with Water was increased slightly yesterday, now with evidence of gradual and gentle drop in sodium. Continue very close monitoring of sodium levels; previously received lasix, but discontinued. Monitor Sodium level very closely. Kyler checked at 7, with UOsm pending at this time. (9) Toxic metabolic encephalopathy: Current visit: Yes Status: Acute In setting of baseline dementia, sepsis, initial HHNK, and continued and significant hypernatremia. Continue to monitor. Repeat swallow evaluation when able - however, if this behavior persists, would need to consider tube feeding/PEG tube placement. (10) Dementia: Current visit: No Status: Chronic Resident of skilled nursing. (11) DVT prophylaxis: Current visit: Yes Status: Acute Heparin SC (12) Advance directive on file: Current visit: Yes Status: Acute Guardianship in process of application with brother. Full code currently. May need a PEG tube. Subjective Interval history since last seen: 67-year-old female resident of the [facility] with a past medical history significant for dementia and schizophrenia, admitted on 02/03 from [facility] Emergency Department with a diagnosis of Sepsis with evidence of both UTI and Pneumonia. Ms. Hollsi has a history of diabetes mellitus not currently on medical treatment, prior CVA by CT findings, prior history of Breast Ca, and early onset Dementia. She presented to the Emergency Department after being found unresponsive at the skilled nursing with shallow respirations, hypotension, hyperglycemia, and tachycardia. She was also noted to be hypoxic by EMS. Initial evaluation in the ED was notable for significant leukocytosis, significant hyperglycemia, and profound hypernatremia. She also had evidence of an Acute Kidney Injury. Her Urinalysis was suggestive of UTI, and imaging showed evidence of a Left Lower Lobe infiltrate. The patient's lactate was also elevated. She was admitted to the ICU for sepsis. The patient initially required Pressor support and BiPap therapy, but had shown evidence of improvement as she is now off both. Last night however she experienced worsening confusion again, and had evidence of hypoxia. Review of blood cultures with evidence of Staph Aureus on 02/03 and 02/05, now showing MSSA by sensitivities. Her TLC has been removed, but repeat Blood Cultures from 02/06 are again growing MSSA despite antibiotic therapy. She also has evidence of E.Coli on Urinary Culture that is ESBL prompting a change in antibiotic therapy on 02/06. She remains with elevated temperatures. Exam Narrative Exam Narrative: General: Appears older than stated age, Ill appearing, laying in bed and minimally responsive to verbal and tactile stimuli. Neck: Supple CV: Regular, nontachycardic at time of exam, no rubs murmurs or gallops. Pulmonary: Fairly diffuse rhonchi, appears worsening GI: +BS, Soft, does not appear to be tender, Not distended Vasc: No LE edema Objective Objective Clinical Data: Abnormal lab results 02/06/18 02/06/18 02/06/18 Range/Units 12:00 12:00 18:25 WBC (4.4-10.8) k/cumm RBC (4.00-5.20) m/cumm Hgb (12.0-15.5) g/dL Hct (36.0-46.0) % MCV (80-95) fL MCHC (32.0-36.0) g/dL Plt Count (130-400) x1000/uL MPV (8.0-11.0) fL Absolute Neutrophils (1.2-6.7) k/cumm Sodium 157 H* 155 H (136-145) mmol/L Potassium (3.5-5.1) mmol/L Chloride (98-107) mmol/L Anion Gap (3-11) mmol/L BUN (7-18) mg/dL Creatinine (0.55-1.02) mg/dL Glucose (70-100) mg/dL Lactate 1.7 H (0.6-1.4) mmol/L Alkaline Phosphatase (46-116) U/L Total Protein (6.4-8.2) g/dL Albumin (3.4-5.0) g/dL 02/07/18 02/07/18 02/07/18 Range/Units 07:00 07:00 07:00 WBC 11.39 H (4.4-10.8) k/cumm RBC 3.25 L (4.00-5.20) m/cumm Hgb 10.2 L (12.0-15.5) g/dL Hct 32.0 L (36.0-46.0) % MCV 98.5 H (80-95) fL MCHC 31.9 L (32.0-36.0) g/dL Plt Count 124 L (130-400) x1000/uL MPV 13.2 H (8.0-11.0) fL Absolute Neutrophils 9.23 H (1.2-6.7) k/cumm Sodium 153 H (136-145) mmol/L Potassium 2.8 L* D (3.5-5.1) mmol/L Chloride 117 H (98-107) mmol/L Anion Gap 11.5 H (3-11) mmol/L BUN 74 H (7-18) mg/dL Creatinine 1.70 H (0.55-1.02) mg/dL Glucose 359 H (70-100) mg/dL Lactate 2.1 H (0.6-1.4) mmol/L Alkaline Phosphatase 142 H (46-116) U/L Total Protein 5.6 L (6.4-8.2) g/dL Albumin 1.2 L (3.4-5.0) g/dL Vital Signs Temperature 37.6 C H 02/07/18 08:30 Temperature Source Temporal Artery Scan 02/07/18 08:30 Pulse 96 H 02/07/18 11:00 Pulse 84 02/07/18 11:00 Respiratory Rate 28 H 02/07/18 11:00 Respiratory Effort 02/07/18 08:30 Respiratory Depth Normal 02/07/18 08:30 Respiratory Pattern Normal 02/07/18 08:30 Blood Pressure 99/54 L 02/07/18 11:00 Blood Pressure Mean 66 02/07/18 11:00 Blood Pressure Position Supine 02/07/18 08:30 Pulse Oximetry 90 L 02/07/18 11:00 Oxygen Delivery Method Hi Flow Nasal Cannula 02/07/18 08:30 Oxygen Flow Rate 35 02/07/18 08:30 Fraction of Inspired Oxygen (FIO2) 43 02/07/18 08:30 Pain Level 0 02/07/18 08:30 Intake & Output 02/06/18 02/06/18 02/07/18 11:59 23:59 11:59 Intake Total 923.75 / 923.75 1643.75 / 1643.75 710 / 710 Output Total 500 / 500 725 / 725 450 / 450 Balance 423.75 / 423.75 918.75 / 918.75 260 / 260 Weight 69.5 kg 69.2 kg Intake: IV 923.75 / 923.75 1643.75 / 1643.75 710 / 710 Oral 0 / 0 0 / 0 0 / 0 Output: Urine 500 / 500 725 / 725 450 / 450 Other: Urine Color Yellow Yellow Yellow Straw Urine Appearance Clear Clear Clear Comment [place] bed pad soaked with urine. Benítez catheter changed at time, will continue to monitor. benítez cath in place and draining clear yellow urine. benítez cath in place and draining clear yellow urine. Laboratory Results WBC 11.39 k/cumm (4.4-10.8) H 02/07/18 07:00 RBC 3.25 m/cumm (4.00-5.20) L 02/07/18 07:00 Hgb 10.2 g/dL (12.0-15.5) L 02/07/18 07:00 Hct 32.0 % (36.0-46.0) L 02/07/18 07:00 MCV 98.5 fL (80-95) H 02/07/18 07:00 MCH 31.4 pg (27.0-33.0) 02/07/18 07:00 MCHC 31.9 g/dL (32.0-36.0) L 02/07/18 07:00 RDW 13.6 % (11.7-14.6) 02/07/18 07:00 Plt Count 124 x1000/uL (130-400) L 02/07/18 07:00 MPV 13.2 fL (8.0-11.0) H 02/07/18 07:00 Immature Gran % 0.3 02/07/18 07:00 Neutrophils % 81.0 02/07/18 07:00 Lymphocytes % 16.0 02/07/18 07:00 Monocytes % 2.6 02/07/18 07:00 Eosinophils % 0.0 02/07/18 07:00 Basophils % 0.1 02/07/18 07:00 Absolute Neutrophils 9.23 k/cumm (1.2-6.7) H 02/07/18 07:00 Band Neutrophils 18.0 % 02/06/18 06:25 Absolute Lymphocytes 1.82 k/cumm (1.2-3.4) 02/07/18 07:00 Absolute Monocytes 0.30 k/cumm (0.11-0.7) 02/07/18 07:00 Absolute Eosinophils 0.00 k/cumm (0.0-0.7) 02/07/18 07:00 Absolute Basophils 0.01 k/cumm (0.0-0.2) 02/07/18 07:00 Metamyelocytes 1.0 % 02/06/18 06:25 Myelocytes 4.0 % 02/04/18 09:10 Nucleated RBCs 1 /100WBC 02/04/18 09:10 Differential Comment Manual differential 02/06/18 06:25 Atypical Lymphocytes 0 02/03/18 18:00 RBC Morphology See below 02/06/18 06:25 Polychromasia Present 02/03/18 18:00 Hypochromasia 1+ 02/04/18 09:10 Macrocytosis 1+ 02/06/18 06:25 PT 19.5 sec (9.3-10.8) H 02/04/18 06:23 INR 2.0 (1.0-3.5) 02/04/18 06:23 APTT 26.1 sec (21.0-31.4) 02/03/18 18:00 D-Dimer 2213 ng/mlFEU (<500) H 02/06/18 06:25 Sample Site Right radial 02/04/18 09:31 pCO2 42 mmHg (34-47) 02/04/18 09:31 pO2 86 mmHg (83-108) 02/04/18 09:31 O2 Saturation 97 % (94-98) 02/04/18 09:31 ABG pH 7.26 (7.35-7.45) L 02/04/18 09:31 ABG HCO3 19 mmol/L (22-28) L 02/04/18 09:31 ABG Total CO2 18 mmol/L (22-29) L 02/04/18 09:31 ABG Base Excess mmol/L (-3-3) 02/04/18 09:31 Oxygen Liter Flow Bipap L 02/03/18 20:47 FiO2 60 % 02/04/18 09:31 Sodium 153 mmol/L (136-145) H 02/07/18 07:00 Potassium 2.8 mmol/L (3.5-5.1) L* D 02/07/18 07:00 Chloride 117 mmol/L (98-107) H 02/07/18 07:00 Carbon Dioxide 24.5 mmol/L (21.0-32.0) 02/07/18 07:00 Anion Gap 11.5 mmol/L (3-11) H 02/07/18 07:00 BUN 74 mg/dL (7-18) H 02/07/18 07:00 Creatinine 1.70 mg/dL (0.55-1.02) H 02/07/18 07:00 Estimated GFR/1.73 m2 29.98 (mL/min/1.73m2) 02/07/18 07:00 Glucose 359 mg/dL (70-100) H 02/07/18 07:00 Hemoglobin A1c 10.0 % (4.5-6.2) H 02/04/18 09:10 Lactate 2.1 mmol/L (0.6-1.4) H 02/07/18 07:00 Calcium 8.8 mg/dL (8.5-10.1) 02/07/18 07:00 Magnesium 1.8 mg/dL (1.8-2.4) 02/06/18 06:25 Total Bilirubin 0.2 mg/dL (0.2-1.0) 02/07/18 07:00 AST 32 U/L (15-37) 02/07/18 07:00 ALT 34 U/L (12-78) 02/07/18 07:00 Alkaline Phosphatase 142 U/L (46-116) H 02/07/18 07:00 Ammonia 53 umol/L (11-32) H 02/03/18 19:55 Troponin I 0.14 ng/mL (0.00-0.06) H 02/04/18 09:10 C-Reactive Protein > 25.00 mg/dL (0.0-0.3) H 02/06/18 06:25 NT-Pro-B Natriuret Pep 2212 pg/mL (-299) H 02/03/18 19:55 Total Protein 5.6 g/dL (6.4-8.2) L 02/07/18 07:00 Albumin 1.2 g/dL (3.4-5.0) L 02/07/18 07:00 Lipase 98 U/L (73-393) 02/03/18 18:00 TSH 0.54 uIU/mL (0.358-3.74) 02/03/18 18:00 Urine Color Yellow (Yellow) 02/03/18 19:00 Urine Clarity Sl cloudy 02/03/18 19:00 Urine pH 5.5 (5-8) 02/03/18 19:00 Ur Specific [place] 1.010 (1.005-1.025) 02/03/18 19:00 Urine Protein Negative mg/dL (Negative) 02/03/18 19:00 Urine Ketones Negative mg/dL (Negative) 02/03/18 19:00 Urine Blood Moderate (Negative) H 02/03/18 19:00 Urine Nitrite Positive (Negative) H 02/03/18 19:00 Urine Bilirubin Negative (Negative) 02/03/18 19:00 Urine Urobilinogen 0.2 EU/dL (Up TO 0.2) 02/03/18 19:00 Ur Leukocyte Esterase Trace (Negative) H 02/03/18 19:00 Urine RBC >50 (0-2) H 02/03/18 19:00 Urine WBC 5-10 HPF (0-5) 02/03/18 19:00 Ur Epithelial Cells Few HPF (Negative) 02/03/18 19:00 Urine Crystals Negative HPF (Negative) 02/03/18 19:00 Urine Bacteria Many HPF (Negative) 02/03/18 19:00 Urine Casts Negative LPF (Negative) 02/03/18 19:00 Urine Mucus Negative (Negative) 02/03/18 19:00 Urine Other Negative (Negative) 02/03/18 19:00 Ur Culture Indicated? Yes 02/03/18 19:00 Ur Random Sodium 7 mmol/L 02/06/18 10:30 Urine Glucose >=1000 mg/dL (Negative) H 02/03/18 19:00 Total Valproic Acid 12.0 ug/mL (50-100) L 02/04/18 09:10 Path Cons Comment 02/04/18 09:10 Objective Narrative Objective Narrative: Blood Culture 02/07/18 Anaerobic bottle positive; gram stain shows GRAM POSITIVE COCCI. Gram stain results called to and read back from DARRON STEVENS RN at 0506 by [email or web address] Organism 1 GRAM POSITIVE COCCI Blood Culture 02/05/18 Anaerobic bottle positive; gram stain shows GRAM POSITIVE COCCI IN CLUSTERS. Gram stain results called to and read back from ELIUD ZAMBRANO RN at 0522 by [email or web address].[email or web address] 02/05/18 02/05/18 Aerobic bottle positive; gram stain shows GRAM POSITIVE COCCI.Gram stain results called to and read back from GARRY BLANKENSHIP RN IN ICU at 0758 by LAB.MIC Organism 1 STAPHYLOCOCCUS AUREUS Stap jose a RESULT Ciprofloxacin S Gentamicin S Daptomycin S Erythromycin S Oxacillin S Vancomycin S Blood Culture 02/06/18 Aerobic bottle positive; gram stain shows GRAM POSITIVE COCCI. Gram stain results called to and read back from DARRON STEVENS RN at 0350 by LAB.GENNY Organism 1 STAPHYLOCOCCUS AUREUS Stap jose a: Pending Catheter/Tip/Tube Preliminary Day 1 Result NO GROWTH 24 HOURS Day 2 Result NO GROWTH 48 HOURS Urine Culture Final 01/29/18-926 Day 1 Result ISOLATES BELOW ISOLATE 1 COLONY COUNT >100,000 COLONIES/ML ISOLATE 1 APPEARANCE Gram Negative Ramón ISOLATE 1 ACTION ID AND SUSCEPTIBILITY TO FOLLOW Day 2 Result ISOLATES BELOW ISOLATE 1 COLONY COUNT >100,000 COLONIES/ML ISOLATE 1 APPEARANCE Gram Negative Ramón ISOLATE 1 ACTION SUSCEPTIBILITY TO FOLLOW Day 3 Result ISOLATES BELOW ISOLATE 1 COLONY COUNT >100,000 COLONIES/ML ISOLATE 1 APPEARANCE Gram Negative Ramón ISOLATE 1 ACTION SUSCEPTIBILITY TO FOLLOW Extended-spectrum beta-lactamases (ESBL) are enzymes that confer resistance to most beta-lactam antibiotics, including penicillins, cephalosporins, and the monobactam aztreonam. Reference: UpToDate July 2012. 01/29/18 Called positive ESBL to Tammy Jasmine RN, catk [id number]. Organism 1 Escherichia coli COLONY COUNT >100,000 COLONIES/ML Esch coli RESULT Ampicillin R Ampicillin/Sulbactam R Cefazolin R Ceftazidime R CEFTRIAXONE R Ciprofloxacin R Gentamicin S Nitrofurantoin S Imipenem S Levofloxacin R Tobramycin R Trimethoprim/Sulfamethoxazole R Piperacillin/Tazobactam S EXAM: XR Chest, 1 View EXAM DATE/TIME: 02/06/2018 4:05 AM CLINICAL HISTORY: 67 years old, female; Signs and symptoms; Other: Increased resp rate, hupoxia TECHNIQUE: XR of the chest, 1 view. COMPARISON: CR XR PORTABLE CHEST AP 02/05/2018 12:33 PM FINDINGS: Lungs: Stable basilar pleural-parenchymal opacities. Pleural space: See above. Heart/Mediastinum: Unremarkable. No cardiomegaly. Bones/joints: Disc osteophyte of the spine. IMPRESSION: No significant interval change.
[2018-02-07] MEDS: MEROPENEM 1 GM in Normal Saline 100 ML IVPB (12:05)
[2018-02-07] MEDS: Pantoprazole 40 MG VIAL IVP (12:32)
[2018-02-07] MEDS: Normal Saline Flush 10 ML SYR IVP ×3 (12:34→19:14)
[2018-02-07 13:44] LABS: Sodium 153 mmol/L (136-145)
[2018-02-07 17:35] LABS: Osmolality, Urine 502 mos/kg (150-1150)
[2018-02-08] VITALS (39 sets, daily range): BP systolic 91–131; BP diastolic 39–82; PULSE 54–108; RESP 2–42; TEMP 36.6–37; O2SAT 91–99
[2018-02-08] MEDS: Hydrocortisone SOD SUC. 100 MG VIAL 25 MG IVP ×3 (00:12→17:49)
[2018-02-08] MEDS: MEROPENEM 1 GM in Normal Saline 100 ML IVPB ×2 (00:13→13:12)
[2018-02-08] MEDS: Normal Saline Flush 10 ML SYR IVP ×2 (00:13→12:51)
[2018-02-08] MEDS: Heparin 5,000 UNITS/ML VIAL 5000 UNITS SC ×2 (00:13→18:52)
[2018-02-08] MEDS: Insulin Aspart 300 UNITS/3 ML PEN SC ×4 (00:15→20:40)
[2018-02-08] MEDS: DEXTROSE 5%-WATER 1,000 ML 100 ML IV ×2 (00:24→10:49)
[2018-02-08] MEDS: Albuterol/Ipratropium 3 ML UPD VIAL UPD ×4 (02:55→21:03)
[2018-02-08 06:58] LABS: Lactate-non-spesis 2.1 mmol/L (0.6-1.4)
[2018-02-08 07:02] LABS: Abs Immature Grans 0.04 k/cumm (0.0-0.09); Absolute Basophil Count 0.01 k/cumm (0.0-0.2); Absolute Lymphocyte Count 1.46 k/cumm (1.2-3.4); Absolute Monocyte Count 0.33 k/cumm (0.11-0.7); Absolute Neutrophil Count 6.75 k/cumm (1.2-6.7); Basophils % 0.1; HCT 31.2 % (36.0-46.0); HGB 10.1 g/dL (12.0-15.5); Immature Grans % 0.5; Mean Corp. HGB Concentration 32.4 g/dL (32.0-36.0); Mean Corpuscular Hemoglobin 31.2 pg (27.0-33.0); Mean Corpuscular Volume 96.3 fL (80-95); Mean Platelet Volume 12.9 fL (8.0-11.0); Monocytes % 3.8; Neutrophils % 78.6; Platelet Count 113 x1000/uL (130-400); RBC 3.24 m/cumm (4.00-5.20); RBC Distribution Width 13.4 % (11.7-14.6); White Blood Cell Count 8.59 k/cumm (4.4-10.8)
[2018-02-08 07:22] LABS: Magnesium 1.8 mg/dL (1.8-2.4)
[2018-02-08 07:30] LABS: ALT 47 U/L (12-78); AST 48 U/L (15-37); Albumin 1.2 g/dL (3.4-5.0); Alkaline Phosphatase 166 U/L (46-116); Anion Gap 11.9 mmol/L (3-11); BUN 53 mg/dL (7-18); Bilirubin, Total 0.8 mg/dL (0.2-1.0); CO2 24.1 mmol/L (21.0-32.0); CREATININE 1.35 mg/dL (0.55-1.02); Calcium 8.4 mg/dL (8.5-10.1); Chloride 114 mmol/L (98-107); Estimated GFR 39.12 (mL/min/1.73m2); Glucose 242 mg/dL (70-100); Sodium 150 mmol/L (136-145); Total Protein 5.3 g/dL (6.4-8.2)
[2018-02-08 07:32] LABS: Potassium 2.7 mmol/L (3.5-5.1)
--- NOTE | 2018-02-08 08:30 | PT.INDS ---
Date of service: 02/08/18 Time of Service: 08:30 PT Notes PHYSICAL THERAPY NOTE 02/08/18 Dates of service: 02/05/18 Pt was seen for P.T eval and over weekend had decline in medical status. Discharge P.T services due to patient unresponsive and not able to activate participate in skilled interventions. Pt is non ambulatory, transfers to wheelchair only at baseline. If mobilization to chair is needed, nursing should use ira lift to chair for dependent transfers. Betty Harper PT
[2018-02-08] MEDS: Nystatin POWDER 60 GM JAR TP ×3 (09:00→22:17)
[2018-02-08] MEDS: Moxifloxacin 0.5% 3 ML BTL OU ×3 (09:00→21:18)
--- NOTE | 2018-02-08 09:45 | OT.INNT ---
Date of service: 02/08/18 Time of Service: 09:45 Occupational Therapy Notes 02/08/18 OT consult received and pts chart was reviewed. At this time due to decline in medical status pt is not appropriate for OT consult. Alondra Allen, OTR/L
[2018-02-08] MEDS: MAGNESIUM SULFATE 1 GM/100 ML BAG IVPB (10:06)
[2018-02-08] MEDS: POTASSIUM CHLORIDE 10 MEQ/100 ML BAG 100 MEQ IVPB ×8 (10:42→22:20)
--- NOTE | 2018-02-08 10:51 | W.PM.PROGNOT ---
Date of Service Date of service: 02/08/18 Time of Service: 10:52 Assessment and Plan (1) Sepsis: Current visit: Yes Status: Acute With MSSA bacteremia as well as ESBL E. Coli by UTI - Initially required pressor support and BiPAP. Ms. Hollis had been maintained on Vancomycin and Zosyn - given presence of ESBL E.Coli on urine cultures antibiotic therapy was changed to Meropenem on 02/06. Staph with sensitivities indicating MSSA necessitating change from Vancomycin to high dose Oxacillin. Continue Meropenem Day #3 and Oxacillin day #2. Continue to monitor cultures and repeat surveillance set today. Patient's blood cultures continue to be positive from both 02/03, 02/05, and 02/06 likely due to inadequate coverage of MSSA. Given negative TTE will very likely require a VILMA once more stable. (2) UTI (urinary tract infection): Current visit: Yes Status: Acute Treatment as above. Continue Meropenem Day #3 for ESBL E.Coli. (3) HCAP (healthcare-associated pneumonia): Current visit: Yes Status: Acute Treatment as above. (4) Diabetic hyperosmolar non-ketotic state: Current visit: Yes Status: Resolved In setting of infection and dehydration - appears resolved. (5) Elevated troponin I level: Current visit: Yes Status: Acute In setting of LUIS and sepsis, Likely mild demand with poor renal clearance. Monitor. No plans for further work-up at this time. (6) COPD (chronic obstructive pulmonary disease): Current visit: No Status: Chronic Acute exacerbation in setting of pneumonia. Initially required BiPAP. Continue steroids and wean. Also on nebs, and antibiotics as above. (7) Acute kidney injury (nontraumatic): Current visit: Yes Status: Acute With multiple acid-base disorder, due to sepsis, dehydration, and HHNK. Baseline creatinine is approximately 1.2, today it is down to 1.35 from initial value of 3.97. Continue IVF as below. Continue to hold on imaging as creatinine improving daily. Continue benítez catheter, changed 02/06. (8) Hypernatremia: Current visit: Yes Status: Acute Previously calculated Free water deficit of approximately 4 L - had originally improved slightly by numbers, but corrected sodium given elevated sugars was significantly higher at presentation (180's) - unfortunately despite early improvement became stagnant. D5 with Water was increased slightly on 02/06, now with evidence of gradual and gentle drop in sodium. Continue very close monitoring of sodium levels; previously received lasix, but discontinued. Monitor Sodium level very closely. (9) Toxic metabolic encephalopathy: Current visit: Yes Status: Acute In setting of baseline dementia, sepsis, initial HHNK, and continued and significant hypernatremia. Continue to monitor. Repeat swallow evaluation when able - however, if this persists, would need to consider tube feeding/PEG tube placement. (10) Dementia: Current visit: No Status: Chronic Resident of half-way. (11) DVT prophylaxis: Current visit: Yes Status: Acute Heparin SC (12) Advance directive on file: Current visit: Yes Status: Acute Guardianship in process of application with brother. Full code currently. May need a PEG tube. Subjective Interval history since last seen: 67-year-old female resident of the [facility] with a past medical history significant for dementia and schizophrenia, admitted on 02/03 from [facility] Emergency Department with a diagnosis of Sepsis with evidence of both UTI and Pneumonia. Ms. Hollis has a history of diabetes mellitus not currently on medical treatment, prior CVA by CT findings, prior history of Breast Ca, and early onset Dementia. She presented to the Emergency Department after being found unresponsive at the half-way with shallow respirations, hypotension, hyperglycemia, and tachycardia. She was also noted to be hypoxic by EMS. Initial evaluation in the ED was notable for significant leukocytosis, significant hyperglycemia, and profound hypernatremia. She also had evidence of an Acute Kidney Injury. Her Urinalysis was suggestive of UTI, and imaging showed evidence of a Left Lower Lobe infiltrate. The patient's lactate was also elevated. She was admitted to the ICU for sepsis. The patient initially required Pressor support and BiPap therapy, but had shown evidence of improvement as she is now off both. She does however experience slight hypoxia and worsening confusion overnight. Review of blood cultures with MSSA on 02/03, and staph aureus by repeat cultures on 02/05 and 02/06. Her central line has been removed, with tip culture without growth for 72 hours. She also has evidence of E.Coli on Urinary Culture. Her antibiotic regimen has been changed and now includes combination Oxacillin and Meropenem for coverage. Ms. Hollis has now been afebrile for 48 hours, with a TMax of 37.9 yesterday evening. This morning she appears more responsive than prior. No other events reported. Exam Narrative Exam Narrative: General: Appears older than stated age, laying in bed and now responsive to both verbal and tactile stimuli. Neck: Supple CV: Regular, nontachycardic at time of exam, no rubs murmurs or gallops. Pulmonary: Improved breath sounds with minimal diffuse rhonchi GI: +BS, Soft, does not appear to be tender, Not distended Vasc: No LE edema Objective Objective Clinical Data: Abnormal lab results 02/07/18 02/08/18 02/08/18 Range/Units 13:28 06:35 06:35 RBC 3.24 L (4.00-5.20) m/cumm Hgb 10.1 L (12.0-15.5) g/dL Hct 31.2 L (36.0-46.0) % MCV 96.3 H (80-95) fL Plt Count 113 L (130-400) x1000/uL MPV 12.9 H (8.0-11.0) fL Absolute Neutrophils 6.75 H (1.2-6.7) k/cumm Sodium 153 H 150 H (136-145) mmol/L Potassium 2.7 L* (3.5-5.1) mmol/L Chloride 114 H (98-107) mmol/L Anion Gap 11.9 H (3-11) mmol/L BUN 53 H D (7-18) mg/dL Creatinine 1.35 H (0.55-1.02) mg/dL Glucose 242 H D (70-100) mg/dL Lactate (0.6-1.4) mmol/L Calcium 8.4 L (8.5-10.1) mg/dL AST 48 H (15-37) U/L Alkaline Phosphatase 166 H (46-116) U/L Total Protein 5.3 L (6.4-8.2) g/dL Albumin 1.2 L (3.4-5.0) g/dL 02/08/18 Range/Units 06:35 RBC (4.00-5.20) m/cumm Hgb (12.0-15.5) g/dL Hct (36.0-46.0) % MCV (80-95) fL Plt Count (130-400) x1000/uL MPV (8.0-11.0) fL Absolute Neutrophils (1.2-6.7) k/cumm Sodium (136-145) mmol/L Potassium (3.5-5.1) mmol/L Chloride (98-107) mmol/L Anion Gap (3-11) mmol/L BUN (7-18) mg/dL Creatinine (0.55-1.02) mg/dL Glucose (70-100) mg/dL Lactate 2.1 H (0.6-1.4) mmol/L Calcium (8.5-10.1) mg/dL AST (15-37) U/L Alkaline Phosphatase (46-116) U/L Total Protein (6.4-8.2) g/dL Albumin (3.4-5.0) g/dL Vital Signs Temperature 37.0 C 02/08/18 08:35 Temperature Source Temporal Artery Scan 02/08/18 08:35 Pulse 96 H 02/08/18 10:00 Pulse 97 H 02/08/18 10:00 Respiratory Rate 28 H 02/08/18 10:00 Respiratory Effort 02/08/18 08:35 Respiratory Depth Shallow 02/08/18 08:35 Respiratory Pattern Normal 02/08/18 08:35 Blood Pressure 107/52 L 02/08/18 10:00 Blood Pressure Mean 65 02/08/18 10:00 Blood Pressure Position Supine 02/08/18 08:35 Pulse Oximetry 97 02/08/18 10:00 Oxygen Delivery Method Hi Flow System 02/08/18 08:48 Oxygen Flow Rate 35 02/08/18 08:48 Fraction of Inspired Oxygen (FIO2) 43 02/08/18 08:48 Pain Level 0 02/07/18 17:00 Intake & Output 02/07/18 02/07/18 02/08/18 11:59 23:59 11:59 Intake Total 710 / 710 1350 / 1350 1130 / 1130 Output Total 450 / 450 550 / 550 800 / 800 Balance 260 / 260 800 / 800 330 / 330 Weight 69.2 kg 70.8 kg Intake: IV 710 / 710 1350 / 1350 1130 / 1130 Oral 0 / 0 Output: Urine 450 / 450 550 / 550 800 / 800 Other: Urine Color Yellow Yellow Light Catrina Straw Urine Appearance Clear Clear Sediment Comment benítez cath in place and draining clear yellow urine. Benítez in place. Benítez intact and draining well. Laboratory Results WBC 8.59 k/cumm (4.4-10.8) 02/08/18 06:35 RBC 3.24 m/cumm (4.00-5.20) L 02/08/18 06:35 Hgb 10.1 g/dL (12.0-15.5) L 02/08/18 06:35 Hct 31.2 % (36.0-46.0) L 02/08/18 06:35 MCV 96.3 fL (80-95) H 02/08/18 06:35 MCH 31.2 pg (27.0-33.0) 02/08/18 06:35 MCHC 32.4 g/dL (32.0-36.0) 02/08/18 06:35 RDW 13.4 % (11.7-14.6) 02/08/18 06:35 Plt Count 113 x1000/uL (130-400) L 02/08/18 06:35 MPV 12.9 fL (8.0-11.0) H 02/08/18 06:35 Immature Gran % 0.5 02/08/18 06:35 Neutrophils % 78.6 02/08/18 06:35 Lymphocytes % 17.0 02/08/18 06:35 Monocytes % 3.8 02/08/18 06:35 Eosinophils % 0.0 02/08/18 06:35 Basophils % 0.1 02/08/18 06:35 Absolute Neutrophils 6.75 k/cumm (1.2-6.7) H 02/08/18 06:35 Band Neutrophils 18.0 % 02/06/18 06:25 Absolute Lymphocytes 1.46 k/cumm (1.2-3.4) 02/08/18 06:35 Absolute Monocytes 0.33 k/cumm (0.11-0.7) 02/08/18 06:35 Absolute Eosinophils 0.00 k/cumm (0.0-0.7) 02/08/18 06:35 Absolute Basophils 0.01 k/cumm (0.0-0.2) 02/08/18 06:35 Metamyelocytes 1.0 % 02/06/18 06:25 Myelocytes 4.0 % 02/04/18 09:10 Nucleated RBCs 1 /100WBC 02/04/18 09:10 Differential Comment Manual differential 02/06/18 06:25 Atypical Lymphocytes 0 02/03/18 18:00 RBC Morphology See below 02/06/18 06:25 Polychromasia Present 02/03/18 18:00 Hypochromasia 1+ 02/04/18 09:10 Macrocytosis 1+ 02/06/18 06:25 PT 19.5 sec (9.3-10.8) H 02/04/18 06:23 INR 2.0 (1.0-3.5) 02/04/18 06:23 APTT 26.1 sec (21.0-31.4) 02/03/18 18:00 D-Dimer 2213 ng/mlFEU (<500) H 02/06/18 06:25 Sample Site Right radial 12 09:31 pCO2 42 mmHg (34-47) 02/04/18 09:31 pO2 86 mmHg (83-108) 02/04/18 09:31 O2 Saturation 97 % (94-98) 02/04/18 09:31 ABG pH 7.26 (7.35-7.45) L 02/04/18 09:31 ABG HCO3 19 mmol/L (22-28) L 02/04/18 09:31 ABG Total CO2 18 mmol/L (22-29) L 02/04/18 09:31 ABG Base Excess mmol/L (-3-3) 02/04/18 09:31 Oxygen Liter Flow Bipap L 02/03/18 20:47 FiO2 60 % 02/04/18 09:31 Sodium 150 mmol/L (136-145) H 02/08/18 06:35 Potassium 2.7 mmol/L (3.5-5.1) L* 02/08/18 06:35 Chloride 114 mmol/L (98-107) H 02/08/18 06:35 Carbon Dioxide 24.1 mmol/L (21.0-32.0) 02/08/18 06:35 Anion Gap 11.9 mmol/L (3-11) H 02/08/18 06:35 BUN 53 mg/dL (7-18) H D 02/08/18 06:35 Creatinine 1.35 mg/dL (0.55-1.02) H 02/08/18 06:35 Estimated GFR/1.73 m2 39.12 (mL/min/1.73m2) 02/08/18 06:35 Glucose 242 mg/dL (70-100) H D 02/08/18 06:35 Hemoglobin A1c 10.0 % (4.5-6.2) H 02/04/18 09:10 Lactate 2.1 mmol/L (0.6-1.4) H 02/08/18 06:35 Calcium 8.4 mg/dL (8.5-10.1) L 02/08/18 06:35 Magnesium 1.8 mg/dL (1.8-2.4) 02/08/18 06:35 Total Bilirubin 0.8 mg/dL (0.2-1.0) 02/08/18 06:35 AST 48 U/L (15-37) H 02/08/18 06:35 ALT 47 U/L (12-78) 02/08/18 06:35 Alkaline Phosphatase 166 U/L (46-116) H 02/08/18 06:35 Ammonia 53 umol/L (11-32) H 02/03/18 19:55 Troponin I 0.14 ng/mL (0.00-0.06) H 02/04/18 09:10 C-Reactive Protein > 25.00 mg/dL (0.0-0.3) H 02/06/18 06:25 NT-Pro-B Natriuret Pep 2212 pg/mL (-299) H 02/03/18 19:55 Total Protein 5.3 g/dL (6.4-8.2) L 02/08/18 06:35 Albumin 1.2 g/dL (3.4-5.0) L 02/08/18 06:35 Lipase 98 U/L (73-393) 02/03/18 18:00 TSH 0.54 uIU/mL (0.358-3.74) 02/03/18 18:00 Urine Color Yellow (Yellow) 02/03/18 19:00 Urine Clarity Sl cloudy 02/03/18 19:00 Urine pH 5.5 (5-8) 02/03/18 19:00 Ur Specific [place] 1.010 (1.005-1.025) 02/03/18 19:00 Urine Protein Negative mg/dL (Negative) 02/03/18 19:00 Urine Ketones Negative mg/dL (Negative) 02/03/18 19:00 Urine Blood Moderate (Negative) H 02/03/18 19:00 Urine Nitrite Positive (Negative) H 02/03/18 19:00 Urine Bilirubin Negative (Negative) 02/03/18 19:00 Urine Urobilinogen 0.2 EU/dL (Up TO 0.2) 02/03/18 19:00 Ur Leukocyte Esterase Trace (Negative) H 02/03/18 19:00 Urine RBC >50 (0-2) H 02/03/18 19:00 Urine WBC 5-10 HPF (0-5) 02/03/18 19:00 Ur Epithelial Cells Few HPF (Negative) 02/03/18 19:00 Urine Crystals Negative HPF (Negative) 02/03/18 19:00 Urine Bacteria Many HPF (Negative) 02/03/18 19:00 Urine Casts Negative LPF (Negative) 02/03/18 19:00 Urine Mucus Negative (Negative) 02/03/18 19:00 Urine Other Negative (Negative) 02/03/18 19:00 Ur Culture Indicated? Yes 02/03/18 19:00 Urine Osmolality 502 mosm/Kg (150-1150) 02/06/18 10:30 Ur Random Sodium 7 mmol/L 02/06/18 10:30 Urine Glucose >=1000 mg/dL (Negative) H 02/03/18 19:00 Vancomycin Trough Cancelled 02/07/18 21:00 Total Valproic Acid 12.0 ug/mL (50-100) L 02/04/18 09:10 Path Cons Comment 02/04/18 09:10 Objective Narrative Objective Narrative: Blood Culture 02/07/18 Anaerobic bottle positive; gram stain shows GRAM POSITIVE COCCI. Gram stain results called to and read back from DARRON STEVENS RN at 0506 by LAB.[email or web address] 02/08/18 STAPHYLOCOCCUS AUREUS ISOLATED FROM ANAEROBIC BOTTLE: Reported STAPHYLOCOCCUS AUREUS results to and read back from GARRY WIGGINS RN IN ICU 02/08/18 at 0817 by LAB.CAMS Organism 1 STAPHYLOCOCCUS AUREUS Stap jose a: Pending
--- NOTE | 2018-02-08 12:14 | W.NUTCONSULT ---
Date of service: 02/08/18 Time of Service: 12:14 Nutritional Consult ASSESSMENT: Ms. Hollis has had a prolonged NPO status with anticipation of continued NPO. SUPPLY ROOM CLERK has recommended maintaining NPO status due to decreased alertness and high risk of aspiration. Nutrition consult for increased nutrition needs related to wounds placed as well. Ms. Hollis is 61. Her admission weight is 63 kg. It has gone up to 70.8 kg perhaps related to sepsis. Using her admission weight for calculations, her BMI is 29 kg/m2 which is WNL for her age. Her estimated energy needs are 1600 kcal/day (REE x 1.1 (Activity Factor) x 1.3 (stress factor) ). Her estimated protein needs are 83g-95g/day (1.3-1.5g/kg/day). Defer fluid needs given her condition, it is beyond my scope of practice. Ms. Hollis does diabetes included in her medical history. NUTRITIONAL DIAGNOSIS: Inability to take oral foods and fluids related to decreased alertness as evidenced by prolonged NPO status. INTERVENTION: If nutrition support is consistent with Ms. Hollis's wishes, would recommend the following tube feeding: Glucerna 1.2 taz @ goal rate of 55 ml/hr x 24 hours continuously. Start feeding at 30 ml per hour x 4 hours and increase by 15 ml/hr every four hours as tolerated. Add 1 packet of Theo (glutamine/arginine supplement for wound healing) to 200 ml flush twice per day or a regimen that works where the patient will get two packets of Theo per day for wound healing. Ms. Hollis may need additional free water as this regimen will provide 1400 ml of free water daily. If Ms. Hollis is eventually able to take PO, would recommend a carbohydrate counting, high protein nutrition therapy with Hteo twice daily. MONITORING AND EVALUATION: 1. Will monitor progress with this patient. 2. Will evaluate nutrition care plan ongoing and adjust as needed. Will remain available for recommendations for other nutrition support or oral nutrition. Thank you for the consult. Time Spent in Nutritional Counseling and Treatment: ARNOLD
--- NOTE | 2018-02-08 12:21 | PDOC.CMPRO ---
- If Service Date Differs Date of service: 02/08/18 Time of Service: 12:21 Care Management Progress Note S/O: Tri remains in the ICU-closely monitored at this time. She was lying in bed head turned to the side when CM in the room. Kalina remains in the ICU receiving IV antibiotics. She no longer requires Bipap and is able to receive oxygen support via high flow nasal canula. CM contacted the [facility] and provided update. Kalina's care was reviewed during interdisciplinary rounds she continues to require acute care and is not ready to return to the [facility] today. Kalina's blood cultures are positive for staff aureus anticipate need for group home antibiotics. Once patient is stable she will need a VILMA, speech consult. Per provider patient may need a temporary feeding tube, CM left a voicemail for Brother Miguelito to review patients wishes in regards to placement of Peg tube. A: Kalina is a 67 year old female admitted to [facility] from the [facility] on 02/03/18 with Hypolemic shock: HHNK: Pneumonia P: Tri continues to receive care in the ICU, is being treated with IV Medications and fluids and her labs are being closely monitored. She continues to require oxygen support.CM to continue to provide support to patient, family and care team. Tri will return to the [facility] when medically ready via W/C van vs EMS.
[2018-02-08] MEDS: Insulin Glargine 300 UNITS/3 ML PEN 20 UNITS SC ×2 (12:24→21:28)
--- NOTE | 2018-02-08 12:38 | NS.NUTBLAN_ITS ---
Date of service: 02/08/18 Time of Service: 12:14 Nutritional Consult ASSESSMENT: Ms. Hollis has had a prolonged NPO status with anticipation of continued NPO. LOFTER has recommended maintaining NPO status due to decreased alertness and high risk of aspiration. Nutrition consult for increased nutrition needs related to wounds placed as well. Ms. Hollis is 61. Her admission weight is 63 kg. It has gone up to 70.8 kg perhaps related to sepsis. Using her admission weight for calculations, her BMI is 29 kg/m2 which is WNL for her age. Her estimated energy needs are 1600 kcal/day (REE x 1.1 (Activity Factor) x 1.3 (stress factor ) ). Her estimated protein needs are 83g-95g/day (1.3-1.5g/kg/day). Defer fluid needs given her condition, it is beyond my scope of practice. Ms. Hollis does diabetes included in her medical history. NUTRITIONAL DIAGNOSIS: Inability to take oral foods and fluids related to decreased alertness as evidenced by prolonged NPO status. INTERVENTION: If nutrition support is consistent with Ms. Hollis's wishes, would recommend the following tube feeding: Glucerna 1.2 taz @ goal rate of 55 ml/hr x 24 hours continuously. Start feeding at 30 ml per hour x 4 hours and increase by 15 ml/hr every four hours as tolerated. Add 1 packet of Theo (glutamine/arginine supplement for wound healing) to 200 ml flush twice per day or a regimen that works where the patient will get two packets of Theo per day for wound healing. Ms. Hollis may need additional free water as this regimen will provide 1400 ml of free water daily. If Ms. Hollis is eventually able to take PO, would recommend a carbohydrate counting, high protein nutrition therapy with Theo twice daily. MONITORING AND EVALUATION: 1. Will monitor progress with this patient. 2. Will evaluate nutrition care plan ongoing and adjust as needed. Will remain available for recommendations for other nutrition support or oral nutrition. Thank you for the consult. Time Spent in Nutritional Counseling and Treatment: ARNOLD
--- NOTE | 2018-02-08 12:40 | CMPROGNOTE_ITS ---
- If Service Date Differs Date of service: 02/08/18 Time of Service: 12:21 Care Management Progress Note S/O: Tri remains in the ICU-closely monitored at this time. She was lying in bed head turned to the side when CM in the room. Kalina remains in the ICU receiving IV antibiotics. She no longer requires Bipap and is able to receive oxygen support via high flow nasal canula. CM contacted the [facility] and provided update. Kalina's care was reviewed during interdisciplinary rounds she continues to require acute care and is not ready to return to the [facility] today. Kalina's blood cultures are positive for staff aureus anticipate need for half-way antibiotics. Once patient is stable she will need a VILMA, speech consult. Per provider patient may need a temporary feeding tube, CM left a voicemail for Brother Miguelito to review patients wishes in regards to placement of Peg tube. A: Kalina is a 67 year old female admitted to [facility] from the [facility] on 02/03/18 with Hypolemic shock: HHNK: Pneumonia P: Tri continues to receive care in the ICU, is being treated with IV Medications and fluids and her labs are being closely monitored. She continues to require oxygen support.CM to continue to provide support to patient, family and care team. Tri will return to the [facility] when medically ready via W/C van vs EMS.
[2018-02-08] MEDS: Pantoprazole 40 MG VIAL IVP (12:53)
--- NOTE | 2018-02-08 14:51 | CHAPLAIN ---
Kalina was wasn't responding to conversation when I visited and gave her a prayer shawl. Her nurse, Diana Santana will let me know when Kalina's brother arrives.
[2018-02-09] VITALS (64 sets, daily range): BP systolic 66–135; BP diastolic 31–82; PULSE 82–140; RESP 2–109; TEMP 34–36.9; O2SAT 82–97
[2018-02-09] MEDS: MEROPENEM 1 GM in Normal Saline 100 ML IVPB ×2 (01:09→12:34)
[2018-02-09] MEDS: Albuterol/Ipratropium 3 ML UPD VIAL UPD ×3 (01:12→14:36)
[2018-02-09] MEDS: Heparin 5,000 UNITS/ML VIAL 5000 UNITS SC ×3 (01:13→15:19)
[2018-02-09] MEDS: DEXTROSE 5%-WATER 1,000 ML 100 ML IV (05:02)
[2018-02-09] MEDS: Hydrocortisone SOD SUC. 100 MG VIAL 25 MG IVP ×2 (05:07→17:33)
--- NOTE | 2018-02-09 06:49 | DI.RAD_ITS ---
SYMPTOM/DIAGNOSIS: DYSPNEA PORTABLE CHEST: The heart size is unchanged. Again noted are bilateral effusions and increased basilar densities. There has been no definite change.
[2018-02-09] MEDS: Furosemide 40 MG/4 ML VIAL IVP (07:06)
[2018-02-09 07:26] LABS: Abs Immature Grans 0.13 k/cumm (0.0-0.09); HCT 37.7 % (36.0-46.0); HGB 12.4 g/dL (12.0-15.5); Mean Corp. HGB Concentration 32.9 g/dL (32.0-36.0); Mean Corpuscular Volume 94.3 fL (80-95); Mean Platelet Volume 13.4 fL (8.0-11.0); RBC Distribution Width 13.8 % (11.7-14.6); White Blood Cell Count 20.13 k/cumm (4.4-10.8)
[2018-02-09 07:39] LABS: HCO3 20 mmol/L (22-28); pCO2 30 mmHg (34-47); pH 7.43 (7.35-7.45); pO2 66 mmHg (83-108); sO2 94 % (94-98); tCO2 18 mmol/L (22-29)
[2018-02-09 07:41] LABS: FIO2L NIV L; Site Right Radial
[2018-02-09 07:42] LABS: FIO2 70 %
--- NOTE | 2018-02-09 07:42 | DI.VRAD_ITS ---
EXAM: XR Chest, 1 View EXAM DATE/TIME: 02/09/2018 6:51 AM CLINICAL HISTORY: 67 years old, female; Signs and symptoms; Dyspnea TECHNIQUE: XR of the chest, 1 view. COMPARISON: SC XR PORTABLE CHEST AP 02/06/2018 4:22 AM FINDINGS: Lungs: Right basilar opacity may reflect pneumonia/consolidation versus atelectasis. Pleural space: Small left-sided pleural effusion. Heart/Mediastinum: Unremarkable. No cardiomegaly. Bones/joints: Unremarkable. IMPRESSION: 1. Right basilar opacity may reflect pneumonia/consolidation versus atelectasis. 2. Small left-sided pleural effusion. Dictated and Authenticated by: Ed Esparza MD. Ordering:[facility] CONCEPCION GORDON MD
[2018-02-09 07:48] LABS: ALT 47 U/L (12-78); AST 34 U/L (15-37); Albumin 1.4 g/dL (3.4-5.0); Alkaline Phosphatase 249 U/L (46-116); BUN 37 mg/dL (7-18); Bilirubin, Total 0.8 mg/dL (0.2-1.0); CREATININE 1.23 mg/dL (0.55-1.02); Calcium 8.8 mg/dL (8.5-10.1); Chloride 111 mmol/L (98-107); Estimated GFR 43.55 (mL/min/1.73m2); Glucose 97 mg/dL (70-100); NT-proBNP 2547 pg/mL; Potassium 3.4 mmol/L (3.5-5.1); Sodium 147 mmol/L (136-145); Total Protein 6.5 g/dL (6.4-8.2)
[2018-02-09 07:49] LABS: Magnesium 1.9 mg/dL (1.8-2.4)
[2018-02-09 07:52] LABS: Absolute Lymphocyte Count 2.82 k/cumm (1.2-3.4); Absolute Neutrophil Count 16.51 k/cumm (1.2-6.7); Atypical Lymphocytes % 4; Diff Comment Manual Differential
[2018-02-09 07:53] LABS: Platelet Count 311 x1000/uL (130-400); Polychromasia Present
[2018-02-09 07:54] LABS: Poikilocytes 2+
--- NOTE | 2018-02-09 10:00 | DI.CT_ITS ---
SYMPTOM/DIAGNOSIS: RULE OUT PE, ASPIRATION CHEST CT FOR PULMONARY EMBOLISM: CT angiography was performed with multi slice acquisition and multi planar and 3D reconstruction. Comparison is made with chest CT dated 03 Oct 2016. The patient had difficulty breath-holding and there is respiratory motion. There is mild artifact from the patient's arms positioned at her sides. Pulmonary arteries are well opacified with IV contrast. No pulmonary emboli are identified. There is no evidence of aortic dissection. There is severe bilateral lower lobe consolidation, left greater than right. Patchy infiltrates are also seen in the inferoposterior portions of both upper lobes, left greater than right. There is some underlying cystic changes within the posterior left upper lobe. There is a more solid appearing mass seen in the posterior right upper lobe exactly adjacent to the fissure. This was noted on the 2017 exam. There are several cystic appearing nodules in the right upper lobe and a few scattered in the left upper lobe. There is wall thickening of the mid-esophagus vs adjacent adenopathy. There also appears to be some wall thickening of the distal esophagus. Left ventricular and left atrial enlargement and mild dilatation of the ascending aorta are noted. Degenerative changes and scoliosis are seen in the thoracic spine. No definite lytic or blastic lesions are identified. The upper abdomen is limited due to motion. The pancreas is atrophic. The spleen is normal in size. The gallbladder is not well evaluated due to motion. The kidneys are grossly normal. IMPRESSION: No evidence of pulmonary emboli. Significant bilateral lower lobe as well as posterior upper lobe consolidation. Cystic nodules in the upper lobes which could be secondary to infection vs metastatic disease. A right upper lobe mass is seen which was identified on the 2017 exam.
[2018-02-09] MEDS: Insulin Glargine 300 UNITS/3 ML PEN 20 UNITS SC (10:08)
[2018-02-09] MEDS: Moxifloxacin 0.5% 3 ML BTL OU ×2 (10:09→15:15)
[2018-02-09] MEDS: Nystatin POWDER 60 GM JAR TP ×2 (11:32→14:20)
--- NOTE | 2018-02-09 12:30 | CMPROGNOTE_ITS ---
- If Service Date Differs Date of service: 02/09/18 Time of Service: 12:13 Care Management Progress Note S/O: Tri was reviewed at interdisciplinary rounds, CM met with primary nurse and contacted Brother Miguelito via phone at [phone]. Miguelito does not feel his sister would want a Peg tube. He is in agreement with palliative consult. CM attempted to meet with patient however she is not able engaged with CM at this time. CM updated primary nurse, contacted palliative care and requested consult from provider. Tri continues to be an ICU patient, today she is tachycardia, and has returned to BIPAP support. She will have a CT scan today to rule out PE. She remains on IV antibiotics for bactermia. CM to coordinate palliative meeting, patients brother is currently her listed DPOA. Tri is not able to verbalize her wishes at this time there is a advance directive on file from 2014. A: Tri is an 67 year old female admitted to the ICU with septic shock and bacteremia. She is lives at the [facility] and has a history of schizophrenias and dementia. P: Plan will be for Tri to return to [facility] when medically stable per provider. She is currently ICU status anticipate no change today. Palliative consult to be coordinated by CM.
[2018-02-09] MEDS: Normal Saline Flush 10 ML SYR IVP ×4 (12:49→20:11)
[2018-02-09] MEDS: Insulin Aspart 300 UNITS/3 ML PEN SC ×2 (12:49→17:33)
[2018-02-09] MEDS: Pantoprazole 40 MG VIAL IVP (12:49)
--- NOTE | 2018-02-09 15:22 | DM INPTCON_ITS ---
Date of service: 02/09/18 Time of Service: 15:05 Diabetes Inpatient Consult DESCRIPTION/ASSESSMENT: Appreciate diabetes consult for Kalina Hollis who is hospitalized with septic shock. She is currently NPO needing a PEG tube if eating is desired. BMI 29 A1c 10 Blood sugars here initially elevated frequently in 300s, however today blood sugar is at inpatient glycemic goal of less than 180mg/dl. She is managed with 20u Glargine twice daily and insulin correction at the sensitive level q 6 hours. Kalina resides at [facility] does not make diabetes decisions independently. At this time she is not visited. INTERVENTION: No intervention warranted at this time. PLAN: Will follow blood sugars and f/u as needed Time Spent in Nutritional Counseling and Treatment: ARNOLD
--- NOTE | 2018-02-09 16:55 | PGE_ITS ---
Date of Service Date of service: 02/09/18 Time of Service: 16:56 Assessment and Plan (1) Sepsis: Current visit: Yes Status: Acute With MSSA bacteremia as well as ESBL E. Coli by UTI - Initially required pressor support and BiPAP. Ms. Hollis had been maintained on Vancomycin and Zosyn - given presence of ESBL E.Coli on urine cultures antibiotic therapy was changed to Meropenem on 02/06. Staph with sensitivities indicating MSSA necessitating change from Vancomycin to high dose Oxacillin. Continue Meropenem Day #4 and Oxacillin day #3. Continue to monitor cultures and repeat surveillance sets until clear. Patient's blood cultures continue to be positive from both 02/03, 02/05, and 02/06 likely due to inadequate coverage of MSSA previously with Vanc. Given negative TTE will very likely require a VILMA once more stable. Of note - suspect that nocturnal hypoxia which resolves during the day may be due to silent aspiration events. Patient is already on adequate coverage with Meropenem, is MRSA negative by swab, and under treatment with Oxacillin for MSSA coverage. Hypoxia potentially due to chemical pneumonitis. No evidence of PE by CT Scan performed today. Dense infiltrates in setting of likely MSSA Pneumonia. (2) UTI (urinary tract infection): Current visit: Yes Status: Acute Treatment as above. Continue Meropenem Day #4 for ESBL E.Coli. (3) HCAP (healthcare-associated pneumonia): Current visit: Yes Status: Acute Treatment as above. (4) Diabetic hyperosmolar non-ketotic state: Current visit: Yes Status: Resolved In setting of infection and dehydration - appears resolved. (5) Elevated troponin I level: Current visit: Yes Status: Acute In setting of LUIS and sepsis, Likely mild demand with poor renal clearance. Monitor. No plans for further work-up at this time. (6) COPD (chronic obstructive pulmonary disease): Current visit: No Status: Chronic Acute exacerbation in setting of pneumonia. Initially required BiPAP. Continue steroids and wean. Also on nebs, and antibiotics as above. (7) Acute kidney injury (nontraumatic): Current visit: Yes Status: Acute With multiple acid-base disorder, due to sepsis, dehydration, and HHNK. Baseline creatinine is approximately 1.2, today it is down to 1.23 from initial value of 3.97. Continue IVF as below. Continue to hold on imaging as creatinine improving daily. Continue benítez catheter, changed 02/06. (8) Hypernatremia: Current visit: Yes Status: Acute Previously calculated Free water deficit of approximately 4 L - had originally improved slightly by numbers, but corrected sodium given elevated sugars was significantly higher at presentation (180's) - unfortunately despite early improvement became stagnant. D5 with Water was increased slightly on 02/06 , now with evidence of gradual and gentle drop in sodium. Continue very close monitoring of sodium levels; previously received lasix, but discontinued. Monitor Sodium level very closely. (9) Toxic metabolic encephalopathy: Current visit: Yes Status: Acute In setting of baseline dementia, sepsis, initial HHNK, and continued and significant hypernatremia. Continue to monitor. Repeat swallow evaluation when able - however, if this persists, would need to consider tube feeding/PEG tube placement. (10) Dementia: Current visit: No Status: Chronic [facility]. (11) DVT prophylaxis: Current visit: Yes Status: Acute Heparin SC (12) Advance directive on file: Current visit: Yes Status: Acute Guardianship in process of application with brother. Full code currently. May need a PEG tube. Palliative care to meet with patient's DPOA tonight. Subjective Interval history since last seen: 67-year-old female resident of the [facility] with a past medical history significant for dementia and schizophrenia, admitted on 02/03 from [facility] Emergency Department with a diagnosis of Sepsis with evidence of both UTI and Pneumonia. Ms. Hollis has a history of diabetes mellitus not currently on medical treatment, prior CVA by CT findings, prior history of Breast Ca, and early onset Dementia. She presented to the Emergency Department after [facility] with shallow respirations, hypotension, hyperglycemia, and tachycardia. She was also noted to be hypoxic by EMS. Initial evaluation in the ED was notable for significant leukocytosis, significant hyperglycemia, and profound hypernatremia. She also had evidence of an Acute Kidney Injury. Her Urinalysis was suggestive of UTI, and imaging showed evidence of a Left Lower Lobe infiltrate. The patient's lactate was also elevated. She was admitted to the ICU for sepsis. The patient initially required Pressor support and BiPap therapy, but had shown evidence of improvement as had been off both. She has however experienced slight hypoxia and worsening confusion overnight, and early this morning she became hypoxic, tachycardic, and hypotensive. She was administered IV Lasix by the covering physician. CT of her chest was obtained showing no evidence of PE, and with significant b/l Lower lobe and posterior upper lobe consolidations - as per conversation with radiology while not greatly correlating with earlier Chest Xrays, there is no significant difference than earlier imaging. Review of blood cultures with MSSA on 02/03, and staph aureus by repeat cultures on 02/05. Again with MSSA on 02/06, with repeat blood cultures yesterday also pending. Her central line has been removed, with tip culture without growth for 96 hours. She also has evidence of E.Coli on Urinary Culture. Her antibiotic regimen has been changed and now includes combination Oxacillin and Meropenem for coverage. Ms. Hollis has now been afebrile for 76 hours, with a TMax of 37.9 on the evening of the . No other events reported. Exam Narrative Exam Narrative: General: Appears older than stated age, laying in bed and minimally responsive to both verbal and tactile stimuli. Neck: Supple CV: Regular, tachycardic at time of exam, no rubs murmurs or gallops. Pulmonary: Improved breath sounds with minimal but diffuse rhonchi GI: +BS, Soft, does not appear to be tender, Not distended Vasc: No LE edema Objective Objective Clinical Data: Abnormal lab results 02/09/18 02/09/18 02/09/18 Range/Units 06:12 06:12 07:30 WBC 20.13 H D (4.4-10.8) k/cumm MPV 13.4 H (8.0-11.0) fL Absolute Neutrophils 16.51 H (1.2-6.7) k/cumm pCO2 30 L (34-47) mmHg pO2 66 L (83-108) mmHg ABG HCO3 20 L (22-28) mmol/L ABG Total CO2 18 L (22-29) mmol/L Sodium 147 H (136-145) mmol/L Potassium 3.4 L (3.5-5.1) mmol/L Chloride 111 H (98-107) mmol/L Anion Gap 14.0 H (3-11) mmol/L BUN 37 H D (7-18) mg/dL Creatinine 1.23 H (0.55-1.02) mg/dL Alkaline Phosphatase 249 H (46-116) U/L NT-Pro-B Natriuret Pep 2547 H ( - 299) pg/mL Albumin 1.4 L (3.4-5.0) g/dL Vital Signs Temperature 35.6 C L 02/09/18 15:39 Temperature Source Temporal Artery Scan 02/09/18 15:39 Pulse 103 H 02/09/18 15:31 Pulse 103 H 02/09/18 15:31 Respiratory Rate 27 H 02/09/18 15:31 Respiratory Effort 02/09/18 15:39 Respiratory Depth Normal 02/09/18 15:39 Respiratory Pattern Normal 02/09/18 15:39 Blood Pressure 88/57 L 02/09/18 15:31 Blood Pressure Mean 66 02/09/18 15:31 Blood Pressure Position Right Lateral 02/09/18 03:00 Pulse Oximetry 90 L 02/09/18 16:15 Oxygen Delivery Method Nasal Cannula 02/09/18 16:15 Oxygen Flow Rate 15 02/09/18 16:15 Fraction of Inspired Oxygen (FIO2) 50 02/09/18 09:15 Pain Level 0 02/09/18 03:00 Intake & Output 02/08/18 02/09/18 02/09/18 23:59 11:59 23:59 Intake Total 1003.334 / 1003.334 230 / 230 230 / 230 Output Total 850 / 850 2200 / 2200 1000 / 1000 Balance 153.334 / 153.334 -1970 / -1970 -770 / -770 Weight 70.5 kg Intake: IV 1003.334 / 1003.334 230 / 230 230 / 230 Output: Urine 850 / 850 2200 / 2200 1000 / 1000 Other: Urine Color Straw Straw Yellow Urine Appearance Clear Cloudy Cloudy Comment Benítez intact and draining well. Benítez intact and draining well. Benítez intact and draining well. Stool Occult Blood Negative Stool Size Smear Moderate Stool Characteristics Soft Formed Voiding Methods Indwelling Catheter Laboratory Results WBC 20.13 k/cumm (4.4-10.8) H D 02/09/18 06:12 RBC 4.00 m/cumm (4.00-5.20) 02/09/18 06:12 Hgb 12.4 g/dL (12.0-15.5) D 02/09/18 06:12 Hct 37.7 % (36.0-46.0) D 02/09/18 06:12 MCV 94.3 fL (80-95) 02/09/18 06:12 MCH 31.0 pg (27.0-33.0) 02/09/18 06:12 MCHC 32.9 g/dL (32.0-36.0) 02/09/18 06:12 RDW 13.8 % (11.7-14.6) 02/09/18 06:12 Plt Count 311 x1000/uL (130-400) D 02/09/18 06:12 MPV 13.4 fL (8.0-11.0) H 02/09/18 06:12 Immature Gran % 0.0 02/09/18 06:12 Neutrophils % 80.0 02/09/18 06:12 Lymphocytes % 10.0 02/09/18 06:12 Monocytes % 3.0 02/09/18 06:12 Eosinophils % 1.0 02/09/18 06:12 Basophils % 0.0 02/09/18 06:12 Absolute Neutrophils 16.51 k/cumm (1.2-6.7) H 02/09/18 06:12 Band Neutrophils 2.0 % 02/09/18 06:12 Absolute Lymphocytes 2.82 k/cumm (1.2-3.4) 02/09/18 06:12 Absolute Monocytes 0.60 k/cumm (0.11-0.7) 02/09/18 06:12 Absolute Eosinophils 0.20 k/cumm (0.0-0.7) 02/09/18 06:12 Absolute Basophils 0.00 k/cumm (0.0-0.2) 02/09/18 06:12 Metamyelocytes 1.0 % 02/06/18 06:25 Myelocytes 4.0 % 02/04/18 09:10 Nucleated RBCs 1 /100WBC 02/04/18 09:10 Differential Comment Manual differential 02/09/18 06:12 Atypical Lymphocytes 4 02/09/18 06:12 RBC Morphology See below 02/09/18 06:12 Polychromasia Present 02/09/18 06:12 Hypochromasia 1+ 02/04/18 09:10 Poikilocytosis 2+ 02/09/18 06:12 Macrocytosis 1+ 02/06/18 06:25 PT 19.5 sec (9.3-10.8) H 02/04/18 06:23 INR 2.0 (1.0-3.5) 02/04/18 06:23 APTT 26.1 sec (21.0-31.4) 02/03/18 18:00 D-Dimer 2213 ng/mlFEU (<500) H 02/06/18 06:25 Sample Site Right radial 02/09/18 07:30 pCO2 30 mmHg (34-47) L 02/09/18 07:30 pO2 66 mmHg (83-108) L 02/09/18 07:30 O2 Saturation 94 % (94-98) 02/09/18 07:30 ABG pH 7.43 (7.35-7.45) 02/09/18 07:30 ABG HCO3 20 mmol/L (22-28) L 02/09/18 07:30 ABG Total CO2 18 mmol/L (22-29) L 02/09/18 07:30 ABG Base Excess mmol/L (-3-3) 02/09/18 07:30 Oxygen Liter Flow Niv L 02/09/18 07:30 FiO2 70 % 02/09/18 07:30 Sodium 147 mmol/L (136-145) H 02/09/18 06:12 Potassium 3.4 mmol/L (3.5-5.1) L 02/09/18 06:12 Chloride 111 mmol/L (98-107) H 02/09/18 06:12 Carbon Dioxide 22.0 mmol/L (21.0-32.0) 02/09/18 06:12 Anion Gap 14.0 mmol/L (3-11) H 02/09/18 06:12 BUN 37 mg/dL (7-18) H D 02/09/18 06:12 Creatinine 1.23 mg/dL (0.55-1.02) H 02/09/18 06:12 Estimated GFR/1.73 m2 43.55 (mL/min/1.73m2) 02/09/18 06:12 Glucose 97 mg/dL (70-100) D 02/09/18 06:12 Hemoglobin A1c 10.0 % (4.5-6.2) H 02/04/18 09:10 Lactate 2.1 mmol/L (0.6-1.4) H 02/08/18 06:35 Calcium 8.8 mg/dL (8.5-10.1) 02/09/18 06:12 Magnesium 1.9 mg/dL (1.8-2.4) 02/09/18 06:12 Total Bilirubin 0.8 mg/dL (0.2-1.0) 02/09/18 06:12 AST 34 U/L (15-37) 02/09/18 06:12 ALT 47 U/L (12-78) 02/09/18 06:12 Alkaline Phosphatase 249 U/L (46-116) H 02/09/18 06:12 Ammonia 53 umol/L (11-32) H 02/03/18 19:55 Troponin I 0.14 ng/mL (0.00-0.06) H 02/04/18 09:10 C-Reactive Protein > 25.00 mg/dL (0.0-0.3) H 02/06/18 06:25 NT-Pro-B Natriuret Pep 2547 pg/mL (-299) H 02/09/18 06:12 Total Protein 6.5 g/dL (6.4-8.2) 02/09/18 06:12 Albumin 1.4 g/dL (3.4-5.0) L 02/09/18 06:12 Lipase 98 U/L (73-393) 02/03/18 18:00 TSH 0.54 uIU/mL (0.358-3.74) 02/03/18 18:00 Urine Color Yellow (Yellow) 02/03/18 19:00 Urine Clarity Sl cloudy 02/03/18 19:00 Urine pH 5.5 (5-8) 02/03/18 19:00 Ur Specific [place] 1.010 (1.005-1.025) 02/03/18 19:00 Urine Protein Negative mg/dL (Negative) 02/03/18 19:00 Urine Ketones Negative mg/dL (Negative) 02/03/18 19:00 Urine Blood Moderate (Negative) H 02/03/18 19:00 Urine Nitrite Positive (Negative) H 02/03/18 19:00 Urine Bilirubin Negative (Negative) 02/03/18 19:00 Urine Urobilinogen 0.2 EU/dL (Up TO 0.2) 02/03/18 19:00 Ur Leukocyte Esterase Trace (Negative) H 02/03/18 19:00 Urine RBC >50 (0-2) H 02/03/18 19:00 Urine WBC 5-10 HPF (0-5) 02/03/18 19:00 Ur Epithelial Cells Few HPF (Negative) 02/03/18 19:00 Urine Crystals Negative HPF (Negative) 02/03/18 19:00 Urine Bacteria Many HPF (Negative) 02/03/18 19:00 Urine Casts Negative LPF (Negative) 02/03/18 19:00 Urine Mucus Negative (Negative) 02/03/18 19:00 Urine Other Negative (Negative) 02/03/18 19:00 Ur Culture Indicated? Yes 02/03/18 19:00 Urine Osmolality 502 mosm/Kg (150-1150) 02/06/18 10:30 Ur Random Sodium 7 mmol/L 02/06/18 10:30 Urine Glucose >=1000 mg/dL (Negative) H 02/03/18 19:00 Vancomycin Trough Cancelled 02/07/18 21:00 Total Valproic Acid 12.0 ug/mL (50-100) L 02/04/18 09:10 Path Cons Comment 02/04/18 09:10
--- NOTE | 2018-02-09 18:44 | PCNE_ITS ---
Date of service: 02/09/18 Time of Service: 18:41 History of Present Illness Chief Complaint: Overwhelming sepsis with consolidated pneumonia and EBLS urinary infection Consults Consult date: 02/09/18 Requesting physician: Abel Hess Assessment and Plan (1) Sepsis: Current visit: Yes Status: Acute Her brother, Miguelito, is in the room as well as nursing and for some of the time Dr March. Miguelito's plan was to obtain guardianship tomorrow when the courts open. He does not want to see his sister suffer like this. He knows her life has been bad for 20 plus years. He thinks she is trying to . He hears the rattle and knows its meaning. He doesn't want her to have a feeding tube placed. We discussed how feeding tubes do not improve the life of a person with dementia. She would mostlikely aspirate even with the tube as she has been doing nightly for the last several days. He agaiin feels her spirit is leaving and that she is trying to . I discussed the patient with Dr March. She has multiorgan failure at this time: lung consolidation from pneumonia, UTI, hypernatremia, etc. It is unlikely that she will survive this event. We contacted [place] [facility] [employer] - she is not under their care. Her brother felt it was in her best interest to keep her comfortable and allow natural . Dr March felt CPR was futile. I agree. After discussion with her DPOA, she was made DNR/DNI . I spoke with Dr Barcenas about the change in her care to Comfort care per her DPOA? s thoughts that Kalina would not want aggressive care. Dr Barcenas asked that I write the orders for comfort care. Review of Systems Review of Systems Patient unable to give any information. PFSH COPD (chronic obstructive pulmonary disease) (Chronic) Essential hypertension (Chronic) Breast cancer (Inactive) Alzheimer's dementia (Chronic) Diabetes (Chronic) Schizophrenia (Chronic) History of ankle surgery (Acute) Medical History Alzheimer's dementia (Chronic) Diabetes (Chronic) Schizophrenia (Chronic) Social History Smoking/Tobacco Use Status: Former Tobacco Use Surgical History History of ankle surgery (Acute) Social History Smoking/Tobacco Use Status: Former Tobacco Use Exam Narrative Exam Narrative: Pt is a 67 year old woman well known to me. She has lived at the [facility]. I have had social work try contacting the [facility] on multiple occasions to obtain guardianship as her relatives did not feel comfortable in this role. Due to inaction, she was a full code. Her son Wilver and brother Miguelito are her DPOA's Her life at the [facility] was not pleasant. She was usually angry, often hitting staff, rarely allowed examination. She moved to the [facility] because the assisted she was at could no longer handle her behaviors. Her behaviors were escalating at the [facility]. I had done labwork and urine. She was treated for a UTI. Kalina is now in the hospital in the ICU. She is on high flow oxygen. Her recent CT scan showed consolidation in her lungs. She is thought to be aspirating nightly. She does have a UTI. I was asked to do a Palliative Consullt to determine goals . She is lying in bed she does not open her eyes. Her hands are edematous. She is struggling to breath. Her oxygen saturation with a high flow oxygen is in the low 90s. Her forehead is furrowed. She looks very uncomfortable. Her blood pressure is soft but stable. (Nursing notes all of the exact details) Eyes Other: She never open her eyes during our time together Chest Other: Rales. Possible rattle Resp Effort & Inspection: abnormal respiratory pattern, grunting and nasal flaring Extrem Other: Both hands very edematous and bruised Results Last Vital Signs Temp 96.1 F L 02/09/18 15:39 Pulse 97 H 02/09/18 18:15 Resp 27 H 02/09/18 18:15 BP 92/61 L 02/09/18 18:15 Pulse Ox 92 L 02/09/18 18:15 Labs : 02/09/18 06:12 02/09/18 06:12 Laboratory Results - last 24 hr 02/09/18 02/09/18 02/09/18 06:12 06:12 06:12 WBC 20.13 H D RBC 4.00 Hgb 12.4 D Hct 37.7 D MCV 94.3 MCH 31.0 MCHC 32.9 RDW 13.8 Plt Count 311 D MPV 13.4 H Immature Gran % 0.0 Neutrophils % 80.0 Lymphocytes % 10.0 Monocytes % 3.0 Eosinophils % 1.0 Basophils % 0.0 Absolute Neutrophils 16.51 H Band Neutrophils 2.0 Absolute Lymphocytes 2.82 Absolute Monocytes 0.60 Absolute Eosinophils 0.20 Absolute Basophils 0.00 Differential Comment Manual differential Atypical Lymphocytes 4 RBC Morphology See below Polychromasia Present Poikilocytosis 2+ Sample Site pCO2 pO2 O2 Saturation ABG pH ABG HCO3 ABG Total CO2 ABG Base Excess Oxygen Liter Flow FiO2 Sodium 147 H Potassium 3.4 L Chloride 111 H Carbon Dioxide 22.0 Anion Gap 14.0 H BUN 37 H D Creatinine 1.23 H Estimated GFR/1.73 m2 43.55 Glucose 97 D Calcium 8.8 Magnesium 1.9 Total Bilirubin 0.8 AST 34 ALT 47 Alkaline Phosphatase 249 H NT-Pro-B Natriuret Pep 2547 H Total Protein 6.5 Albumin 1.4 L 02/09/18 02/09/18 06:12 07:30 WBC RBC Hgb Hct MCV MCH MCHC RDW Plt Count MPV Immature Gran % Neutrophils % Lymphocytes % Monocytes % Eosinophils % Basophils % Absolute Neutrophils Band Neutrophils Absolute Lymphocytes Absolute Monocytes Absolute Eosinophils Absolute Basophils Differential Comment Atypical Lymphocytes RBC Morphology Polychromasia Poikilocytosis Sample Site Right radial pCO2 30 L pO2 66 L O2 Saturation 94 ABG pH 7.43 ABG HCO3 20 L ABG Total CO2 18 L ABG Base Excess Oxygen Liter Flow Niv FiO2 70 Sodium Potassium Chloride Carbon Dioxide Anion Gap BUN Creatinine Estimated GFR/1.73 m2 Glucose Calcium Magnesium Total Bilirubin AST ALT Alkaline Phosphatase NT-Pro-B Natriuret Pep Cancelled Total Protein Albumin
--- NOTE | 2018-02-09 19:01 | W.PODCONSULT ---
Date of service: 02/09/18 Time of Service: 19:01 History of Present Illness Chief Complaint: Right heel blister Narrative: This is a 67-year-old white female who is in the ICU brought in from the [facility]. The emergency department with apparent septic shock, urosepsis, pneumonia. I have been asked to evaluate her for a right heel blister formation. Her problem list is fairly extensive and includes early dementia, diabetes, elevated troponin I levels, COPD, hypertension, schizophrenia, lung nodules, Her current vitals BP 92/61 pulse 97 respiration 27 O2 sat 92% Labs show WBCs of 20.13 neutrophils 16.51 BUN of 37, creatinine 1.23 albumin one-point, sed rate 72 Current medications include acetaminophen, albuterol sulfate, albuterol ipratropium, D5W, Lasix, heparin, hydrocortisone, insulin. Pantoprazole, PFSH COPD (chronic obstructive pulmonary disease) (Chronic) Essential hypertension (Chronic) Breast cancer (Inactive) Alzheimer's dementia (Chronic) Diabetes (Chronic) Schizophrenia (Chronic) History of ankle surgery (Acute) Medical History Alzheimer's dementia (Chronic) Diabetes (Chronic) Schizophrenia (Chronic) Social History Smoking/Tobacco Use Status: Former Tobacco Use Surgical History History of ankle surgery (Acute) Social History Smoking/Tobacco Use Status: Former Tobacco Use Exam Narrative Exam Narrative: Patient is seen at bedside she is uncommunicative and does not respond to noxious stimuli. DP and PT pulses are manually palpable at the ankles graded plus 1 out of 4 bilaterally. No peripheral edema was noted. Calves were soft to palpation. No findings of DVT. Toenails are fungal no tinea pedis was observed. A semi-flaccid vesicle is noted?heel blister affecting the right heel. It appears fluid-filled serous bloody in nature. No erythema or is seen no active signs of infection. The blister Is closed and there is no active drainage. Skeletal exam appeared grossly benign. There were no gross joint inflammations or deformities noted. Neurologically difficult to assess at this time although the toes were downgoing. Impression: Right heel blister formation as stated above, grade 2 Onychomycosis Plan she already had heel protectors in place and pillows under her calves elevating the heel from the mattress. Mepilex dressings are applied to both heels and show no drainage. At this time no additional treatment is required for the right heel unless the blister Ruptures or signs of infection develop. We discussed Functions as a biologic dressing in the fluid within the blister is considered sterile at this time. I will be happy to reassess her in several days time if needed. Thank you for the consultation. Results Last Vital Signs Temp 35.6 C L 02/09/18 15:39 Pulse 97 H 02/09/18 18:15 Resp 27 H 02/09/18 18:15 BP 92/61 L 02/09/18 18:15 Pulse Ox 92 L 02/09/18 18:15 Labs : 02/09/18 06:12 02/09/18 06:12 Laboratory Results - last 24 hr 02/09/18 02/09/18 02/09/18 06:12 06:12 06:12 WBC 20.13 H D RBC 4.00 Hgb 12.4 D Hct 37.7 D MCV 94.3 MCH 31.0 MCHC 32.9 RDW 13.8 Plt Count 311 D MPV 13.4 H Immature Gran % 0.0 Neutrophils % 80.0 Lymphocytes % 10.0 Monocytes % 3.0 Eosinophils % 1.0 Basophils % 0.0 Absolute Neutrophils 16.51 H Band Neutrophils 2.0 Absolute Lymphocytes 2.82 Absolute Monocytes 0.60 Absolute Eosinophils 0.20 Absolute Basophils 0.00 Differential Comment Manual differential Atypical Lymphocytes 4 RBC Morphology See below Polychromasia Present Poikilocytosis 2+ Sample Site pCO2 pO2 O2 Saturation ABG pH ABG HCO3 ABG Total CO2 ABG Base Excess Oxygen Liter Flow FiO2 Sodium 147 H Potassium 3.4 L Chloride 111 H Carbon Dioxide 22.0 Anion Gap 14.0 H BUN 37 H D Creatinine 1.23 H Estimated GFR/1.73 m2 43.55 Glucose 97 D Calcium 8.8 Magnesium 1.9 Total Bilirubin 0.8 AST 34 ALT 47 Alkaline Phosphatase 249 H NT-Pro-B Natriuret Pep 2547 H Total Protein 6.5 Albumin 1.4 L 02/09/18 02/09/18 06:12 07:30 WBC RBC Hgb Hct MCV MCH MCHC RDW Plt Count MPV Immature Gran % Neutrophils % Lymphocytes % Monocytes % Eosinophils % Basophils % Absolute Neutrophils Band Neutrophils Absolute Lymphocytes Absolute Monocytes Absolute Eosinophils Absolute Basophils Differential Comment Atypical Lymphocytes RBC Morphology Polychromasia Poikilocytosis Sample Site Right radial pCO2 30 L pO2 66 L O2 Saturation 94 ABG pH 7.43 ABG HCO3 20 L ABG Total CO2 18 L ABG Base Excess Oxygen Liter Flow Niv FiO2 70 Sodium Potassium Chloride Carbon Dioxide Anion Gap BUN Creatinine Estimated GFR/1.73 m2 Glucose Calcium Magnesium Total Bilirubin AST ALT Alkaline Phosphatase NT-Pro-B Natriuret Pep Cancelled Total Protein Albumin
[2018-02-09] MEDS: Scopolamine 1 MG/3 DAYS PATCH TD (20:10)
[2018-02-09] MEDS: Haloperidol 5 MG/ML VIAL IM (20:10)
[2018-02-10] VITALS (8 sets, daily range): PULSE 96–112; RESP 20–30; O2SAT 85–89
[2018-02-10] MEDS: MORPHine 4 MG/ML SYR IV/SC (00:20)
[2018-02-10] MEDS: Moxifloxacin 0.5% 3 ML BTL OU ×2 (07:56→14:35)
[2018-02-10] MEDS: Normal Saline Flush 10 ML SYR IVP ×4 (07:58→21:54)
[2018-02-10] MEDS: Nystatin POWDER 60 GM JAR TP ×2 (07:59→14:35)
--- NOTE | 2018-02-10 10:32 | PGE_ITS ---
Date of Service Date of service: 02/10/18 Time of Service: 10:38 Assessment and Plan (1) Comfort measures only status: Current visit: Yes Status: Acute Patient's prognosis is exceedingly poor, and even if she does survive current illness her overall long-term prognosis remains very poor. Discussed case with Dr. Dinero and agree that CPR/Intubation would very likely be futile. 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 Family was made aware. Ms. Hollis appears comfortable today. Will continue with current regimen. Subjective Interval history since last seen: 67-year-old female resident of the [facility] with a past medical history significant for dementia and schizophrenia, admitted on 02/03 from [facility] Emergency Department with a diagnosis of Sepsis with evidence of both UTI and Pneumonia. Ms. Hollis has a history of diabetes mellitus not currently on medical treatment, prior CVA by CT findings, prior history of Breast Ca, and early onset Dementia. She presented to the Emergency Department after being found unresponsive at the care home with shallow respirations, hypotension, hyperglycemia, and tachycardia. She was also noted to be hypoxic by EMS. Initial evaluation in the ED was notable for significant leukocytosis, significant hyperglycemia, and profound hypernatremia. She also had evidence of an Acute Kidney Injury. Her Urinalysis was suggestive of UTI, and imaging showed evidence of a Left Lower Lobe infiltrate. The patient's lactate was also elevated. She was admitted to the ICU for sepsis. The patient initially required Pressor support and BiPap therapy, but had shown evidence of improvement as had been off both. She has however experienced slight hypoxia and worsening confusion overnight, and early this morning she became hypoxic, tachycardic, and hypotensive. She was administered IV Lasix by the covering physician. CT of her chest was obtained showing no evidence of PE, and with significant b/l Lower lobe and posterior upper lobe consolidations - as per conversation with radiology while not greatly correlating with earlier Chest Xrays, there is no significant difference than earlier imaging. Consideration was given for likely ongoing aspiration events. Review of blood cultures with MSSA on 02/03, and staph aureus by repeat cultures on 02/05. Again with MSSA on 02/06. She also has evidence of E.Coli on Urinary Culture. Her antibiotic regimen has been changed to include combination Oxacillin and Meropenem for coverage. Hypernatremia had also been under treatment and slowly improving. Ms. Hollis's mental status remained altered despite the above measures, and given her extemely poor prognosis and likely ongoing aspiration events Palliative Care Consult was obtained. The patient was seen by Dr. Patten who knows her well from providing her care at [facility]. In-depth discussion was had with the patient's brother and son, and case management discussed her case with the state. She was transitioned to Comfort Measures, and made DNR/DNI. Exam Narrative Exam Narrative: General: Appears older than stated age, laying in bed and unresponsive to verbal and tactile stimuli. Skin appears pale and poorly perfused. Overall appears to not be in distress and is comfortable. Objective Objective Clinical Data: Vital Signs Temperature 36.9 C 02/09/18 19:17 Temperature Source Tympanic 02/09/18 19:17 Pulse 105 H 02/09/18 19:30 Pulse 112 H 02/10/18 06:00 Respiratory Rate 22 02/10/18 06:00 Respiratory Effort 02/10/18 08:10 Respiratory Depth Shallow 02/10/18 08:10 Respiratory Pattern Irregular 02/10/18 08:10 Blood Pressure 94/61 L 02/09/18 19:30 Blood Pressure Mean 68 02/09/18 19:30 Blood Pressure Position Right Lateral 02/09/18 03:00 Pulse Oximetry 85 L 02/10/18 06:00 Oxygen Delivery Method Room Air 02/09/18 21:00 Oxygen Flow Rate 0 02/09/18 21:00 Fraction of Inspired Oxygen (FIO2) 40 02/09/18 17:20 Pain Level 0 02/09/18 03:00 Intake & Output 02/09/18 02/09/18 02/10/18 11:59 23:59 11:59 Intake Total 230 / 230 1280 / 1280 Output Total 2200 / 2200 1600 / 1600 400 / 400 Balance -1970 / -1970 -320 / -320 -400 / -400 Weight 70.5 kg Intake: IV 230 / 230 1280 / 1280 Output: Urine 2200 / 2200 1600 / 1600 400 / 400 Other: Urine Color Straw Light Catrina Light Catrina Urine Appearance Cloudy Clear Clear Comment [place] intact and draining well. [place] intact and draining well. Stool Size Moderate Stool Characteristics Soft Formed Laboratory Results WBC 20.13 k/cumm (4.4-10.8) H D 02/09/18 06:12 RBC 4.00 m/cumm (4.00-5.20) 02/09/18 06:12 Hgb 12.4 g/dL (12.0-15.5) D 02/09/18 06:12 Hct 37.7 % (36.0-46.0) D 02/09/18 06:12 MCV 94.3 fL (80-95) 02/09/18 06:12 MCH 31.0 pg (27.0-33.0) 02/09/18 06:12 MCHC 32.9 g/dL (32.0-36.0) 02/09/18 06:12 RDW 13.8 % (11.7-14.6) 02/09/18 06:12 Plt Count 311 x1000/uL (130-400) D 02/09/18 06:12 MPV 13.4 fL (8.0-11.0) H 02/09/18 06:12 Immature Gran % 0.0 02/09/18 06:12 Neutrophils % 80.0 02/09/18 06:12 Lymphocytes % 10.0 02/09/18 06:12 Monocytes % 3.0 02/09/18 06:12 Eosinophils % 1.0 02/09/18 06:12 Basophils % 0.0 02/09/18 06:12 Absolute Neutrophils 16.51 k/cumm (1.2-6.7) H 02/09/18 06:12 Band Neutrophils 2.0 % 02/09/18 06:12 Absolute Lymphocytes 2.82 k/cumm (1.2-3.4) 02/09/18 06:12 Absolute Monocytes 0.60 k/cumm (0.11-0.7) 02/09/18 06:12 Absolute Eosinophils 0.20 k/cumm (0.0-0.7) 02/09/18 06:12 Absolute Basophils 0.00 k/cumm (0.0-0.2) 02/09/18 06:12 Metamyelocytes 1.0 % 02/06/18 06:25 Myelocytes 4.0 % 02/04/18 09:10 Nucleated RBCs 1 /100WBC 02/04/18 09:10 Differential Comment Manual differential 02/09/18 06:12 Atypical Lymphocytes 4 02/09/18 06:12 RBC Morphology See below 02/09/18 06:12 Polychromasia Present 02/09/18 06:12 Hypochromasia 1+ 02/04/18 09:10 Poikilocytosis 2+ 02/09/18 06:12 Macrocytosis 1+ 02/06/18 06:25 PT 19.5 sec (9.3-10.8) H 02/04/18 06:23 INR 2.0 (1.0-3.5) 02/04/18 06:23 APTT 26.1 sec (21.0-31.4) 02/03/18 18:00 D-Dimer 2213 ng/mlFEU (<500) H 02/06/18 06:25 Sample Site Right radial 02/09/18 07:30 pCO2 30 mmHg (34-47) L 02/09/18 07:30 pO2 66 mmHg (83-108) L 02/09/18 07:30 O2 Saturation 94 % (94-98) 02/09/18 07:30 ABG pH 7.43 (7.35-7.45) 02/09/18 07:30 ABG HCO3 20 mmol/L (22-28) L 02/09/18 07:30 ABG Total CO2 18 mmol/L (22-29) L 02/09/18 07:30 ABG Base Excess mmol/L (-3-3) 02/09/18 07:30 Oxygen Liter Flow Niv L 02/09/18 07:30 FiO2 70 % 02/09/18 07:30 Sodium 147 mmol/L (136-145) H 02/09/18 06:12 Potassium 3.4 mmol/L (3.5-5.1) L 02/09/18 06:12 Chloride 111 mmol/L (98-107) H 02/09/18 06:12 Carbon Dioxide 22.0 mmol/L (21.0-32.0) 02/09/18 06:12 Anion Gap 14.0 mmol/L (3-11) H 02/09/18 06:12 BUN 37 mg/dL (7-18) H D 02/09/18 06:12 Creatinine 1.23 mg/dL (0.55-1.02) H 02/09/18 06:12 Estimated GFR/1.73 m2 43.55 (mL/min/1.73m2) 02/09/18 06:12 Glucose 97 mg/dL (70-100) D 02/09/18 06:12 Hemoglobin A1c 10.0 % (4.5-6.2) H 02/04/18 09:10 Lactate 2.1 mmol/L (0.6-1.4) H 02/08/18 06:35 Calcium 8.8 mg/dL (8.5-10.1) 02/09/18 06:12 Magnesium 1.9 mg/dL (1.8-2.4) 02/09/18 06:12 Total Bilirubin 0.8 mg/dL (0.2-1.0) 02/09/18 06:12 AST 34 U/L (15-37) 02/09/18 06:12 ALT 47 U/L (12-78) 02/09/18 06:12 Alkaline Phosphatase 249 U/L (46-116) H 02/09/18 06:12 Ammonia 53 umol/L (11-32) H 02/03/18 19:55 Troponin I 0.14 ng/mL (0.00-0.06) H 02/04/18 09:10 C-Reactive Protein > 25.00 mg/dL (0.0-0.3) H 02/06/18 06:25 NT-Pro-B Natriuret Pep 2547 pg/mL (-299) H 02/09/18 06:12 Total Protein 6.5 g/dL (6.4-8.2) 02/09/18 06:12 Albumin 1.4 g/dL (3.4-5.0) L 02/09/18 06:12 Lipase 98 U/L (73-393) 02/03/18 18:00 TSH 0.54 uIU/mL (0.358-3.74) 02/03/18 18:00 Urine Color Yellow (Yellow) 02/03/18 19:00 Urine Clarity Sl cloudy 02/03/18 19:00 Urine pH 5.5 (5-8) 02/03/18 19:00 Ur Specific [place] 1.010 (1.005-1.025) 02/03/18 19:00 Urine Protein Negative mg/dL (Negative) 02/03/18 19:00 Urine Ketones Negative mg/dL (Negative) 02/03/18 19:00 Urine Blood Moderate (Negative) H 02/03/18 19:00 Urine Nitrite Positive (Negative) H 02/03/18 19:00 Urine Bilirubin Negative (Negative) 02/03/18 19:00 Urine Urobilinogen 0.2 EU/dL (Up TO 0.2) 02/03/18 19:00 Ur Leukocyte Esterase Trace (Negative) H 02/03/18 19:00 Urine RBC >50 (0-2) H 02/03/18 19:00 Urine WBC 5-10 HPF (0-5) 02/03/18 19:00 Ur Epithelial Cells Few HPF (Negative) 02/03/18 19:00 Urine Crystals Negative HPF (Negative) 02/03/18 19:00 Urine Bacteria Many HPF (Negative) 02/03/18 19:00 Urine Casts Negative LPF (Negative) 02/03/18 19:00 Urine Mucus Negative (Negative) 02/03/18 19:00 Urine Other Negative (Negative) 02/03/18 19:00 Ur Culture Indicated? Yes 02/03/18 19:00 Urine Osmolality 502 mosm/Kg (150-1150) 02/06/18 10:30 Ur Random Sodium 7 mmol/L 02/06/18 10:30 Urine Glucose >=1000 mg/dL (Negative) H 02/03/18 19:00 Vancomycin Trough Cancelled 02/07/18 21:00 Total Valproic Acid 12.0 ug/mL (50-100) L 02/04/18 09:10 Path Cons Comment 02/04/18 09:10
--- NOTE | 2018-02-10 12:31 | PDOC.CMPRO ---
- If Service Date Differs Date of service: 02/10/18 Time of Service: 12:31 Care Management Progress Note S/O: Tri has transition to comfort measures last evening. Per report her son and grandchildren where here to visit. Her Brother was here visiting as well last night. Plan is for her to stay at the hospital until she dies on comfort measures. She remains in the ICU she is receiving pain management scheduled and supportive care. MELISSA met with primary nurse obtained updates and contacted the [facility] to provide update. MELISSA contacted Stephanie in [place] they will help Brother to complete the general assistance application to assist with cost. MELISSA left a voicemail for Miguelito and provided contact information for Stephanie. A: Tri is a 67 year old female admitted from the [facility] with sepsis transition to comfort measures only. P: Tri will pass away here at [facility], CM is assisting Brother is obtaining home services to meet the needs of Kalina after she passes. MELISSA will follow up with both family and Stephanie to assist with coordination.
--- NOTE | 2018-02-10 13:29 | CMPROGNOTE_ITS ---
- If Service Date Differs Date of service: 02/10/18 Time of Service: 12:31 Care Management Progress Note S/O: Tri has transition to comfort measures last evening. Per report her son and grandchildren where here to visit. Her Brother was here visiting as well last night. Plan is for her to stay at the hospital until she dies on comfort measures. She remains in the ICU she is receiving pain management scheduled and supportive care. MELISSA met with primary nurse obtained updates and contacted the [facility] to provide update. MELISSA contacted Stephanie in [place] they will help Brother to complete the general assistance application to assist with cost. MELISSA left a voicemail for Miguelito and provided contact information for Stephanie. A: Tri is a 67 year old female admitted from the [facility] with sepsis transition to comfort measures only. P: Tri will pass away here at [facility], CM is assisting Brother is obtaining home services to meet the needs of Kalina after she passes. MELISSA will follow up with both family and Stephanie to assist with coordination.
[2018-02-10] MEDS: Glycopyrrolate 0.2 MG/1 ML VIAL IVP (21:54)
[2018-02-11] MEDS: Glycopyrrolate 0.2 MG/1 ML VIAL IVP ×2 (00:24→12:34)
[2018-02-11] MEDS: Normal Saline Flush 10 ML SYR IVP ×3 (00:24→14:37)
--- NOTE | 2018-02-11 02:51 | NUR.NOTE ---
Nursing Note: 02/10/181921 Report received from ALEKSEY Martínez in ICU. Patient transferred from ICU room 220 to Med/Surg room 214 via her bed at 1945
[2018-02-11] MEDS: Nystatin POWDER 60 GM JAR TP ×2 (08:15→14:37)
[2018-02-11] MEDS: Moxifloxacin 0.5% 3 ML BTL OU ×2 (08:15→14:38)
--- NOTE | 2018-02-11 13:22 | NUR.NOTE ---
On 02/04/18 I thought there was a string in the left side of the lades nose. As I looked closer though the c-pap I thought it was a back of an earring like the round clear circular peace. The Nurse Dee went and got twesers and grabbed it with them and pulled and it was a very miss shaped and discolored nasal trumpet with lots of dark mucus on the end. Nursing Note:
--- NOTE | 2018-02-11 13:27 | PDOC.CMPRO ---
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 She is now on MED/SURG and acute level of care; she appears comfortable. No change to overall plan. A: Tri is a 67 year old female admitted from the [facility] with sepsis transition to comfort measures only. P: Tri will pass away here at [facility], CM spoke with her brother and YOLIE Farley who reported he has an appointment at [facility] today at 1400.
--- NOTE | 2018-02-11 13:47 | CMPROGNOTE_ITS ---
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 She is now on MED/SURG and acute level of care; she appears comfortable. No change to overall plan. A: Tri is a 67 year old female admitted from the [facility] with sepsis transition to comfort measures only. P: Tri will pass away here at [facility], CM spoke with her brother and YOLIE Farley who reported he has an appointment at [facility] today at 1400.
[2018-02-11] MEDS: LORazepam 2 MG/ML VIAL IV/SC (14:36)
--- NOTE | 2018-02-11 14:59 | PGE_ITS ---
Assessment and Plan (1) Comfort measures only status: Current visit: No Status: Acute Patient's prognosis is exceedingly poor, and even if she does survive current illness her overall long-term prognosis remains very poor. Discussed case with Dr. Dinero and agree that CPR/Intubation would very likely be futile. 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 Family was made aware. Ms. Hollis appears comfortable t clarence. Will continue with current regimen. Subjective Interval history since last seen: 67-year-old female resident of the [facility] with a past medical history significant for dementia and schizophrenia, [facility] with a diagnosis of Sepsis with evidence of both UTI and Pneumonia. Ms. Hollis has a history of diabetes mellitus not currently on medical treatment, prior CVA by CT findings, prior history of Breast Ca, and early onset Dementia. She presented to the Emergency Department after being found unresponsive at the detention with shallow respirations, hypotension, hyperglycemia, and tachycardia. She was also noted to be hypoxic by EMS. Initial evaluation in the ED was notable for significant leukocytosis, significant hyperglycemia, and profound hypernatremia. She also had evidence of an Acute Kidney Injury. Her Urinalysis was suggestive of UTI, and imaging showed evidence of a Left Lower Lobe infiltrate. The patient's lactate was also elevated. She was admitted to the ICU for sepsis. The patient initially required Pressor support and BiPap therapy, but had shown evidence of improvement as had been off both. She has however experienced slight hypoxia and worsening confusion overnight, and early this morning she became hypoxic, tachycardic, and hypotensive. She was administered IV Lasix by the covering physician. CT of her chest was obtained showing no evidence of PE, and with significant b/l Lower lobe and posterior upper lobe consolidations - as per conversation with radiology while not greatly correlating with earlier Chest Xrays, there is no significant difference than earlier imaging. Consideration was given for likely ongoing aspiration events. Review of blood cultures with MSSA on 02/03, and staph aureus by repeat cultures on 02/05. Again with MSSA on 02/06. She also has evidence of E.Coli on Urinary Culture. Her antibiotic regimen has been changed to include combination Oxacillin and Meropenem for coverage. Hypernatremia had also been under treatment and slowly improving. Ms. Hollis's mental status remained altered despite the above measures, and given her extemely poor prognosis and likely ongoing aspiration events Palliative Care Consult was obtained. The patient was seen by Dr. Patten who knows her well from providing her care at [facility]. In-depth discussion was had with the patient's brother and son, and case management discussed her case with the state. She was transitioned to Comfort Measures, and made DNR/DNI. Exam Narrative Exam Narrative: General: Appears older than stated age, laying in bed and u nresponsive to verbal and tactile stimuli. Skin appears pale and poorly perfused. Overall appears to not be in distress and is comfortable. Objective Objective Clinical Data: Vital Signs Temperature 36.9 C 02/09/18 19:17 Temperature Source Tympanic 02/09/18 19:17 Pulse 105 H 02/09/18 19:30 Pulse 110 H 02/10/18 07:00 Respiratory Rate 21 02/10/18 07:00 Respiratory Effort 02/11/18 08:15 Respiratory Depth Normal 02/11/18 08:15 Respiratory Pattern Normal 02/11/18 08:15 Blood Pressure 94/61 L 02/09/18 19:30 Blood Pressure Mean 68 02/09/18 19:30 Blood Pressure Position Right Lateral 02/09/18 03:00 Pulse Oximetry 89 L 02/10/18 10:10 Oxygen Delivery Method Nasal Cannula 02/10/18 07:00 Oxygen Flow Rate 2 02/10/18 07:00 Fraction of Inspired Oxygen (FIO2) 40 02/09/18 17:20 Pain Level 0 02/09/18 03:00 Intake & Output 02/10/18 02/11/18 02/11/18 23:59 11:59 23:59 Intake Total 30 / 30 Output Total 325 / 725 450 / 750 300 / 750 Balance -295 / -695 -450 / -750 -300 / -750 Intake: IV 30 / 30 Output: Urine 325 / 725 450 / 750 300 / 750 Other: Urine Color Yellow Yellow Yellow Straw Urine Appearance Cloudy Cloudy Cloudy Comment Dark yellow DK yellow Stool Size Small Stool Characteristics Soft Formed Brown Laboratory Results WBC 20.13 k/cumm (4.4-10.8) H D 02/09/18 06:12 RBC 4.00 m/cumm (4.00-5.20) 02/09/18 06:12 Hgb 12.4 g/dL (12.0-15.5) D 02/09/18 06:12 Hct 37.7 % (36.0-46.0) D 02/09/18 06:12 MCV 94.3 fL (80-95) 02/09/18 06:12 MCH 31.0 pg (27.0-33.0) 02/09/18 06:12 MCHC 32.9 g/dL (32.0-36.0) 02/09/18 06:12 RDW 13.8 % (11.7-14.6) 02/09/18 06:12 Plt Count 311 x1000/uL (130-400) D 02/09/18 06:12 MPV 13.4 fL (8.0-11.0) H 02/09/18 06:12 Immature Gran % 0.0 02/09/18 06:12 Neutrophils % 80.0 02/09/18 06:12 Lymphocytes % 10.0 02/09/18 06:12 Monocytes % 3.0 02/09/18 06:12 Eosinophils % 1.0 02/09/18 06:12 Basophils % 0.0 02/09/18 06:12 Absolute Neutrophils 16.51 k/cumm (1.2-6.7) H 02/09/18 06:12 Band Neutrophils 2.0 % 02/09/18 06:12 Absolute Lymphocytes 2.82 k/cumm (1.2-3.4) 02/09/18 06:12 Absolute Monocytes 0.60 k/cumm (0.11-0.7) 02/09/18 06:12 Absolute Eosinophils 0.20 k/cumm (0.0-0.7) 02/09/18 06:12 Absolute Basophils 0.00 k/cumm (0.0-0.2) 02/09/18 06:12 Metamyelocytes 1.0 % 02/06/18 06:25 Myelocytes 4.0 % 02/04/18 09:10 Nucleated RBCs 1 /100WBC 02/04/18 09:10 Differential Comment Manual differential 02/09/18 06:12 Atypical Lymphocytes 4 02/09/18 06:12 RBC Morphology See below 02/09/18 06:12 Polychromasia Present 02/09/18 06:12 Hypochromasia 1+ 02/04/18 09:10 Poikilocytosis 2+ 02/09/18 06:12 Macrocytosis 1+ 02/06/18 06:25 PT 19.5 sec (9.3-10.8) H 02/04/18 06:23 INR 2.0 (1.0-3.5) 02/04/18 06:23 APTT 26.1 sec (21.0-31.4) 02/03/18 18:00 D-Dimer 2213 ng/mlFEU (<500) H 02/06/18 06:25 Sample Site Right radial 02/09/18 07:30 pCO2 30 mmHg (34-47) L 02/09/18 07:30 pO2 66 mmHg (83-108) L 02/09/18 07:30 O2 Saturation 94 % (94-98) 02/09/18 07:30 ABG pH 7.43 (7.35-7.45) 02/09/18 07:30 ABG HCO3 20 mmol/L (22-28) L 02/09/18 07:30 ABG Total CO2 18 mmol/L (22-29) L 02/09/18 07:30 ABG Base Excess mmol/L (-3-3) 02/09/18 07:30 Oxygen Liter Flow Niv L 02/09/18 07:30 FiO2 70 % 02/09/18 07:30 Sodium 147 mmol/L (136-145) H 02/09/18 06:12 Potassium 3.4 mmol/L (3.5-5.1) L 02/09/18 06:12 Chloride 111 mmol/L (98-107) H 02/09/18 06:12 Carbon Dioxide 22.0 mmol/L (21.0-32.0) 02/09/18 06:12 Anion Gap 14.0 mmol/L (3-11) H 02/09/18 06:12 BUN 37 mg/dL (7-18) H D 02/09/18 06:12 Creatinine 1.23 mg/dL (0.55-1.02) H 02/09/18 06:12 Estimated GFR/1.73 m2 43.55 (mL/min/1.73m2) 02/09/18 06:12 Glucose 97 mg/dL (70-100) D 02/09/18 06:12 Hemoglobin A1c 10.0 % (4.5-6.2) H 02/04/18 09:10 Lactate 2.1 mmol/L (0.6-1.4) H 02/08/18 06:35 Calcium 8.8 mg/dL (8.5-10.1) 02/09/18 06:12 Magnesium 1.9 mg/dL (1.8-2.4) 02/09/18 06:12 Total Bilirubin 0.8 mg/dL (0.2-1.0) 02/09/18 06:12 AST 34 U/L (15-37) 02/09/18 06:12 ALT 47 U/L (12-78) 02/09/18 06:12 Alkaline Phosphatase 249 U/L (46-116) H 02/09/18 06:12 Ammonia 53 umol/L (11-32) H 02/03/18 19:55 Troponin I 0.14 ng/mL (0.00-0.06) H 02/04/18 09:10 C-Reactive Protein > 25.00 mg/dL (0.0-0.3) H 02/06/18 06:25 NT-Pro-B Natriuret Pep 2547 pg/mL (-299) H 02/09/18 06:12 Total Protein 6.5 g/dL (6.4-8.2) 02/09/18 06:12 Albumin 1.4 g/dL (3.4-5.0) L 02/09/18 06:12 Lipase 98 U/L (73-393) 02/03/18 18:00 TSH 0.54 uIU/mL (0.358-3.74) 02/03/18 18:00 Urine Color Yellow (Yellow) 02/03/18 19:00 Urine Clarity Sl cloudy 02/03/18 19:00 Urine pH 5.5 (5-8) 02/03/18 19:00 Ur Specific [place] 1.010 (1.005-1.025) 02/03/18 19:00 Urine Protein Negative mg/dL (Negative) 02/03/18 19:00 Urine Ketones Negative mg/dL (Negative) 02/03/18 19:00 Urine Blood Moderate (Negative) H 02/03/18 19:00 Urine Nitrite Positive (Negative) H 02/03/18 19:00 Urine Bilirubin Negative (Negative) 02/03/18 19:00 Urine Urobilinogen 0.2 EU/dL (Up TO 0.2) 02/03/18 19:00 Ur Leukocyte Esterase Trace (Negative) H 02/03/18 19:00 Urine RBC >50 (0-2) H 02/03/18 19:00 Urine WBC 5-10 HPF (0-5) 02/03/18 19:00 Ur Epithelial Cells Few HPF (Negative) 02/03/18 19:00 Urine Crystals Negative HPF (Negative) 02/03/18 19:00 Urine Bacteria Many HPF (Negative) 02/03/18 19:00 Urine Casts Negative LPF (Negative) 02/03/18 19:00 Urine Mucus Negative (Negative) 02/03/18 19:00 Urine Other Negative (Negative) 02/03/18 19:00 Ur Culture Indicated? Yes 02/03/18 19:00 Urine Osmolality 502 mosm/Kg (150-1150) 02/06/18 10:30 Ur Random Sodium 7 mmol/L 02/06/18 10:30 Urine Glucose >=1000 mg/dL (Negative) H 02/03/18 19:00 Vancomycin Trough Cancelled 02/07/18 21:00 Total Valproic Acid 12.0 ug/mL (50-100) L 02/04/18 09:10 Path Cons Comment 02/04/18 09:10
--- NOTE | 2018-02-12 07:42 | W.PM.DS.N ---
Date of service: 02/11/18 Time of Service: 17:00 DS: Diagnosis Discharge Diagnosis (1) Comfort measures only status: Status: Acute Discharge Plan Disposition Patient Disposition: Condition: Critical Discharge Details Reason For Visit: HYPOLEMIC SHOCK:HHNK:PNEUMONIA Admit Date/Time: 02/03/18 19:31 Admit Provider: Maximo Staton Attending Provider: Maximo Staton Primary Care Provider: Chasity Vidal [facility] Course Hospital Course: 67-year-old female resident of the [facility] with a past medical history significant for dementia and schizophrenia, admitted on 02/03 from [facility] Emergency Department with a diagnosis of Sepsis with evidence of both UTI and Pneumonia. Ms. Hollis has a history of diabetes mellitus not currently on medical treatment, prior CVA by CT findings, prior history of Breast Ca, and early onset Dementia. She presented to the Emergency Department after being found unresponsive at the senior living with shallow respirations, hypotension, hyperglycemia, and tachycardia. She was also noted to be hypoxic by EMS. Initial evaluation in the ED was notable for significant leukocytosis, significant hyperglycemia, and profound hypernatremia. She also had evidence of an Acute Kidney Injury. Her Urinalysis was suggestive of UTI, and imaging showed evidence of a Left Lower Lobe infiltrate. The patient's lactate was also elevated. She was admitted to the ICU for sepsis. The patient initially required Pressor support and BiPap therapy, but had shown evidence of improvement as had been off both. She has however experienced slight hypoxia and worsening confusion overnight, and early this morning she became hypoxic, tachycardic, and hypotensive. She was administered IV Lasix by the covering physician. CT of her chest was obtained showing no evidence of PE, and with significant b/l Lower lobe and posterior upper lobe consolidations - as per conversation with radiology while not greatly correlating with earlier Chest Xrays, there is no significant difference than earlier imaging. Consideration was given for likely ongoing aspiration events. Review of blood cultures with MSSA on 02/03, and staph aureus by repeat cultures on 02/05. Again with MSSA on 02/06. She also has evidence of E.Coli on Urinary Culture. Her antibiotic regimen has been changed to include combination Oxacillin and Meropenem for coverage. Hypernatremia had also been under treatment and slowly improving. Ms. Hollis's mental status remained altered despite the above measures, and given her extemely poor prognosis and likely ongoing aspiration events Palliative Care Consult was obtained. The patient was seen by Dr. Patten who knows her well from providing her care at [facility]. In-depth discussion was had with the patient's brother and son, and case management discussed her case with the state. She was transitioned to Comfort Measures, and made DNR/DNI, and transferred to the medical surgical floor. She remained comfortable without any signs of distress. Family was well informed. Ms. Hollis peacefully on 02/11/2018 at 15:55. Discharge Data Date/Time: 02/11/18 15:55 Cause of : Sepsis Discharge Date/Time-TO BE ENTERED AT DEPARTURE: 02/11/18 15:55 Exam Narrative Exam Narrative: General: Appears older than stated age, laying in bed and unresponsive to verbal and tactile stimuli. Skin appears pale and poorly perfused. Overall appears to not be in distress and is comfortable. DS: Data Vitals/I&O Vitals and I&O: Vital Signs Temperature 36.9 C 02/09/18 19:17 Temperature Source Tympanic 02/09/18 19:17 Pulse 105 H 02/09/18 19:30 Pulse 110 H 02/10/18 07:00 Respiratory Rate 21 02/10/18 07:00 Respiratory Effort 02/11/18 08:15 Respiratory Depth Normal 02/11/18 08:15 Respiratory Pattern Normal 02/11/18 08:15 Blood Pressure 94/61 L 02/09/18 19:30 Blood Pressure Mean 68 02/09/18 19:30 Blood Pressure Position Right Lateral 02/09/18 03:00 Pulse Oximetry 89 L 02/10/18 10:10 Oxygen Delivery Method Nasal Cannula 02/11/18 08:00 Oxygen Flow Rate 2 02/11/18 08:00 Fraction of Inspired Oxygen (FIO2) 40 02/09/18 17:20 Pain Level 0 02/09/18 03:00 Intake & Output 02/11/18 02/11/18 02/12/18 11:59 23:59 11:59 Output Total 450 / 750 300 / 750 Balance -450 / -750 -300 / -750 Output: Urine 450 / 750 300 / 750 Other: Urine Color Yellow Yellow Urine Appearance Cloudy Cloudy Comment Dark yellow DK yellow Labs on day of discharge: Preliminary micro results at discharge 02/08/18 20:15 Blood Culture - Preliminary Blood NO GROWTH 72 HOURS PFSH COPD (chronic obstructive pulmonary disease) (Chronic) Essential hypertension (Chronic) Breast cancer (Inactive) Alzheimer's dementia (Chronic) Diabetes (Chronic) Schizophrenia (Chronic) History of ankle surgery (Acute) Medical History Alzheimer's dementia (Chronic) Diabetes (Chronic) Schizophrenia (Chronic) Social History Smoking/Tobacco Use Status: Former Tobacco Use Surgical History History of ankle surgery (Acute) Social History Smoking/Tobacco Use Status: Former Tobacco Use
--- NOTE | 2018-02-12 07:47 | DSE_ITS ---
Date of service: 02/11/18 Time of Service: 17:00 DS: Diagnosis Discharge Diagnosis (1) Comfort measures only status: Status: Acute Discharge Plan Disposition Patient Disposition: Condition: Critical Discharge Details Reason For Visit: HYPOLEMIC SHOCK:HHNK:PNEUMONIA Admit Date/Time: 02/03/18 19:31 Admit Provider: Maximo Staton Attending Provider: Maximo Staton Primary Care Provider: Chasity Vidal [facility] Course Hospital Course: 67-year-old female resident of the [facility] with a past medical history significant for dementia and schizophrenia, admitted on 02/03 from [facility] Emergency Department with a diagnosis of Sepsis with evidence of both UTI and Pneumonia. Ms. Hollis has a history of diabetes mellitus not currently on medical treatment, prior CVA by CT findings, prior history of Breast Ca, and early onset Dementia. She presented to the Emergency Department after being found unresponsive at the halfway with shallow respirations, hypotension, hyperglycemia, and tachycardia. She was also noted to be hypoxic by EMS. Initial evaluation in the ED was notable for significant leukocytosis, significant hyperglycemia, and profound hypernatremia. She also had evidence of an Acute Kidney Injury. Her Urinalysis was suggestive of UTI, and imaging showed evidence of a Left Lower Lobe infiltrate. The patient's lactate was also elevated. She was admitted to the ICU for sepsis. The patient initially required Pressor support and BiPap therapy, but had shown evidence of improvement as had been off both. She has however experienced slight hypoxia and worsening confusion overnight, and early this morning she became hypoxic, tachycardic, and hypotensive. She was administered IV Lasix by the [facility] physician. CT of her chest was obtained showing no evidence of PE, and with significant b/l Lower lobe and posterior upper lobe consolidations - as per conversation with radiology while not greatly correlating with earlier Chest Xrays, there is no significant difference than earlier imaging. Consideration was given for likely ongoing aspiration events. Review of blood cultures with MSSA on 02/03, and staph aureus by repeat cultures on 02/05. Again with MSSA on 02/06. She also has evidence of E.Coli on Urinary Culture. Her antibiotic regimen has been changed to include combination Oxacillin and Meropenem for coverage. Hypernatremia had also been under treatment and slowly improving. Ms. Hollis's mental status remained altered despite the above measures, and given her extemely poor prognosis and likely ongoing aspiration events Palliative Care Consult was obtained. The patient was seen by Dr. Patten who knows her well from providing her care at [facility]. In-depth discussion was had with the patient's brother and son, and case management discussed her case with the state. She was transitioned to Comfort Measures, and made DNR/DNI, and transferred to the medical surgical floor. She remained comfortable without any signs of distress. Family was well informed. Ms. Hollis peacefully on 02/11/2018 at 15:55. Discharge Data Date/Time: 02/11/18 15:55 Cause of : Sepsis Discharge Date/Time-TO BE ENTERED AT DEPARTURE: 02/11/18 15:55 Exam Narrative Exam Narrative: General: Appears older than stated age, laying in bed and unresponsive to verbal and tactile stimuli. Skin appears pale and poorly perfused. Overall appears to not be in distress and is comfortable. DS: Data Vitals/I&O Vitals and I&O: Vital Signs Temperature 36.9 C 02/09/18 19:17 Temperature Source Tympanic 02/09/18 19:17 Pulse 105 H 02/09/18 19:30 Pulse 110 H 02/10/18 07:00 Respiratory Rate 21 02/10/18 07:00 Respiratory Effort 02/11/18 08:15 Respiratory Depth Normal 02/11/18 08:15 Respiratory Pattern Normal 02/11/18 08:15 Blood Pressure 94/61 L 02/09/18 19:30 Blood Pressure Mean 68 02/09/18 19:30 Blood Pressure Position Right Lateral 02/09/18 03:00 Pulse Oximetry 89 L 02/10/18 10:10 Oxygen Delivery Method Nasal Cannula 02/11/18 08:00 Oxygen Flow Rate 2 02/11/18 08:00 Fraction of Inspired Oxygen (FIO2) 40 02/09/18 17:20 Pain Level 0 02/09/18 03:00 Intake & Output 02/11/18 02/11/18 02/12/18 11:59 23:59 11:59 Output Total 450 / 750 300 / 750 Balance -450 / -750 -300 / -750 Output: Urine 450 / 750 300 / 750 Other: Urine Color Yellow Yellow Urine Appearance Cloudy Cloudy Comment Dark yellow DK yellow Labs on day of discharge: Preliminary micro results at discharge 02/08/18 20:15 Blood Culture - Preliminary Blood NO GROWTH 72 HOURS PFSH COPD (chronic obstructive pulmonary disease) (Chronic) Essential hypertension (Chronic) Breast cancer (Inactive) Alzheimer's dementia (Chronic) Diabetes (Chronic) Schizophrenia (Chronic) History of ankle surgery (Acute) Medical History Alzheimer's dementia (Chronic) Diabetes (Chronic) Schizophrenia (Chronic) Social History Smoking/Tobacco Use Status: Former Tobacco Use Surgical History History of ankle surgery (Acute) Social History Smoking/Tobacco Use Status: Former Tobacco Use
[2018-02-24 16:02] LABS: Troponin I 0.13 ng/mL (0.00-0.06)
== END 2018-02-11 15:55 | disposition expired | DRG 871 ==
LOC: ER 20:09 → ICU 02-04 07:43 → MS 02-11 17:28 → ICU 02-16 10:47
PROVIDERS: General Practice; Internal Medicine; Physician Assistant; Admitting Provider Internal Medicine; Emergency Provider Physician Assistant; PCP Family Medicine; Referring Provider Internal Medicine; Visit Provider Internal Medicine
DX: A41.01 Sepsis due to Methicillin susceptible Staphylococcus aureus (principal); E11.00 Type 2 diabetes mellitus with hyperosmolarity without nonketotic hyperglycemic-hyperosmolar coma (NKHHC); J18.9 Pneumonia, unspecified organism; G92 Toxic encephalopathy; N39.0 Urinary tract infection, site not specified; N17.9 Acute kidney failure, unspecified; J44.0 Chronic obstructive pulmonary disease with (acute) lower respiratory infection; E87.0 Hyperosmolality and hypernatremia; I24.8 Other forms of acute ischemic heart disease; J44.1 Chronic obstructive pulmonary disease with (acute) exacerbation; R57.1 Hypovolemic shock; R74.8 Abnormal levels of other serum enzymes; R09.02 Hypoxemia; I10 Essential (primary) hypertension; T17.1XXA Foreign body in nostril, initial encounter; G30.0 Alzheimer's disease with early onset; F02.80 Dementia in other diseases classified elsewhere, unspecified severity, without behavioral disturbance, psychotic disturbance, mood disturbance, and anxiety; F20.9 Schizophrenia, unspecified; Z51.5 Encounter for palliative care; Z66 Do not resuscitate; Z87.891 Personal history of nicotine dependence; D53.9 Nutritional anemia, unspecified; J01.90 Acute sinusitis, unspecified; B96.89 Other specified bacterial agents as the cause of diseases classified elsewhere; B96.20 Unspecified Escherichia coli [E. coli] as the cause of diseases classified elsewhere; Z16.12 Extended spectrum beta lactamase (ESBL) resistance; L89.629 Pressure ulcer of left heel, unspecified stage; L89.619 Pressure ulcer of right heel, unspecified stage; L89.159 Pressure ulcer of sacral region, unspecified stage; T24.011A Burn of unspecified degree of right thigh, initial encounter; X58.XXXA Exposure to other specified factors, initial encounter
CPT/HCPCS: 36410; 36415; 36416; 36556; 36592; 51702; 71275; 80048; 80053; 82805; 82947; 82962; 83690; 83935; 87040; 87077; 87081; 92610; 93005; 93306; 94640; 94644; 96361; 96365; 96366; 96368; 96375; 97163; 99231; 99232; 99233; 99238; 99255; 99291; 99292; G8996; 36600; 70450; 71045; 80164; 80202; 81003; 81015; 82140; 83036; 83605; 83735; 83880; 84132; 84295; 84300; 84443; 84484; 85025; 85379; 85610; 85730; 86140; 87070; 87086; 87186; 87205; 93010; 94660; 99356; J1630; J1644; J1650; J1720; J1940; J1941; J2060; J2270; J2543; J2700; J3475; J3480; J3490; J7060; J7613; J7620